=== PATIENT | female | born 1935 | race Caucasian/White ===

== ENCOUNTER 2016-09-05 12:18 | Inpatient (IN) | payer MEDICARE ==
[~2016-09-05] VITALS: Ht 160 cm; Wt 79.2 kg
[2016-09-05] VITALS (9 sets, daily range): BP systolic 63–145; BP diastolic 48–62; PULSE 74–93; RESP 12–19; O2SAT 98–100
[~2016-09-05 12:18] MED LIST: ALPR0.5T8 PO; ATOR20TA65 PO; BUDE3CAP7 PO; ELTR25TA PO; FOLI0.8T PO; FUR20 PO; GLPZ5T PO; HYDR-4003 PO; INSU100I16 SUBQ; INSU100V7 SUBQ; IRON 65 MG PO; ISOS30TA8 PO; LEVO150T5 PO; OMEP20TA24 PO; OXYC5TAB72 PO; SODI650T PO; SPIR50TA2 PO
--- NOTE | 2016-09-05 12:25 | ED.REPORT ---
HPI-General Illness Date of Service Sep 05, 2016 ED Provider: Gisselle Rosa MD 80 year old female with a history of cryptogenic cirrhosis, pancytopenia, esophageal varices, renal insufficiency, and blood transfusion 08/24/16 presents to the ER due to vomiting blood just prior to arrival. She was in the hospital here today seeing Dr. Barron, Oncology, for her biweekly paracentesis when she started experiencing "burning" in her esophagus, and began vomiting bright red blood after she was given IV Benadryl. Vomiting has been gradually improving since onset. Patient denies fever, chills, cough, and any other symptoms at this time. Nursing Notes Stated Complaint: VOMITING BLOOD Chief Complaint: Female Abdominal Pain Nursing Notes Reviewed: Yes Allergies: Coded Allergies: No Known Allergies (Verified , 03/23/16) Scheduled ([Iron 65 Mg]) 130 MG PO ESAU Atorvastatin Calcium (Atorvastatin Calcium) 20 Mg Tablet 20 MG PO DAILY Budesonide EC (Budesonide EC) 3 Mg Capdr...er 6 MG PO DAILY Eltrombopag Olamine (Promacta) 25 Mg Tablet 25 MG PO DIRECTED M,W,F Folic Acid (Folic Acid) 0.8 Mg Tablet 0.8 MG PO DAILY Furosemide (Furosemide) 20 Mg Tab 20 MG PO DAILY Glipizide (Glipizide) 5 Mg Tablet 5 MG PO DAILY Insulin Glargine (Lantus U100 Insulin Vial) 100 Unit/Ml Vial 65 UNIT SUBQ QPM- INSULIN Insulin NPL/Insulin Lispro (HumaLOG 75/25 U100 Insulin Kwikpen) 100 Unit/1 Ml Insuln.pen 15 UNIT SUBQ AM Isosorbide DN (Isosorbide DN) 30 Mg Tablet 30 MG PO DAILY Levothyroxine (Levothyroxine) 150 Mcg Tablet 150 MCG PO DAILY Omeprazole Magnesium (Prilosec Otc) 20 Mg Tablet.dr 20 MG PO DAILY Sodium Bicarbonate (Sodium Bicarbonate) 650 Mg Tablet 1,300 MG PO DAILY Spironolactone (Spironolactone) 50 Mg Tablet 50 MG PO DAILY Scheduled PRN Alprazolam (Alprazolam) 0.5 Mg Tablet 0.5 MG PO TID PRN PRN For Anxiety Hydrocodone-Acetaminophen 5-325 mg (Hydrocodone-Acetaminophen 5-325 mg) 1 Each Tablet 1 TABLET PO Q4H PRN PRN For Pain oxyCODONE (oxyCODONE) 5 Mg Tablet 5-10 MG PO Q4H PRN PRN For Pain General Time Seen by MD: 12:21 Chief Complaint Vomiting (Blood) Hx Obtained From: Patient Arrived By: Walk-in Sudden in Onset?: Yes Onset Occurred: Just prior to arrival Symptom Duration: Since onset Pertinent Negative: Pt denies other symptoms Similar Sx Previous: No Past Medical History Past Medical History Cryptogenic cirrhosis Pancytopenia Esophageal varices Renal insufficiency Anemia PUD Reports: Diabetes mellitus, Hyperlipidemia Reports: Atrial fibrillation, Thyroid disease (Hypothyroidism) Smoking History Unknown if Ever Smoker Social History Other Social History: Good social support Ambulatory Status Independent Review of Systems +Esophageal "Burning" Full Review of Systems Constitutional: Denies: Chills, Fever Respiratory: Denies: Non-productive cough, Shortness of breath Cardiovascular: Denies: Chest pain GI: Reports: Hematemesis, Nausea, Vomiting, Denies: Abdominal pain, Constipation, Diarrhea Complete sys rev & neg: except as marked. Physical Exam Vital Signs Vital Signs Date Time Temp Pulse Resp B/P Pulse Ox O2 Delivery O2 Flow Rate FiO2 09/05/16 14:16 74 15 133/62 100 09/05/16 13:28 92 19 124/57 98 Nasal Cannula 2 09/05/16 13:02 85 15 145/59 99 Nasal Cannula 2 09/05/16 12:22 93 12 144/59 99 Room Air Initial VS: Reviewed Head / Eyes: Atraumatic, Normocephalic Neck: Supple, Non-tender, Full range of motion Skin: Warm, Dry, No cyanosis Neurologic: Alert, Oriented, Nonfocal General/Constitutional: Awake, Alert, Well developed Appearance / Presentation: Positive: Cachectic, Frail Respiratory / Chest: Breath sounds NL, No respiratory distress, No rales, No rhonchi, No wheezing Cardiovascular: Heart rate NL, Regular rhythm, Heart sounds NL, Cap refill not delayed, Peripheral circulation NL Significant ascites. Ankle / Foot: Full range of motion, Neurologic intact, Vascular intact Mild redness to the dorsum of the right foot. Interpretation & Diagnostics Lab Results Interpretation Result Diagram: 09/05/16 1435 09/05/16 1208 Test 09/05/16 12:08 09/05/16 14:35 White Blood Count 3.2th/mm3 (3.8-10.1) Red Blood Count 3.31mil/mm3 (3.90-5.20) Mean Corpuscular Volume 91.2fL (81-100) Mean Corpuscular Hemoglobin 28.7pg (27.0-35.0) Mean Corpuscular Hemoglobin Concent 31.5% (32.0-37.0) Red Cell Distribution Width 17.2% (12.3-15.4) Platelet Count 37bil/L (150-400) Neutrophils (%) (Auto) 79.4% (40-74) Lymphocytes (%) (Auto) 12.2% (14-46) Monocytes (%) (Auto) 5.9% (4-12) Eosinophils (%) (Auto) 2.2% (0-5) Basophils (%) (Auto) 0.3% (0-3) Prothrombin Time 13.3sec (8.1-12.5) Prothromb Time International Ratio 1.24ratio Sodium Level 134mEq/L (134-144) Potassium Level 4.8mEq/L (3.5-5.2) Chloride Level 104mEq/L (97-108) Carbon Dioxide Level 16mmol/L (18-29) Blood Urea Nitrogen 59mg/dL (8-27) Creatinine 2.13mg/dL (0.57-1.00) Estimat Glomerular Filtration Rate 32mL/min (>59) Glucose Level 145mg/dL (60-99) Calcium Level 9.0mg/dL (8.5-10.1) Total Bilirubin 0.5mg/dL (0.0-1.2) Aspartate Amino Transf (AST/SGOT) 14U/L (0-50) Alanine Aminotransferase (ALT/SGPT) 8U/L (0-32) Alkaline Phosphatase 93U/L (25-165) Troponin T < 0.010ug/L (0.0-0.011) Total Protein 7.5g/dL (6.4-8.4) Albumin 3.6g/dL (3.4-5.0) Hold Calvo Top Tube Received (Received) Hemoglobin 8.7g/dL (12.0-15.6) Hematocrit 27.4% (35.0-46.0) Lab Results Interpretation: 08:30 Hematology Hgb 9.3 Hct 29.8 Plt Count 32 ECG Interpretation ECG Interpretation: Atrial-sensed ventricular-paced complexes, rate 85 Time: 13:00 Interpreted by: ED physician Re-Eval/Medical Decision Med Decision/Clinical Course 80-year-old woman presents with hematemesis and maroon stools. Hemodynamically stable. Cirrhosis with esophageal varices and chronic anemia with thrombocytopenia and a platelet count of 37. IV access is a significant issue. She has a single 20-gauge IV and was significant attempts no additional peripheral IVs were able to be obtained Contacted GI who is planning to do endoscopy. Explained that we need a central line placed first. Endoscopy will be under anesthesia and anesthesia has agreed to do the central line. This is complicated by the fact that she has a pacer defibrillator. Anesthesia has requested a echocardiogram prior to placing the central line. Echocardiogram has been ordered. In the meantime the patient remains hemodynamically stable. Platelets are infusing. There is a history of difficulty with transfusions however she has had all antibodies in our lab is able to screen for that and we will be able to transfuse and do have blood being made available at this point We will see if we are able to facilitate transfer to CCU bed directly from the operating room 15:30 Echo has been completed. Await read. CCU bed available In discussion with anesthesia and GI will see if the PICC line can be placed before we attempt a central line Continued hemodynamically stable however continued obvious GI bleeding with more overt melena just prior to transfer to the CCU Not completely resuscitated at this point she has had a liter of fluid she has had platelets first year of blood has been started we still have not only a single 20-gauge antecubital line in the right antecubital fossa. ICU staff admitting physician staff and additional ER staff are all aware of access status should she have an acute decompensation Time of Eval: 13:10 Re-Evaluation/Progress Note: Updated patient and daughter on the plan of care. Discussed lab and imaging results and need for admission. Patient is amenable to the plan. All other questions addressed. Consultation #1: Referral / Consult Name: Sindhu Alvarado MD Consulted With: On-call physician (MIGUEL) Call Returned at: 12:43 Lead Esthetician: Agrees with eval, Agrees with plan Note: Agrees to consult. Recommends antibiotics and admission. Consultation #2: Call Returned at: 13:14 Note: Called blood bank. Consultation #3: Referral / Consult Name: Abigail Castanon Hair Consulted With: Hospitalist Call Returned at: 14:00 Lead Esthetician: Agrees with eval, Agrees with plan, Accepts admit Consultation #4: Referral / Consult Name: Sindhu Alvarado MD Consulted With: On-call physician (GI) Call Returned at: 14:13 Note: Discussed access difficulties, and echocardiogram ordered, with GI and anesthesia. Both recommend PICC line. Consultation #5: Referral / Consult Name: Sindhu Alvarado MD Consulted With: On-call physician (GI) Call Returned at: 14:37 Note: Updated Dr. Alvarado on patient care. Counseled Regarding: Diagnosis, Lab results, Need for admission Discharge & Departure Primary Impression: Hematemesis Additional Impressions: Upper GI bleed Thrombocytopenia Cirrhosis Disposition: ADMITTED TO HOSPITAL Discharge Condition All VS Reviewed: Yes Condition: Stable Referrals: Liang Smith MD (PCP) Crit Care Except Billable Proc Time Spent: 30-74 minutes (37) Services Performed: Patient management by me, Time spent at bedside, Reviewing test results, Reviewing imaging, Discussing patient care, Documentation in record, Time with fam/surrogate Scribe Attestation Portions of this note were transcribed by Sudhir Dela Cruz. I, Dr. Rosa, personally performed the history, physical exam and medical decision-making; I reviewed and confirmed the accuracy of the information in the transcribed note. Signed by: Roberta Paz, 09/05/2016 at 15:11 copies to: Liang Smith MD, Shawna L MD Sep 05, 2016 12:25 SUDHIR DELA CRUZ Sep 05, 2016 12:37
[2016-09-05] MEDS ORDERED: 0.9% Sodium Chloride 1,000 ML IV ONE (12:37)
[2016-09-05] MEDS ORDERED: cefTRIAXone Inj 2,000 MG in Dextrose 5% Minibag Plus 50 ML IV ONE (12:40)
[2016-09-05] MEDS ORDERED: Octreotide Inj 500 MCG in 0.9% Sodium Chloride 100 ML IV ONE (12:40)
[2016-09-05 13:02] LABS: BASOPHILS % (AUTO) 0.3 % (0-3); EOSINOPHILS % (AUTO) 2.2 % (0-5); MONOCYTES % (AUTO) 5.9 % (4-12); Mean Corpuscular Hemoglobin 28.7 pg (27.0-35.0); Mean Corpuscular Volume 91.2 fL (81-100); NEUTROPHILS % (AUTO) 79.4 % (40-74)
[2016-09-05 13:03] LABS: INR 1.24 ratio
[2016-09-05 13:04] LABS: Platelet Count 37 bil/L (150-400)
[2016-09-05] MEDS: Lactated Ringer's 1,000 ML IV SCH ×2 (13:08→18:25)
[2016-09-05] MEDS ORDERED: Lactated Ringer's 500 ML IV PRN (13:08)
[2016-09-05] MEDS ORDERED: HYDROmorphone 1 mg/mL Inj IVPUSH PRN (13:10)
[2016-09-05] MEDS ORDERED: MetoCLOpramide 5 mg/mL 2 mL Inj IVPUSH PRN (13:10)
[2016-09-05] MEDS ORDERED: EPHEDrine Sulfate 50 mg/mL Inj IVPUSH PRN (13:10)
[2016-09-05] MEDS ORDERED: Ondansetron 2 mg/mL 2 mL Inj IVPUSH PRN (13:10)
[2016-09-05] MEDS ORDERED: Phenylephrine 10,000 mCg/mL Inj IVPUSH PRN (13:10)
[2016-09-05] MEDS ORDERED: Dexamethasone 4 mg/mL Inj IVPUSH PRN (13:10)
--- NOTE | 2016-09-05 13:14 | PCM.HPANE ---
Patient Data Surgeon Admitting Provider: Attending Provider: Primary Care Physician:Liang Smith MD Other Provider: Reason for Visit Vomiting Blood Ht/WT & BMI Height (Feet): 5 Height (Inches): 3 Weight (Kilograms): 63.64 Body Mass Index Allergies Coded Allergies: No Known Allergies (Verified , 03/23/16) Past Anesthesia History Anesthesia History: Denies:: Anesthesia Reactions Diabetes History Hx Diabetes?: Yes MRSA MRSA: No Medications Hypertension Medication: Yes Home Meds Incl Beta Patti: No Reported Medications Omeprazole Magnesium (Prilosec Otc)20 Mg Tablet.dr20 Mg PO DAILY #1 PKG Ref 0 08/22/16 Levothyroxine 150 Mcg Oxsjvt473 Mcg PO DAILY Ref 0 08/22/16 Eltrombopag Olamine (Promacta)25 Mg Hbslyq44 Mg PO DIRECTED M,W,F 11/02/15 Hydrocodone-Acetaminophen 5-325 mg 1 Each Tablet1 Tablet PO Q4H PRN For Pain Ref 0 02/17/15 Insulin Glargine (Lantus U100 Insulin Vial)100 Unit/Ml Vial65 Unit SUBQ QPM- INSULIN #1 VIAL Ref 0 09/02/14 Insulin NPL/Insulin Lispro (HumaLOG 75/25 U100 Insulin Kwikpen)100 Unit/1 Ml Insuln.pen15 Unit SUBQ AM #1 PENINJ Ref 0 09/02/14 Glipizide 5 Mg Tablet5 Mg PO DAILY 30 Days 09/02/14 Isosorbide DN 30 Mg Btahgc50 Mg PO DAILY Ref 0 09/02/14 Folic Acid 0.8 Mg Tablet0.8 Mg PO DAILY 09/02/14 Budesonide EC 3 Mg Capdr...er6 Mg PO DAILY Ref 0 09/02/14 Atorvastatin Calcium 20 Mg Kmzwba22 Mg PO DAILY #30 TABLET Ref 0 09/02/14 Alprazolam 0.5 Mg Tablet0.5 Mg PO TID PRN For Anxiety 30 Days Ref 0 09/02/14 Sodium Bicarbonate 650 Mg Tablet1,300 Mg PO DAILY 06/05/14 oxyCODONE 5 Mg Tablet5-10 Mg PO Q4H PRN For Pain Ref 0 04/24/14 Spironolactone 50 Mg Tafvnz24 Mg PO DAILY Ref 0 12/05/13 Furosemide 20 Mg Tab20 Mg PO DAILY Ref 0 12/05/13 [Iron 65 Mg] No Conflict Hknrq601 Mg PO ESAU 06/06/13 History History of ENT Problems?: No HEENT History: Denies:: Abnormal Airway Cataracts Difficult Intubation Dysphagia Glaucoma Hearing Problem Sinus Problem TMJ Denture Type: None Teeth Condition: Within Normal Limits Hx of Heart Problems?: Yes Cardiovascular History: Positive for:: Congestive Heart Failure Heart Murmur Irregular Heartbeat (afib) Denies:: Cardiac Surgery Chest Pain Edema Hypertension Thrombophlebitis Hx of Respiratory Problem?: No Respiratory History: Denies:: Tuberculosis Hx Neurologic Problems?: Yes Neurological History: Positive for:: Dizziness Hx of GI Problems?: Yes Hx of Problems?: Yes Genitourinary History: Denies:: HX of Hemodialysis Kidney Stones Urinary Tract Infection HX of Peritoneal Dialysis: No Female Hx: Denies:: Currently Endometriosis Pelvic Inflammatory Problems with Breasts? Hx Musculoskeletal Problems?: Yes Musculoskeletal History: Denies:: Joint Replacement Musculoskeletal Trauma Hx of Psycho/Social Problems?: Yes Psycho Social History: Positive for:: Anxiety Denies:: Bipolar Disorder Hx Depression Suicide Attempt Hx Surgeries?: Yes Hx Any Other Health Problems?: Yes Other History: Positive for:: Hospitalization Thyroid Disease (hypothyroid) Denies:: Cancer Endocrine Disease History Blood Transfusions: Positive for:: Blood Transfusions (platelets) Hx Diabetes: Yes Smoking Status: Unknown if Ever Smoker Stop/Bang Treated for Sleep Apnea?: No Do You Have a CPAP Machine?: No BRODIE Risk Assessment: Low Risk, <3 Yes Risk Assessment Category Category 1A: Patient has history of documented sleep apnea, and HAS NOT received any narcotic, sedative or anesthesia administration during this stay. Category 1B: Patient has history of documented sleep apnea, and HAS received any narcotic , sedative or anesthesia administration during this stay Category 2: Patient has SUSPECTED Obstructive Sleep Apnea, and HAS received any narcotic , sedative or anesthesia administration during this stay. Category 3: Patient has SUSPECTED Obstructive Sleep Apnea and HAS NOT received narcotic, sedative or anesthesia administration during this stay. Category 4: Outpatient in Procedural Areas with known sleep apnea or who screen positive for High Risk via the STOP/BANG questionnaire. Exam Exam Vital Signs Vital Signs Date Time Temp Pulse Resp B/P Pulse Ox O2 Delivery O2 Flow Rate FiO2 09/05/16 13:02 85 15 145/59 99 Nasal Cannula 2 09/05/16 12:22 93 12 144/59 99 Room Air General Appearance: Oriented X3 HEENT/AIRWAY: MP 2 Lungs: Other Heart: Other Meds/Labs/Diagnostics Labs Test 09/05/16 12:08 White Blood Count 3.2th/mm3 (3.8-10.1) Red Blood Count 3.31mil/mm3 (3.90-5.20) Hemoglobin 9.5g/dL (12.0-15.6) Hematocrit 30.2% (35.0-46.0) Mean Corpuscular Volume 91.2fL (81-100) Mean Corpuscular Hemoglobin 28.7pg (27.0-35.0) Mean Corpuscular Hemoglobin Concent 31.5% (32.0-37.0) Red Cell Distribution Width 17.2% (12.3-15.4) Platelet Count 37bil/L (150-400) Neutrophils (%) (Auto) 79.4% (40-74) Lymphocytes (%) (Auto) 12.2% (14-46) Monocytes (%) (Auto) 5.9% (4-12) Eosinophils (%) (Auto) 2.2% (0-5) Basophils (%) (Auto) 0.3% (0-3) Prothrombin Time 13.3sec (8.1-12.5) Prothromb Time International Ratio 1.24ratio Hold Calvo Top Tube Received (Received) Plan Impression Patient chart reviewed, patient interviewed and anesthestic plan with risks, benefits, and alternatives discussed, and informed consent obtained. ASA Physical Status: ASA4 Plus Emergency Anesthetic Support Modalities: Arterial Line, Central Line Anesthetic Plan: GA Bene/Risks/Altern/Consents: Yes HP Complete Prior to Induction: Yes Gee Pandey MD Sep 05, 2016 13:14
[2016-09-05 13:24] LABS: TROPONIN T < 0.010 ug/L (0.0-0.011)
--- NOTE | 2016-09-05 15:11 | DRSVH ---
PROCEDURE: US ABDOMEN DOPPLER, LIMITED INDICATIONS: cirrhosis, GI bleed TECHNIQUE: Real-time scanning was performed of the abdominal and retroperitoneal organs, with image documentatio n. Color and pulse Doppler interrogation was also performed of the hepatic and splenic vessels, or o f the lesion of interest. COMPARISON: Outside [facility], US, US ABDOMEN, 11/03/2015, 7:51. [facility], US, ABDOMEN LTD, 05/30/2016, 8:46. [facility], US, ABDOMEN LTD, 05/17/2016, 8:57. FINDINGS: Liver: Cirrhotic appearance of the liver redemonstrated which is diffusely heterogeneous and nodular. No definite focal hepatic abnormalities. Doppler: Main portal vein is patent, with luminal diameter of 18 mm (normal of 13-16 mm). On pulse Doppler interrogation, portal vein flow direction is hepatopetal. Hepatic artery Doppler waveforms d emonstrate normal systolic upstrokes. Hepatic veins are all patent, with expected triphasic Doppler waveforms. Gallbladder: Surgically absent. Biliary ducts: No intrahepatic biliary ductal dilatation. Extrahepatic bile duct is not well seen. Spleen: Spleen is enlarged in size and homogeneous in echotexture. Pancreas: Visualized portions of the pancreas appear normal. Kidneys: Both kidneys are normal in size and echotexture. Bilateral renal cortical thinning. Right kidney measures 7.7 cm long; left kidney measures 9.3 cm long. No hydronephrosis or nephrolithiasis. No solid renal masses. Aorta: Visualized abdominal aorta is normal in caliber at less than 3 cm. Iliacs: Proximal common iliac arteries are normal in caliber at less than 2.5 cm. IVC: Intrahepatic inferior vena cava is patent. Miscellaneous: Moderate ascites. IMPRESSION: 1. Cirrhotic appearance of the liver in no discrete focal hepatic abnormality is seen. 2. Enlarged portal vein otherwise normal hepatoportal Doppler assessment. 3. Splenomegaly suggesting portal hypertension. 4. Bilateral renal cortical thinning. 5. Moderate ascites. Dictated by: Frank NAVARRO Interpreted: Edwin Biggs MD on 09/05/2016 at 15:08 Transcribed by: ASHLEY on 09/05/2016 at 15:11 Approved by: Edwin Biggs M.D. on 09/05/2016 at 17:08
[2016-09-05] MEDS ORDERED: Sodium Chloride LOK Flush 10 mL Syringe IVFLUSH PRN ×2 (15:50)
--- NOTE | 2016-09-05 16:05 | DRSVH ---
[facility] [address] [place] [address] Echocardiogram Report Name: FAMILIA SHELLEYudy Date : 09/05/2016 Height: 63 in Hospital Exam Location: [facility] Weight: 140 lb Gender: Female BSA: 1.7 m2 : 1935 Age: 80 yrs BP: 133/62 mmHg Reason For Study: PACER, CENTRAL LINE, PRE-SURGERY History: CABG,PACEMAKER Ordering Physician: Performed By: Tatyana Valdivia Interpretation Summary The left ventricle is mildly dilated. Left ventricular ejection fraction is estimated to be 40%. Apical and anteroseptal akinesis, inferoapical dyskinesis, c/w prior LAD infarct The right ventricle is mildly dilated. There is a pacemaker lead in the right ventricle. The left atrium is severely dilated. There is mild to moderate mitral regurgitation. There is no hemodynamically significant valvular aortic stenosis. There is moderate tricuspid regurgitation. The right ventricular systolic pressure is estimated at 51 mmHg assuming a right atrial pressure of 8 mm Hg. There is mild pulmonic regurgitation. There are large-sized bilateral pleural effusions noted. Procedure: A two-dimensional transthoracic echocardiogram with color flow and Doppler was performed. The study quality was technically adequate. There is no prior echocardiogram noted for this patient. The patient has a paced rhythm. Left Ventricle: The left ventricle is mildly dilated. There is normal left ventricular wall thickness. The LVOT diameter is 2.2 cm. Left ventricular ejection fraction is estimated to be 40%. Apical and anteroseptal akinesis, inferoapical dyskinesis, c/w prior LAD infarct. Spectral Doppler of the mitral valve shows a normal E/A wave ratio. Right Ventricle: The right ventricle is mildly dilated. There is a pacemaker lead in the right ventricle. The right ventricular systolic function is normal. Atria: The left atrium is severely dilated. Right atrial size is normal. There is no Doppler evidence for an atrial septal defect. Mitral Valve: The mitral valve leaflets appear mildly thickened, but open well. There is mild mitral annular calcification. There is mild to moderate mitral regurgitation. Aortic Valve: The aortic valve is trileaflet. There is mild aortic valve sclerosis. The peak aortic velocity is 2.1 m/sec. The aortic valve mean gradient is 11 mmHg. The calculated aortic valve area is 1.9 cm2. There is no hemodynamically significant valvular aortic stenosis. No aortic regurgitation is present. Tricuspid Valve: The tricuspid valve leaflets are thin and pliable. There is moderate tricuspid regurgitation. The right ventricular systolic pressure is estimated at 51 mmHg assuming a right atrial pressure of 8 mm Hg. Pulmonic Valve: The pulmonic valve leaflets are thin and pliable; valve motion is normal. There is mild pulmonic regurgitation. Great Vessels: The aortic root is normal size. The dimensions of the ascending aorta are normal. The pulmonary artery is normal size. The IVC is of normal diameter and collapses less than 50% with a sniff. This suggests a right atrial pressure of 8 mm Hg. Pericardium/ Pleura There are large-sized bilateral pleural effusions noted. MMode/2D Measurements & Calculations LVIDd: 6.1 cm LA dimension: 5.2 cm RA long axis LVOT diam: 2.2 cm LVIDs: 4.8 cm AoV Opening FS: 21.0 % LA A2 area: 23.2 cm RA area EPSS: 1.1 cm LA A4 area: 26.1 cm Ao root diam IVSd: 0.83 cm LA length (vol) : 16.8 cm LVPWd: 0.90 cm RA vol asc Aorta Diam LA vol: 99.6 ml : 47.2 ml LA vol index RA Ao Arch Diam (Prox : 28.4 mm2 Trans): 2.7 cm : 59.9 ml/m2 LV barker. diameter/BSA LV sys. diameter/BSA RVD2 (mid) (cm/m^2): 3.7 (cm/m^2): 2.9 : 4.3 cm Doppler Measurements & Calculations Ao V2 max MV E max romain MV E/A: 1.2 TR max romain : 210.6 cm/sec : 122.0 cm/sec Pulm A Revs : 328.2 cm/sec Ao max P.7 mmHg MV A max romain Dur: 0.09 sec TR max PG Ao mean P.5 mmHg : 103.8 cm/sec MV A dur : 43.1 mmHg LVOT Max Romain MV P1/2t: 49.0 msec : 0.14 sec PA V2 max : 96.8 cm/sec : 144.9 cm/sec PA mean PG JEANETTE(I,D): 1.9 cm sev ratio: 0.48 PA Accel Time : 0.08 sec MV P1/2t max romain Ao V2 mean LV V1 max PG PA V2 mean : 152.2 cm/sec : 109.7 cm/sec Ao V2 VTI: 50.7 cm LV V1 VTI MVA(P1/2t): 4.5 cm2 : 24.2 cm JEANETTE(V,D): 1.8 cm2 JEANETTE indexed to BSA Pulm A Revs Dur - MV A (cm^2/m^2): 1.1 Dur: -0.04 msec Electronically signed by: Yung Shahid on Reading Physician:09/05/2016 04:04 PM
[2016-09-05] MEDS: 0.9% Sodium Chloride 250 ML IV SCH (16:30)
[2016-09-05] MEDS ORDERED: FERR-83 PO (16:51)
[2016-09-05] MEDS ORDERED: FOLI0.4T2 PO (16:51)
[2016-09-05] MEDS ORDERED: LACT10SO PO (16:51)
[2016-09-05] MEDS ORDERED: CYCL10TA9 PO (16:51)
[2016-09-05] MEDS ORDERED: LEVO200T6 PO (16:51)
[2016-09-05] MEDS ORDERED: FURO40TA4 PO (16:51)
[2016-09-05] MEDS ORDERED: DOXY100C2 PO (16:54)
[2016-09-05] MEDS ORDERED: Alum-Mag Hydrox-Simeth 30 mL Suspension PO PRN (17:35)
[2016-09-05] MEDS ORDERED: Polyethylene Glycol (PEG) 17 Gm Powder PO PRN (17:35)
[2016-09-05] MEDS ORDERED: Senna-Docusate 8.6-50 mg Tablet PO PRN (17:35)
--- NOTE | 2016-09-05 17:43 | DRSVH ---
PROCEDURE: X-RAY PICC LINE PLACEMENT BY NURSE ([id number]) INDICATIONS: Venous access COMPARISON: None. FINDINGS: PICC was placed by the intravenous therapy team from the right side. Fluoroscopic spot fi lm demonstrates tip of PICC at the cavoatrial junction . IMPRESSION: Tip of PICC lies at the cavoatrial junction. Dictated by: Mehdi Cummings M.D. on 09/05/2016 at 17:41 Approved by: Mehdi Cummings M.D. on 09/05/2016 at 17:42
--- NOTE | 2016-09-05 17:44 | PCM.HPMED ---
Subjective Date of Service Sep 05, 2016 Primary Provider: Admitting Physician: Abigail Castanon DO Primary Care Physician: Liang Smith MD Attending Physician: Abigail Castanon DO Chief Complaint: Abdominal pain with hematemesis History of Present Illness: Ms. Wynne is a 80-year-old female with past medical history of cryptogenic cirrhosis, pancytopenia - requiring blood transfusions 08/24/2016, esophageal varices, renal insufficiency, pacer defibrillator presented to the ER secondary to hematemesis and maroon color stools. Just prior to ED arrival she was seeing oncologist Dr. Barron for biweekly paracentesis when she had acute onset of "burning" in her esophagus followed by hematemesis of bright red blood. This occurred just after being given IV Benadryl. In the ED patient was found to have a count of 37. IV access difficult to obtain, central line required. GI consult at from ED for emergent endoscopically. Anesthesia who agreed to do the central line required an echocardiogram prior to placing the central line. In the ED patient remained hemodynamically stable, typed and crossed. Patient interview just prior to receiving PICC line prior to endoscopic procedure. She denies chest pain, shortness of breath though endorses abdominal pain dizziness and general malaise. She states she has nausea and vomiting abdominal pain and discomfort with diarrhea. Review of systems was conducted with the patient and found to be negative except as above in the history of present illness. Allergies Coded Allergies: No Known Allergies (Verified , 09/05/16) Home Medications Per med rec: Alprazolam 0.5 mg by mouth 3 times a day Atorvastatin 20 mg by mouth daily Budesonide 6 g by mouth daily Promacta 25 mg by mouth Monday was nephrotic Folic acid 0.8 mg by mouth daily Furosemide 20 mg by mouth daily Glipizide 5 mg by mouth daily Hydrocodone acetaminophen 5-325 when necessary every 4 Insulin glargine 65 units subcutaneous Insulin lispro 15 units subcutaneous a.m. Isosorbide 30 mg by mouth daily Levothyroxine 150 g by mouth daily Omeprazole 20 mg by mouth daily Oxycodone 5-10 mg by mouth every 4 Sodium bicarbonate 1300 mg by mouth daily Spironolactone 50 mg by mouth daily Iron 130 mg by mouth daily Per outpatient [facility] records - in addition to those mentioned in the med rec active medications include: Cephalexin 250 mg by mouth every 6 Lactulose 30 mL by mouth every day Levothyroxine 200 g tablets daily, not consistent with med rec Folic acid 400 g daily Cyclobenzaprine 10 mg by mouth daily Enoxaparin 1 kyle per cakes subcutaneous twice a day Furosemide 40 mg daily, not consistent with med rec Nadelol PO 120 mg every day Lipitor 40 mg daily Aldactone 50 mg daily Fosamax PMH Cryptogenic cirrhosis Pancytopenia Esophageal varices Renal insufficiency Anemia PUD Reports: Diabetes mellitus, Hyperlipidemia Reports: Atrial fibrillation, Thyroid disease (Hypothyroidism) Per [facility] outpatient records problem list: CKD A. fib Blood clot of common bile duct Anemia Hyperlipidemia Peptic ulcer disease Chronic back pain CAD CHF Diabetes mellitus Hypothyroidism Social History Hx Alcohol Use: No Smoking Status: Unknown if Ever Smoker Exam Vital Signs Vital Sign - Last Date Time Temp Pulse Resp B/P Pulse Ox O2 Delivery O2 Flow Rate FiO2 09/05/16 14:16 74 15 133/62 100 09/05/16 13:28 Nasal Cannula 2 Exam General: Elderly female in mild to moderate distress lying in hospital bed. Appropriately interactive. Daughter at bedside. HEENT: Normocephalic, atraumatic. External ears without defect. Pupils equal, round, and reactive to light and accommodation. Pale sclera. Mucous membranes moist Neck: No jugular venous distension. No bruits. Cardiovascular: Regular rate and rhythm with no murmurs, rubs, or gallops appreciated Pulmonary: Clear to auscultation bilaterally with no crackles. Normal respiratory effort with no use of accessory muscles. Abdomen: Distended abdomen, soft palpation 4 quadrants. Mildly tender to palpation. Significant ascites Extremities: No clubbing, cyanosis. Lower extremity edema bilaterally to ankles. Right upper extremity wrist warm and tender to palpation. Skin: Normal temperature, turgor, and texture. Neurological: Cranial nerves grossly intact. Psychiatric: Normal mood and affect. Alert and oriented to person, place, and time. Lab and Diagnostics Result Diagram: 09/05/16 1435 09/05/16 1208 Cardiac Echo Impressions . Echocardiogram Report Interpretation Summary: The left ventricle is mildly dilated. Left ventricular ejection fraction is estimated to be 40%. Apical and anteroseptal akinesis, inferoapical dyskinesis, c/w prior LAD infarct The right ventricle is mildly dilated. There is a pacemaker lead in the right ventricle. The left atrium is severely dilated. There is mild to moderate mitral regurgitation. There is no hemodynamically significant valvular aortic stenosis. There is moderate tricuspid regurgitation. The right ventricular systolic pressure is estimated at 51 mmHg assuming a right atrial pressure of 8 mm Hg. There is mild pulmonic regurgitation. There are large-sized bilateral pleural effusions noted. Electronically signed by: Yung Shahid on Additional Diagnostics: . US ABDOMEN DOPPLER, LIMITED IMPRESSION: 1. Cirrhotic appearance of the liver in no discrete focal hepatic abnormality is seen. 2. Enlarged portal vein otherwise normal hepatoportal Doppler assessment. 3. Splenomegaly suggesting portal hypertension. 4. Bilateral renal cortical thinning. 5. Moderate ascites. Dictated by: Frank Rosa RRA Interpreted: Edwin Biggs MD on 09/05/2016 at 15 :08 Assessment & Plan 80-year-old female past medical history of cryptogenic cirrhosis pancytopenia esophageal varices admitted for hematemesis and hematochezia. From ED C PICC line placement followed by GI upper and lower endoscopy for source identification. 1. Gastrointestinal bleed. Acute Present on admission. Ongoing - Time of dictation patient at endoscopy procedure - Type and cross, received 1 unit (patient has Aurelio antibody) - Received Octreotide in ED - Transfuse if hemoglobin falls below 8 2.Thrombocytopenia. Present on admission. Acute. Ongoing - Platelet transfusion - Continue to monitor 3. Hypertension. Chronic. Present admission. Ongoing - Hold home meds - Awaiting med rec - We will restart appropriate home medications based on hemodynamic state 4. Hyperlipidemia. Chronic. Present admission. Ongoing - Hold home meds - Awaiting med rec, restart appropriate medications upon its completion 5. Diabetes type II. Chronic. Present admission. Ongoing - Correctional scale insulin ordered 6. Hypothyroidism. Chronic. Present on admission. Ongoing - Hold home meds, awaiting med rec 7. Chronic kidney disease. Present on admission. Ongoing - Avoid nephrotoxic agents - IV hydration - Continue to monitor 8. Possible cellulitis. Present on admission. Ongoing - Awaiting med rec - Infectious workup pending - Obtain previous records - Both patient and patient's daughter state DNR/DNI wishes however these were suspended for endoscopy procedure today Patient Status: Patient was admitted under inpatient status with expected length of stay greater than two midnights due to severity of presenting symptoms , risk of adverse event, and complexity of treatment plan. GI Prophylaxis: Proton Pump Inhibitor VTE Prophylaxis: SCDs Resuscitation Status: DNR/DNI:Do Not Resuscitate/Intubate Time spent Greater than 1 hour Attending Statement The patient was seen and examined together with Dr. Santiago on 09/05/16 and I agree with the history, exam and plan as outlined in the note above. COLLETTE SANTIAGO DO Sep 05, 2016 14:56 Abigail Castanon DO Sep 06, 2016 19:20
--- NOTE | 2016-09-05 18:19 | NUR ---
P: Alteration in fluid balance I: VSS. pt actively bleeding. Up to BSc and had red bloody stool with clots. Pt had emesis of blood in ED. Pt has not voided. NPO. PICC placed and Platelets infusing. Endo here to get pt. Assessment and admission completed. Daughter at bedside. Octreotide 50 mg/hr. NS 150cc/hr. Pt alert and oriented. Uses call light appropriately. Daughter at bedside and updated on plan of care and procedures. E: Guarded S: Alert and oriented. Off to endo. Frequent rounding.
[2016-09-05] MEDS: Pantoprazole 4 mg/mL 10 mL Inj IVPUSH SCH ×2 (19:00→19:31)
[2016-09-05] MEDS: fentaNYL-PF 50 mCg/mL 2 mL Inj IVPUSH PRN (19:32)
[2016-09-05 21:14] LABS: Mean Corpuscular Hemoglobin 28.1 pg (27.0-35.0); Mean Corpuscular Volume 92.9 fL (81-100)
--- NOTE | 2016-09-05 23:16 | NUR ---
Dr. Alvarado called to check on pt. Lab results given and decision was made by to go ahead and given a 6 pk of platelets to pt at this time. Order entered.
--- NOTE | 2016-09-05 23:36 | CONS ---
[address] [address] CONSULTATION REPORT PATIENT: FAMILIA SHELLEY : 1935 MR#: [id number] ADMIT: 09/05/2016 JOB ID: [id number] DATE OF SERVICE: 09/05/2016 REASON FOR CONSULTATION: Hematemesis. PHYSICIAN REQUESTING CONSULTATION: Gisselle Rosa MD. HISTORY OF PRESENTING ILLNESS: This is a 80-year-old woman whose past medical history is significant for cryptogenic cirrhosis, esophageal varices and ascites. She has been undergoing frequent large-volume paracenteses and today prior to being admitted to the hospital, she had undergone a large-volume paracentesis and had received albumin and prior to her receiving albumin, she received some IV Benadryl and following this she had what she describes as a burning sensation in her chest which was then followed by hematemesis. She was then brought to the emergency department where she was noted to have a hemoglobin of 9.5 with a hematocrit of 30.2, and platelet count of 37. Her PT is 13.3, INR of 1.24. Her sodium was 134, potassium 4.8, chloride of 104, CO2 of 16, BUN 59 and creatinine is 2.13. Her LFTs were normal. She was hemodynamically stable in the emergency department. Her only other complaints in addition to hematemesis was hematochezia. She denied any prior onset of diarrhea prior to the hematochezia. She denied any associated fevers, chills, or sweats. She did report that she was under the care of Dr. Thakur for her cirrhosis and follows up with him periodically in clinic. PAST MEDICAL HISTORY: Significant for cryptogenic cirrhosis, esophageal varices, renal insufficiency, diabetes mellitus, hyperlipidemia, atrial fibrillation, hypothyroidism. MEDICATIONS: Which she is unsure of include the followin. Alprazolam. 2. Atorvastatin. 3. Budesonide. 4. Promacta. 5. Folic acid. 6. Furosemide 20 mg daily. 7. Glipizide. 8. Hydrocodone with acetaminophen 5/325 as needed. 9. Insulin glargine and insulin lispro. 10. Isosorbide. 11. Levothyroxine. 12. Omeprazole 20 mg daily. 13. Oxycodone 5/10 every 4 hours. 14. Sodium bicarbonate 1300 mg daily. 15. Spironolactone 50 mg daily. 16. Iron 130 mg daily. REVIEW OF SYSTEMS: Her review of systems is otherwise negative, except as mentioned in the HPI. PHYSICAL EXAMINATION: Her temperature was 36.8, her pulse was 85, her respiratory rate was 15, blood pressure was 135/50, O2 saturation 100% on room air. Generally: She is an elderly-appearing woman, who is oriented to person, place, and time and answers questions appropriately. HEENT: No pallor. No icterus. Oropharynx is clear. Chest exam: Clear to auscultation bilaterally. Cardiovascular: Irregularly irregular. Abdomen is slightly distended, soft, nontender. I do not appreciate hepatosplenomegaly. Extremities with edema. LABORATORY TESTS: Showed a white blood cell count of 3.2, hemoglobin 9.5, hematocrit of .2, platelet count of 37. PT 13.3, INR of 1.24. Sodium 134, potassium 4.8, chloride of 104, CO2 16, BUN of 59, creatinine of 2.1. Her LFTs are normal. Glucose was mildly elevated at 145. Ultrasound of the abdomen with Doppler shows that the main portal vein is patent. Liver cirrhotic-appearing and nodular and moderate ascites is present. Gallbladder surgically absent. The spleen was enlarged. ASSESSMENT/PLAN: A 80-year-old woman with cryptogenic cirrhosis presenting with hematemesis and hematochezia. I suspect we may be dealing with variceal bleeding, either esophageal or gastric and, therefore, agree with octreotide that has been started by the emergency department. In addition, would recommend ceftriaxone and I would keep the patient n.p.o. I would make sure that the patient either has two peripheral IVs or a central line. Would have blood typed and screened on hold and goal would be to keep her blood counts in the 7-9 g range. Additionally, with her platelets being less than 50, would recommend keep transfusing platelets to keep above 50. Would recommend she have an ICU bed. I had a long discussion with the patient and her daughter regarding her do not resuscitate/do not intubate status which they have agreed to revoke for the procedure. Will plan for urgent endoscopy once the patient has a line access. Her ascites requires paracentesis with IV albumin replacement. Would check fluid for cell count and differential , total protein, culture and cytology. Thank you for allowing me to participate in this woman's care. If you have any further questions, please not hesitate to contact me. TOBY
--- NOTE | 2016-09-05 23:49 | ENDO ---
[address] [address] ENDOSCOPY PROCEDURE PATIENT: FAMILIA SHELLEY : 1935 MR#: [id number] ADMIT: 09/05/2016 JOB ID: [id number] PROCEDURE: Esophagogastroduodenoscopy. INDICATION: Hematemesis in a patient with known cirrhosis and ascites. Please see Dr. Gee Pandey's anesthesia report for details regarding ASA classification, Mallampati score, and medications. INSTRUMENT USED: [id number]. PROCEDURE DETAILS: After informed consent was obtained, the patient was brought into the GI suite, where she was placed on oxygen via nasal cannula and monitored with continuous pulse oximeter, telemetry, and blood pressure monitoring. A time-out was performed and then she was placed in a left lateral decubitus position and medications were administered for sedation. A bite block was placed. The standard EGD scope was inserted through the bite block and advanced under direct visualization to the second portion of the duodenum without difficulty. FINDINGS: 1. Bile stained mucosa was noted in the second portion of the duodenum, and extending into the proximal duodenum. Just with minimal scope trauma in the duodenum, there was a little bit of oozing of blood. 2. Normal-appearing pylorus. In the antrum and body of the stomach, the mucosa had a mosaic appearance consistent with portal gastropathy. No old or fresh blood was seen in the stomach. 3. Retroflexed views in the gastric body revealed small gastric varices in the fundus, which were not actively bleeding and did not show any stigmata of recent bleed. The mucosa was also edematous. 4. The GE junction was at approximately 38 cm. Arising from just above the GE junction, extending to approximately 28 cm, there were three columns of large varices. Four bands using a [employer] 7-band kit were placed successfully. IMPRESSION: 1. Large esophageal varices, status post band ligation x4. 2. Small esophageal varices. RECOMMENDATIONS: 1. Keep n.p.o. 2. No NG or OG tube placement. 3. Continue to follow H and H. 4. Continue octreotide for 72 hours. 5. PPI daily. 6. Follow platelet count periodically and transfuse if less than 50,000. COMPLICATIONS: None. ESTIMATED BLOOD LOSS: Less than 5 mL.
[2016-09-06] VITALS (18 sets, daily range): BP systolic 114–149; BP diastolic 42–75; PULSE 64–85; RESP 16–22; O2SAT 100
[2016-09-06] MEDS: fentaNYL-PF 50 mCg/mL 2 mL Inj IVPUSH PRN ×5 (00:14→21:36)
[2016-09-06] MEDS: Octreotide Inj 500 MCG in 0.9% Sodium Chloride 100 ML IV SCH ×3 (00:23→21:37)
[2016-09-06 04:59] LABS: BASOPHILS % (AUTO) 0.4 % (0-3); Mean Corpuscular Hemoglobin 28.5 pg (27.0-35.0); Mean Corpuscular Volume 93.5 fL (81-100); NEUTROPHILS % (AUTO) 80.4 % (40-74)
[2016-09-06 05:09] LABS: Platelet Count 25 bil/L (150-400)
[2016-09-06] MEDS ORDERED: 0.9% Sodium Chloride 250 ML IV SCH (05:25)
[2016-09-06 05:52] LABS: Magnesium 1.7 mg/dL (1.6-2.6)
--- NOTE | 2016-09-06 06:13 | NUR ---
Pt remained stable through the night. VSS. HR 100% v-paced. 5 BM's mixed with urine. Stool is dk maroon/blackish/brown in color with several tiny clots. Pt is a/o x3. Able to assist with turning. Fentanyl for stomach, back and arm pain with effectiveness. Platelets this am is 25, transfusing 1 pk of plates. H/H down to 7.0/23.0. Will transfuse 2 units PRBC's. Will continue to closely monitor pt.
[2016-09-06] MEDS: 0.9% Sodium Chloride 250 ML IV SCH ×2 (06:49→16:30)
[2016-09-06] MEDS: cefTRIAXone Inj 2,000 MG in Dextrose 5% Minibag Plus 50 ML IV SCH (07:34)
--- NOTE | 2016-09-06 09:07 | NUR ---
NUTRITION ASSESSMENT: ASSESS: Pt is a 80yo F admitted to CCU for GI bleed. She is s/p upper endoscopy and found to have variceal bleeding. GI is following. Pt is NPOx2 days. PMHX: cryptogenic cirrhosis, pancytopenia, esophageal varices, renal insufficiency, DM LABS: Reviewed. Bun 60, qc lab technician 2.10, Glu 132, Ca 8.0, Alb 2.9 MEDS: Reviewed. GI: BMx5 09/06- dark maroon/black stool SKIN: Jason 18- possible cellulitis on hand/arm CURRENT WTS: 64.7kg, BMI 25.3kg/m2, admit wt 64.9kg. Pt was supposed to have paracentesis 09/05 so wt may be high due to increased fluids. DIET: NPOx2 EST. NEEDS: cirrhosis, CKD Kcals: 1940-2265kcal/day (30-35kcal/kg) Pro: 65-80g/day (1.0-1.2g/kg) Fluids:~1650ml/day (25ml/kg) NUTRITION DIAGNOSIS: 1.) Inadequate oral intake related to altered gi function as evidence by need for NPO status and bowel rest NUTRITION INTERVENTION: 1.) Will continue to monitor NPO status. Recommend advance diet when medically appropriate 2.) If pt requires prolonged NPO status, recommend consider nutrition support MONITOR / EVAL: NPO, GI, labs, wt, POC, nutrition status. Will continue to monitor per high nutrition risk guidelines.
[2016-09-06] MEDS ORDERED: Albumin 25% 50 GM in IV Premix 1 EACH IV ONE ×3 (09:50→16:05)
--- NOTE | 2016-09-06 10:01 | PCM.PNMED ---
Subjective Date of Service Sep 06, 2016 Subjective Overnight: Vital signs stable throughout the night, fentanyl given for pain. No more reported episodes of emesis and her stool output has been diminishing. Total patient has received units of platelets 2 units of PRBCs Today: Patient awake and alert and lying in hospital bed in mild distress, states she has abdominal pain and is thirsty. Denies chest pain shortness of breath headache nausea vomiting. Exam Vital Signs Vital Sign - Last Date Time Temp Pulse Resp B/P Pulse Ox O2 Delivery O2 Flow Rate FiO2 09/06/16 09:45 36.7 72 16 144/67 09/06/16 04:30 Supplement Oxygen 09/06/16 04:30 100 2.00 Intake and Output 09/05/16 09/05/16 09/06/16 Cumulative From/Thru 15:00 23:00 07:00 09/05/16 12:22 - 09/06/16 06:46 Intake Total 853 ml 500 ml 1872 ml 3225 ml Output Total 700 ml 700 ml Balance 853 ml 500 ml 1172 ml 2525 ml Intake Oral 0 ml 0 ml 0 ml IV Total 853 ml 300 ml 1380 ml 2533 ml FFP 200 ml 200 ml Platelets 492 ml 492 ml Output Urine/Stool Mix 700 ml 700 ml # Bowel Movements 5 5 Exam General: Elderly female in mild to moderate distress lying in hospital bed. Appropriately interactive. Daughter at bedside. HEENT: Normocephalic, atraumatic. External ears without defect. Pupils equal, round, and reactive to light and accommodation. Pale sclera. Mucous membranes dry Neck: No jugular venous distension. Cardiovascular: Regular rate and rhythm with soft systolic murmur heard at left and right 2nd intercostal/sternal border Pulmonary: Clear to auscultation bilaterally with no crackles. Normal respiratory effort with no use of accessory muscles. Abdomen: Distended abdomen, soft palpation 4 quadrants. Mildly tender to palpation. Significant ascites Extremities: No clubbing, cyanosis. Lower extremity edema bilaterally to ankles. Right upper extremity wrist warm and tender to palpation. Skin: Normal temperature, turgor, and texture. Neurological: Cranial nerves grossly intact. Psychiatric: Normal mood and affect. Alert and oriented to person, place, and time. IVs and Medications Medications Reviewed: Medications were reviewed in detail Lab and Diagnostics Result Diagram: 09/06/16 0445 09/06/16 1687 X-Rays, CTs and MRIs . X-RAY PICC LINE PLACEMENT BY NURSE IMPRESSION: Tip of PICC lies at the cavoatrial junction. Dictated by: Mehdi Cummings M.D. on 09/05/2016 at 17:41 Cardiac Echo Impressions . Echocardiogram Report Interpretation Summary: The left ventricle is mildly dilated. Left ventricular ejection fraction is estimated to be 40%. Apical and anteroseptal akinesis, inferoapical dyskinesis, c/w prior LAD infarct The right ventricle is mildly dilated. There is a pacemaker lead in the right ventricle. The left atrium is severely dilated. There is mild to moderate mitral regurgitation. There is no hemodynamically significant valvular aortic stenosis. There is moderate tricuspid regurgitation. The right ventricular systolic pressure is estimated at 51 mmHg assuming a right atrial pressure of 8 mm Hg. There is mild pulmonic regurgitation. There are large-sized bilateral pleural effusions noted. Electronically signed by: Yung Shahid on Additional Diagnostics . US ABDOMEN DOPPLER, LIMITED IMPRESSION: 1. Cirrhotic appearance of the liver in no discrete focal hepatic abnormality is seen. 2. Enlarged portal vein otherwise normal hepatoportal Doppler assessment. 3. Splenomegaly suggesting portal hypertension. 4. Bilateral renal cortical thinning. 5. Moderate ascites. Dictated by: Frank Rosa RRA Interpreted: Edwin Biggs MD on 09/05/2016 at 15 :08 Esophagogastroduodenoscopy. IMPRESSION: 1. Large esophageal varices, status post band ligation x4. 2. Small esophageal varices. Sindhu Alvarado MD 09/05/16 7625 Assessment & Plan 80-year-old female past medical history of cryptogenic cirrhosis pancytopenia esophageal varices admitted for hematemesis and hematochezia. From ED PICC line placement followed by GI upper and lower endoscopy for source identification. Gastrointestinal bleed. Acute Present on admission. Ongoing - GI following - EGD showed Large esophageal varices, status post band ligation x4 - No NG or OG tube placement - Has already received 2 units PRBCs, at time of dictation receiving third unit - Continue to follow H&H, transfuse if hemoglobin less than 8 - Continue octreotide - Continue PPI Blood loss anemia. Present admission. Acute on chronic. Ongoing - Transfuse threshold as above Thrombocytopenia. Present on admission. Acute. Ongoing - Transfuse platelets, replete if less than 50,000 - Currently holding additional platelet transfusion secondary to GI Recs - Has already received 3 units platelets Abdominal ascites. Present on admission. Ongoing. Chronic. - At baseline receives bimonthly paracentesis taking approximately 8 L off each time - Scheduled to have paracentesis yesterday prior to admission - ICU following/ recommendation appreciated - Most likely get paracentesis today 09/06/2016 Hypertension. Chronic. Present admission. Ongoing - Hold home furosemide 40 mg by mouth daily -Paracentesis as a number for Hyperlipidemia. Chronic. Present admission. Ongoing - Hold home atorvastatin 20 mg by mouth daily Diabetes type II. Chronic. Present admission. Ongoing - Correctional scale insulin - A1c pending Hypothyroidism. Chronic. Present on admission. Ongoing - Hold home levothyroxine 200 g Chronic kidney disease. Present on admission. Ongoing - Avoid nephrotoxic agents - IV hydration 100 mL normal saline per hour after blood transfusion completion - Creatinine remains elevated 2.13 -> 2.1 - Continue to monitor Possible cellulitis of right wrist. Present on admission. Ongoing - Infectious disease following, recommendations are appreciated - CXR pending - Ceftriaxone 2 g daily Disposition: Patient remains CCU status being additional interventions to include paracentesis GI Prophylaxis: Proton Pump Inhibitor VTE Prophylaxis: SCDs Resuscitation Status: DNR/DNI:Do Not Resuscitate/Intubate Attending Statement The patient was seen and examined together with Dr. Santiago on 09/06/16 and I have added additional information to the note above. COLLETTE SANTIAGO DO Sep 06, 2016 10:01 Abigail Castanon DO September 15, 2016 19:12 COLLETTE SANTIAGO DO Sep 06, 2016 10:01
--- NOTE | 2016-09-06 10:12 | PCM.PNMED ---
Subjective Date of Service Sep 06, 2016 Subjective GASTROENTEROLOGY PROGRESS NOTE: The patient reports to feel better today. She still has moderate abdominal pain , especially in the epigastric area. She states that "it reynolds." She denies any nausea, vomiting, or hematemesis. She had a loose BM this morning, but it was neither bloody or black. Patient reports to have large-volume paracenteses every 2 weeks and is due for one. Nursing reports that patient received 2 units of PRBC last night and is currently having her 3rd unit. She also received 3 units of platelets, but her platelet continues to trend down. Platelet is at 25 this morning. Exam Vital Signs Vital Sign - Last Date Time Temp Pulse Resp B/P Pulse Ox O2 Delivery O2 Flow Rate FiO2 09/06/16 09:45 36.7 72 16 144/67 09/06/16 07:41 Supplement Oxygen 09/06/16 07:41 100 2.00 Intake and Output 09/05/16 09/05/16 09/06/16 Cumulative From/Thru 15:00 23:00 07:00 09/05/16 12:22 - 09/06/16 06:46 Intake Total 853 ml 500 ml 1872 ml 3225 ml Output Total 700 ml 700 ml Balance 853 ml 500 ml 1172 ml 2525 ml Intake Oral 0 ml 0 ml 0 ml IV Total 853 ml 300 ml 1380 ml 2533 ml FFP 200 ml 200 ml Platelets 492 ml 492 ml Output Urine/Stool Mix 700 ml 700 ml # Bowel Movements 5 5 Exam General: Alert and oriented. Elderly female lying on the bed in mild discomfort. Appropriately interactive. Pleasant and cooperative. HEENT: NCAT. External ears without defect. EOMI. Sclera anicteric, but pale. Oral mucous membranes dry Respiratory: Clear to auscultation bilaterally with no crackles. Normal respiratory effort with no use of accessory muscles. Cardiovascular: Regular rate and rhythm. II/ systolic murmur noted. Abdomen: Soft, Distended abdomen. Mild tenderness to palpation in the epigastric area. No guarding or rebound tenderness. Significant ascites with fluid wave. Extremities: Edema in bilateral ankles. No clubbing, cyanosis. Skin: Normal temperature, turgor, and texture. No jaundice. Neurological: Normal speech. IVs and Medications Medications Reviewed: Medications were reviewed in detail Lab and Diagnostics Result Diagram: 09/06/16 0445 09/06/16 0445 X-Rays, CTs and MRIs . X-RAY PICC LINE PLACEMENT BY NURSE IMPRESSION: Tip of PICC lies at the cavoatrial junction. Dictated by: Mehdi Cummings M.D. on 09/05/2016 at 17:41 Cardiac Echo Impressions . Echocardiogram Report Interpretation Summary: The left ventricle is mildly dilated. Left ventricular ejection fraction is estimated to be 40%. Apical and anteroseptal akinesis, inferoapical dyskinesis, c/w prior LAD infarct The right ventricle is mildly dilated. There is a pacemaker lead in the right ventricle. The left atrium is severely dilated. There is mild to moderate mitral regurgitation. There is no hemodynamically significant valvular aortic stenosis. There is moderate tricuspid regurgitation. The right ventricular systolic pressure is estimated at 51 mmHg assuming a right atrial pressure of 8 mm Hg. There is mild pulmonic regurgitation. There are large-sized bilateral pleural effusions noted. Electronically signed by: Yung Shahid on Additional Diagnostics . US ABDOMEN DOPPLER, LIMITED IMPRESSION: 1. Cirrhotic appearance of the liver in no discrete focal hepatic abnormality is seen. 2. Enlarged portal vein otherwise normal hepatoportal Doppler assessment. 3. Splenomegaly suggesting portal hypertension. 4. Bilateral renal cortical thinning. 5. Moderate ascites. Dictated by: Frank Rosa [facility] Interpreted: Edwin Biggs MD on 09/05/2016 at 15 :08 Esophagogastroduodenoscopy. IMPRESSION: 1. Large esophageal varices, status post band ligation x4. 2. Small esophageal varices. Sindhu Alvarado MD 09/05/16 4580 Assessment & Plan This is a 80-year-old woman with cryptogenic cirrhosis, esophageal varices and ascites with frequent paracenteses presented with hematemesis and hematochezia. Her acute normocytic anemia is likely secondary to upper GI bleed from the esophageal varices s/p banding x 4. She was also found to have significant thrombocytopenia of 25 that required platelet transfusion. Her MELD score is 16. s/p EGD on 09/05/2016 IMPRESSION: 1. Large esophageal varices, status post band ligation x4. 2. Small esophageal varices. RECOMMENDATIONS: - Advance to clear liquid as the patient has no overt signs of GI bleed ( hematemesis, hematochezia, or melena) - We recommend AGAINST NG or OG tube placement. - Continue to monitor serial hematologic parameter testing. We will defer the transfusion plan to the primary care team, but her hemoglobin goal should be in the 7-9 range. - Consider transfuse 1-2 unites of platelet to maintain a platelet level of greater than 50,000. - We would recommend the patient to have a diagnostic/therapeutic paracentesis by radiology today. - Continue empiric antibiotic treatment for SBP with Ceftriaxone. - Continue octreotide ggt for a total of 72 hours (started on 09/05 at 2130). - Continue Protonix 40mg IV daily. Can transition to Protonix PO once the patient tolerates PO intake. - Depending on the patient's clinical progress, we will consider additional banding in a week or two. Thank you for allowing us to participate in this patient's care. We will continue to follow. Please do not hesitate to contact us for any question or concern. Pain Evaluation: Adequate Pain Control GI Prophylaxis: Proton Pump Inhibitor VTE Prophylaxis: SCDs Resuscitation Status: DNR/DNI:Do Not Resuscitate/Intubate Attending Statement pt seen and examined with resident physician agree with her history and physical she reports her stools are melenic but less in volume. Her H/H has trended a down a bit. She under went large volume paracentesis aprrox 4.1 liters was removed. She is written for 50gm of albumin by the primary team. she states she is hungry. recommend cont octretide for total of 72 hours cont PPI daily can switch to PO repeat paracentesis as needed. Ben Soriano DO Sep 06, 2016 10:12 Sindhu Alvarado MD Sep 06, 2016 22:35 8. Possible cellulitis. Present on admission. Ongoing - Awaiting med rec - Infectious workup pending - Obtain previous records - Both patient and patient's daughter state DNR/DNI wishes however these were suspended for endoscopy procedure today Patient Status: Patient was admitted under inpatient status with expected length of stay greater than two midnights due to severity of presenting symptoms , risk of adverse event, and complexity of treatment plan. Keep n.p.o. 2. GI Prophylaxis: Proton Pump Inhibitor VTE Prophylaxis: SCDs Resuscitation Status: DNR/DNI:Do Not Resuscitate/Intubate SorianoBen recinos DO Sep 06, 2016 10:12
--- NOTE | 2016-09-06 10:27 | PCM.CHPMED ---
Subjective Date of Service: Sep 06, 2016 Provider requesting consult: COLLETTE VAZQUEZ DO Primary Physician: Admitting Physician: Abigail Castanon DO Primary Care Physician: Liang Smith MD Attending Physician: Abigail Castanon DO Chief Complaint: Chief Complaint: Pulmonology/Critical Care consultation Patient is a 80yof with MHx of DM II, hx obesity, cryptogenic liver cirrhosis with multiple sequela including esophageal varices and afib, CKD, plus hypothyroidism had presented with hematemesis and hematochezia (09/05) found have normocytic anemic likely 2nd to GI bleed. Due to the increasing complexity of this care, Primary care team has request Pulmonology/Critical Care consultation. History of Present Illness: Patient started to vomit blood yesterday AM while while preparing for a bi- weekly therapeutic paracentesis at her Oncology office. Thereafter, she also reported marooned color stool and was transferred to ED for evaluation. Blood work demonstrated normocytic anemia. All the while, US ultrasound confirmed nodular liver with portal hypertension with vein diameter dilated 18mm, enlarged spleen, and moderate ascites. Upper endoscopy performed same day showed esophageal varices, however unrevealing in the fact that there were no blood in stomach. Patient received a total of 3 pRBC and 3 packs of 6units platelets and transferred to CCU for further monitoring. Patient denies any recent hx of hematemesis or hematochezia, though does admits to hemorrhoids in the past. No hx of ETOH abuse, she has DM II for over 15yrs and was obese a few years back. Denies hx of SBP. Review of records showed pancytopenic since 2011. This includes WBC mid-2 -3's thousands, Hgb 9.0's, and Plt low-40's. She is currently on Promacta. She recently had 2 pRBC transfusion (08/24) due to symptomatic anemia. Unrelated, she was recently started on antibiotic for a Right hand/wrist infection. Right hand swelling/pain started about 6wks ago when she had IV line placed for paracentesis. She has received 3 courses of antibiotics without improvement, most recent doxycycline. Right hand more swollen, increasing pain. Movement exacerbate pain. Review of system is negative for any CP, SOB, fever, chills. She admits to abdominal discomfort, burning in the epigastric. Otherwise, no nausea, vomiting , no diarrhea at this time. 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 Chronic kidney disease CHF EF 40%, [place]- LAD PUD HTN Hypothyroidism Bedside Blood Glucose: 120 Surgical History Hysterectomy Pacemaker and defibrillator 2006 Home Medications Lorazepam 0.5 mg by mouth daily when necessary Atorvastatin 20 mg by mouth daily Cyclobenzaprine 10 mg by mouth daily when necessary Doxycycline 100 mg by mouth twice a day Promacta 25 mg by mouth Monday Ferrous sulfate 325 mg by mouth daily Folic acid 0.4 mg by mouth daily Furosemide 40 mg by mouth daily Insulin Lantus 30-50 units every morning Lactulose 15 mL by mouth twice a day when necessary for constipation levothyroxine 200 MCG daily Omeprazole 20 mg by mouth daily Oxycodone 2.5 mg by mouth twice a day as needed Allergies: Coded Allergies: No Known Allergies (Verified , 09/05/16) Social History Hx Alcohol Use: NoHx Substance Use: No Smoking Status: Unknown if Ever Smoker Exam Vital Signs Vital Sign - Last Date Time Temp Pulse Resp B/P Pulse Ox O2 Delivery O2 Flow Rate FiO2 09/06/16 09:45 36.7 72 16 144/67 09/06/16 07:41 Supplement Oxygen 09/06/16 07:41 100 2.00 Intake and Output 09/05/16 09/05/16 09/06/16 Cumulative From/Thru 15:00 23:00 07:00 09/05/16 12:22 - 09/06/16 06:46 Intake Total 853 ml 500 ml 1872 ml 3225 ml Output Total 700 ml 700 ml Balance 853 ml 500 ml 1172 ml 2525 ml Intake Oral 0 ml 0 ml 0 ml IV Total 853 ml 300 ml 1380 ml 2533 ml FFP 200 ml 200 ml Platelets 492 ml 492 ml Output Urine/Stool Mix 700 ml 700 ml # Bowel Movements 5 5 General: Alert, Oriented X3, Cooperative, Mild Distress (right hand pain, thin frail) Head: Normal Eyes: PERRLA, EOMI, Scleral Anicteric Mouth: Mucous Membr Moist/Noble, Other (no signs of gingival bleeding) Neck: Supple, Other (no JVD) Chest & Lungs: Clear to auscultation & percussion, No adventitious breath sounds Cardiovascular: Exam Unremarkable, Regular Rate/Rhythm, Normal S1, Normal S2, No Murmurs/Rubs/Gallops Abdomen: Distended, Normoactive bowel tones, Other (distended, flank dullness, positive fluid wave,) Genitourinary: Other (deferred) Extremities: Other (mild edema in the lower legs, right hand/wrist warm, tender with ROM) Neurological: Grossly Neurologically Intact, Cranial Nerves 2-12 Intact, Other (moving equally in 4 extremities) Lab and Diagnostics Result Diagram: 09/06/1644409/06/16444 Assessment & Plan Assessment Patient is a 80yof with MHx of DM II, hx obesity, cryptogenic liver cirrhosis with multiple sequela including esophageal varices and afib, CKD, plus hypothyroidism had presented with hematemesis and hematochezia (09/05) found have normocytic anemic likely 2nd to GI bleed. Patient hemodynamically stable at this juncture. Vitals unremarkable, H&H stable status post PRBC and platelet transfusion, no signs of new bleeding. Thus, no need for further platelet transfusion. Patient is chronically thrombocytopenic in the low 30s-40 's. Her spleen is enlarged, likely has significant splenic sequestration. Still, bland for for esophageal bleeding given the low platelets with additional concerns for hepatorenal syndrome. She maintains good urine output and creatinine remains 2.1. We will move forward with diagnostic/therapeutic paracentesis this afternoon. Will replace albumin at 6 g/per liter removed. We will continue octreotide, possibly adding nadolol for portal hypertension and prevent limit ascites of ascetic fluid with spironolactone and furosemide should patient continue to be hemodynamically stable. Will limit her sodium intake to no more than 2 g per day. Unrelated, strong concern of right hand swelling, possible septic joint secondary to IV site infection 6 weeks ago. No signs of sepsis syndrome, though patient is pancytopenic and may immune response may present atypically. Blood culture have been negative for the past 24 hours, MRSA negative as well. Problem List # Cryptogenic liver cirrhosis-MELD score16. # Acute normocytic anemia # Possible gastrointestinal bleed # Pancytopenia # Portal hypertension with esophageal varices and refractory ascites # Right hand swelling PLAN: - Diagnostic/therapeutic paracentesis with albumin replacement - Hand/wrist x-ray for possible fracture versus soft tissue infection - Consult with orthopedics - Continue ceftriaxone for SBP prophylaxis and just infection - Trend H&H - Continue octreotide - Limit dietary salt intake to less than 2 g per day - Hold off DVT prophylaxis in the setting of significant thrombocytopenia and GI bleeding, continue GI prophylaxis Total time spent 1.5 hours Critical Care Attending Ms Wynne is a remarkable and unfortunate 80yo woman with longstanding (dx in 2008!!) 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 She received transfusion support with RBCs and platelets as well as urgent EGD with banding of esophageal varices. She has done well overall with stable hemodynamics and no worsening of her CKD. Despite the mcfp nature of her complicated cirrhosis, I can find no record of her consideration of a TIPS to better manage her ascites and variceal bleeding and thereby minimize her need for recurrent hospitalization. It is possible that she has clear portal venous thrombosis (there is chart mention of remote PV thrombus) which would preclude TIPS. We will discuss this with GI (? evaluated as an outpatient?) and either document her contraindication or proceed with hepatic imaging. We will continue ceftriaxone, octreotide and PPI for 72hours, as well as NPO status for another 24hours in the aftermath of her acute variceal bleeding. She was scheduled for an outpatient paracentesis yesterday. In the setting of her acute decompensation, we will plan to remove ascites judiciously today with aggressive albumin support. Pt also with swollen, warm, and tender R wrist. She has pain with flexion and tenderness with palpation over the ulnar aspect of the R wrist. She apparently has been treated several times over the past 7weeks with PO abx for localized cellulitis with a waxing and waning response. I am concerned about possible joint space infection, so we will image the wrist and consult Orthopedics to assist in the evaluation and management of this R wrist. Problems: GI Prophylaxis: Proton Pump Inhibitor VTE Prophylaxis: SCDs Resuscitation Status: DNR/DNI:Do Not Resuscitate/Intubate Attending Statement The patient was seen and examined together with Dr. Pantoja today and I have added additional information to the note above. Steve Pantoja DO Sep 06, 2016 10:27 Partha Metz MD Sep 06, 2016 17:03
[2016-09-06] MEDS ORDERED: Glucose 40% Oral Gel 15 Gm Tube PO PRN (10:45)
--- NOTE | 2016-09-06 11:14 | NUR ---
Social Work Note: Initial Assessment Data& Assessment: EMR reviewed. SW met with pt and pt daughter at bedside to discuss discharge planning, SW role explained. Vi Wynne is a 80 year old female admitted on 09/05/2016 for GI bleed. Pt has [facility] and sees Liang Smith MD for primary care. Pt is also followed by Dr. Barron at the oncology clinic. Pt lives in [place] with her daughter in an apartment with elevator access. Pt uses a cane at baseline for ambulation. Pt is independent at baseline with ADL's. Pt daughter transports her to any appointments, pt does not drive. Pt does not have SNF hx but has had [facility] in the past. Pt does not have LTC insurance or VA benefits. Pt and pt daughter provided with DPOA/Advance Directive paperwork to review and complete when possible. Pt and pt daughter denies any other needs at this time. Pt is requiring transfusions and on a dilt drip at this time per RN in morning rounds. Pt is CCU status. SW to continue to follow Plan: Anticipated discharge home via POV when medically ready. SW to continue to follow for PT and RN needs as pt medically progresses. SW to continue to follow. VELIA Capps Addendum: 09/06/16 at 1119 by JOSE A WOOD Amended: Links added.
[2016-09-06] MEDS: Insulin LISPRO 300 Unit/3 mL Inj SUBQ SCH ×3 (12:00→21:37)
--- NOTE | 2016-09-06 12:11 | DRSVH ---
PROCEDURE: X-RAY RIGHT WRIST COMPLETE, MINIMUM THREE VIEWS ([id number]) INDICATIONS: wrist/hand pain/cellulitis? TECHNIQUE: 3 views of the wrist were acquired. COMPARISON: ALYSSA Feliciano, WRIST COMP MIN 3VW (RT), 09/25/2012, 14:41. FINDINGS: Bones: No fractures or dislocations. No suspicious bony lesions. Osteoarthritic changes redemonstr ated. Cortical irregularity and lucency involves the radial aspect of the distal pole of the scaphoi d. Scaphoid view: No fracture identified. Soft tissues: No suspicious soft tissue calcifications. Chondrocalcinosis is present. IMPRESSION: 1. Osteoarthritic changes present. 2. Cortical irregularity and lucency involving the distal pole of the scaphoid and early developing o steomyelitis cannot entirely be excluded. Recommend clinical correlation and if indicated MRI could be performed for further assessment. 3. Chondrocalcinosis. Differential diagnosis includes but is not limited to hemochromatosis, hyperpa rathyroidism and CPPD. 4. Diffuse osteopenia. Dictated by: Frank Rosa [facility] Interpreted: Magdalene Bello MD on 09/06/2016 at 12:06 Transcribed by: MANJU on 09/06/2016 at 12:10 Approved by: Magdalene Bello MD, PhD on 09/06/2016 at 13:14
[2016-09-06 13:13] LABS: Mean Corpuscular Hemoglobin 28.2 pg (27.0-35.0); Mean Corpuscular Volume 91.6 fL (81-100)
[2016-09-06 13:15] LABS: INR 1.37 ratio
--- NOTE | 2016-09-06 15:23 | NUR ---
Paracentesis with U/S guidance Pt is undergoing paracentesis at this time. Pt was complaining of abdominal pain and 25mcg of fentanyl given for back pain. VS are stable, HR 74, BP 133/60, sats 100% on 1l.
--- NOTE | 2016-09-06 16:13 | PROG NOTE ---
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 She takes Promacta 20 mg by mouth each Monday, Monday and Monday. Her cirrhosis is felt to be cryptogenic, with negative viral studies and no evidence of hemochromatosis or iron overload. Bone marrow studies for myelofibrosis or myelodysplastic syndrome were negative. She has had persistent ascites, requiring paracentesis of 5-8 L of fluid every two weeks. She receives platelet transfusions prior to her paracenteses on most occasions. While being evaluated on [facility] yesterday, she developed acute hematemesis of a large volume of red bloody emesis. She was immediately transferred to the emergency department, where she underwent limited Doppler ultrasound of the abdomen. This showed cirrhotic appearance of the liver with no discrete focal hepatic abnormality. She had an enlarged portal vein but otherwise normal hepatoportal Doppler assessment. There was splenomegaly suggesting portal hypertension. She had moderate ascites. She was found to be anemic with a hemoglobin of 7.5 with hematocrit of 24.8%. Dr. Alvarado from Gastroenterology evaluated the patient with upper endoscopy due to concerns about variceal bleeding. He found three columns of large varices arising from just above the GE junction extending to approximately 28 cm. Four varices were banded successfully. She is n.p.o. and is on octreotide for the next 72 hours as well as a daily PPI. He recommended platelet transfusion for platelet levels less than 50,000. She was transfused overnight with 2 units of packed red blood cells. She is feeling a bit better this morning. OBJECTIVE: Vitals: T 36.8, P 74, R 16, BP 145/68. HEENT: Conjunctivae pale. Mucous membranes moist. Chest: Decreased at the bases. Cardiac examination: Regular rate and rhythm with normal S1, S2. Abdomen: Moderately distended with ascites. Liver edge is firm about three fingerbreadths below the right costal margin. Extremities: Bilateral easily reducible inguinal hernias. 2+ lower extremity edema. 1+ distal pulses. LABORATORIES: WBC 2.5, hemoglobin 7.0, hematocrit 23%, MCV 93, platelets 25,000. BUN 60, creatinine 2.1, glucose 132. AST 14, ALT 8, alkaline phosphatase 74. ASSESSMENT AND PLAN: 1. Symptomatic anemia from esophageal varices bleeding: The patient had hematemesis/hematochezia while being evaluated for paracentesis yesterday afternoon. Hematocrit this morning is approximately 23%, and the patient is scheduled to receive two units packed red blood cells. In addition, strongly consider transfusion with 1-2 units of platelets to maintain a platelet level greater than 50,000. Dr. Alvarado performed upper endoscopy, finding large esophageal varices, four of which were banded. Another repeat procedure may be attempted later in the week, or within the next couple weeks, with additional banding at that time. Continual serial hematologic parameter testing, with additional blood products as indicated. 2. Pancytopenia in the setting of cryptogenic cirrhosis with splenomegaly and esophageal varices, exacerbated by renal insufficiency: Continue Promacta. Increased Promacta dosing is contraindicated because of increased risk of recurrent portal vein thrombosis.
--- NOTE | 2016-09-06 16:32 | PCM.PROC ---
Procedure Note Date of Service: Sep 06, 2016 Pre Procedure Diagnosis: Liver cirrhosis, portal hypertension, ascites Post Procedure Diagnosis: Liver cirrhosis, portal hypertension, ascites Procedure: Therapeutic and diagnostic paracentesis Provider and Regional Facilities Manager: Steve Pantoja DO, PGY2 MD Magdalene Delacruz MD, PhD [facility] Indication for Procedure: Symptomatic Ascites Findings: Patient positioned supine. Abdomen examined with ultrasound for appropriate site placement (LLQ). Site marked and prepared with swabs of betadine. Site draped with sterile dressing. Wheel of lidocaine placed. Lidocaine then introduced deep to the peritoneum. Skin punctured with a 16 gauge size needle. Paracentesis needle was placed through the skin into the abdominal cavity, aspirate with flashback, yellow/blood tinged fluid. Via Seldinger technique, catheter advanced forward and paracentesis needle withdrawal. The catheter was withdrawn and the site cleaned and bandaged with gauze and tape. Samples were sent to the lab for analysis. Blood tinged colored fluid was removed Amount of fluid removed: 4 L Estimated Blood Loss: minimal Complications: The patient tolerated the procedure well without complications Procedure was done under supervision of Drs. Magdalene Bello MD, PhD and Partha Metz MD. Attending Statement Patient interviewed and consent verified prior to procedure. I directly supervised Dr Pantoja in the performance of the procedure. The patient tolerated the removal of 4L of orange slightly cloudy ascites fluid well and without any hemodynamic embarrassment. Fluid was sent for dxic studies. Pt is receiving albumin support post-procedure and will be monitored closely overnight. Steve Pantoja DO Sep 06, 2016 16:32 Partha Metz MD Sep 06, 2016 17:08
--- NOTE | 2016-09-06 16:55 | NUR ---
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 met pt's dtr in ER.
--- NOTE | 2016-09-06 16:57 | DRSVH ---
PROCEDURE: US GUIDED PARACENTESIS, PRIMARY ([id number]) INDICATIONS: paracenthesis TECHNIQUE: The indications, alternatives, benefits, risks, and complications of the procedure were explained to the patient. Written informed consent was obtained and placed in the chart. The abdomen and pelvis were examined sonographically, and an appropriate site was chosen for paracentesis. The skin was pre pared and draped in the usual sterile fashion, and 1% lidocaine was infiltrated from the skin down th rough the peritoneal surface. A 19-gauge catheter-covered needle was then introduced into the perito keo space, the catheter was advanced and the needle was withdrawn, and thereafter peritoneal fluid w as withdrawn. The catheter was then removed and a dressing was applied. The fluid was discarded if the clinician did not order diagnostic testing of the fluid. COMPARISON: None. FINDINGS: Access site: Right lower quadrant Needle: One-Step centesis catheter with introducer needle. Fluid volume and description: 4.1 L slightly bloody tinged peritoneal fluid. Fluid sent for diagnostic testing: Fluid sent for cytology, multiple chemistry panels and therapeuti c drainage. Medications: 1% lidocaine for local anaesthesia. Complications: None. IMPRESSION: Successful ultrasound-guided paracentesis. Dictated by: Frank NAVARRO Interpreted: Magdalene Bello MD on 09/06/2016 at 16:55 Transcribed by: MANJU on 09/06/2016 at 16:56 Approved by: Magdalene Bello MD, PhD on 09/06/2016 at 18:48
--- NOTE | 2016-09-06 17:00 | CONS ---
[address] [address] CONSULTATION REPORT PATIENT: FAMILIA SHELLEY : 1935 MR#: [id number] ADMIT: 09/05/2016 JOB ID: [id number] DATE OF SERVICE: 09/06/2016 SURGICAL CONSULTATION: I thank Dr. Pacheco for this timely consult. REASON FOR CONSULTATION: Possible right septic wrist and/or osteomyelitis. HISTORY OF PRESENT ILLNESS: The patient is an extremely, unfortunate, 80-year-old woman who suffers from a wide variety of serious and life-threatening medical problems including end-stage liver disease with pancytopenia, varices and massive ascites requiring large-volume paracentesis every two weeks. Additionally, she has renal insufficiency, diabetes and congestive heart failure. She was admitted on this occasion, yesterday on September 05, when she presented for a large-volume paracentesis which she does every two weeks, but was noted to have marvin hematemesis and a burning esophageal pain. The patient was quickly taken to the ED where she required a central line to be placed. She was then evaluated and scheduled for emergent endoscopy because of the concern about significant upper GI bleeding. Just prior to these events, the patient was interviewed and reported she had no fevers, chills, or sweats. She had not been feeling especially bad nor had she had any increased shortness of breath just prior to the scheduled paracentesis. She did note that she had some nausea though with vomiting and increased abdominal distention which was somewhat painful. There were no new pulmonary symptoms such as cough, shortness of breath or chest pain. Following her admission yesterday, the patient underwent endoscopy by Dr. Hubbard and he found large esophageal varices some which were bleeding and banded the bleeding varices. That procedure was done yesterday evening. The patient also received transfusions of red cells and platelets during the night. I saw the patient this morning, having been asked specifically about her wrist. She told me that in general she has not had fevers, chills or sweats. She notes that several weeks ago an IV was placed just above the wrist on the radial side. This became painful and inflamed and she was treated with oral antibiotics which apparently included both Bactrim and tetracycline-type drug. There was not enough improvement for her taste and the wrist actually became progressively more swollen and somewhat tender. She now has a restricted range of motion with the right wrist and finds it constantly somewhat painful though there is no overt redness or any drainage at all from the wrist, and she is able to use that hand to some degree but not nearly as much as she would ordinarily. Aside from that though, she has not had fevers, chills or sweats. She denies any new cough, shortness of breath, chest pain. She has had progressive abdominal distention, of course, and the GI bleeding yesterday. She has not had issues with other joints nor does she have any history of gout or pseudogout. PAST MEDICAL HISTORY: 1. End-stage liver disease. a. Pancytopenia. b. Splenomegaly. c. Recurrent massive ascites. d. Variceal bleeding. 2. Chronic renal insufficiency with creatinine right now around 2. 3. Diabetes mellitus. 4. Organic heart disease. a. AFib. b. Congestive heart failure. 5. Hypertension. SOCIAL HISTORY: The patient is a nonsmoker, nondrinker. FAMILY HISTORY: Negative for tuberculosis in 1st degree relatives. REVIEW OF SYSTEMS: Was done, though it was a bit difficult as the patient is somewhat lethargic when I saw her this morning. In any event, she denies ongoing headache, no acute change in vision, no sore throat. She has no particular shortness of breath or cough. No chest pain. She has had progressive abdominal distention which requires every two week paracentesis and she just had hematemesis yesterday. She reports no recent diarrhea, and no significant pain in the abdomen. No significant genitourinary complaints such as dysuria. She does note she is quite weak and this has been a progressive situation. Remainder of the review of systems negative. PHYSICAL EXAMINATION: Reveals an afebrile woman and she has been afebrile since admission some 24 hours ago. Temperature 36.7, at this point, pulse 70, respiratory rate 16, blood pressure 134/62. Examination of the mental status reveals it to be quite clear. She is awake and alert today. Head without trauma. Eyes with pale conjunctivae. Oral cavity without thrush or pharyngitis. Neck is without cervical adenopathy. There is no significant JVD. Lungs with decreased breath sounds at the bases. Cardiac tones: Regular rate and rhythm. The patient has a pacer in the left upper chest which is nontender. The patient's abdomen is distended with ascites and a palpable spleen is noted, though there is no focal tenderness in the abdomen. She has no West catheter, no suprapubic abnormality. Extremities: All somewhat wasted, but she has intact strength in all four. No evidence of cellulitis no evidence of skin breakdown. Extremities: She has reasonable peripheral pulses. No focal neurologic deficits are noted. No synovitis except the patient's right wrist. The patient's right wrist is diffusely swollen and has sort of a woody feel to it. It is mildly tender and warm to deep palpation but there is no erythema. This tenderness and swelling seems worse around the radial aspect. LABORATORIES: Labs include white count 2600, hematocrit 28, platelet count 28,000. She is always pancytopenic, however. Creatinine 2.1. LFTs normal. Procalcitonin 0.22. INR is 1.37. Nasal MRSA PCR negative. IMAGING: Of the wrist was just done as Dr. Pacheco and I discussed ordering that this morning. It shows osteoarthritic changes in the wrist with cortical irregularity and lucency involving the distal scaphoid possibly consistent with early osteo. Chondrocalcinosis was also seen. An abdominal ultrasound showed cirrhotic liver and large portal vein, splenomegaly, moderate ascites and bilateral renal cortical thinning. IMPRESSION: This is an unfortunate woman with a collection of severe medical problems related to end-stage liver disease, chronic renal insufficiency and congestive heart failure. She was admitted this time with hematemesis which was discovered just before she was about to have her regular every two week paracentesis. The ID question here is the nature of what is going on with the right wrist. I am concerned that she has a right septic wrist with perhaps a low virulence organism and that this has been going on for several weeks. If, in fact, this process started with an IV placed in the right wrist and this is likely a Staph organism though Shaina or enterococci could also produce a similar picture. It is also possible that this is a mycobacteria as these are common causes of septic joints in people with end-stage liver disease. Fungal possibilities are also not excluded in this immunosuppressed woman. RECOMMENDATIONS: 1. The patient is currently receiving ceftriaxone which is a double duty antibiotic here serving as prophylaxis against SBP in someone who just came in with a GI bleed and also providing coverage Methicillin-sensitive Staphylococcus aureus and strep which could be present in the joint. I think this is reasonable, but we need to move ahead with an ortho hand consult so we get their opinion about the nature of what may be a septic joint and/or osteomyelitis of the right wrist. In terms of management the best thing here would be to get an aspirin and possibly of the septic joint and send it for appropriate studies. Continue with ceftriaxone 2 g a day. 2. I would ask Ortho Hand to come and evaluate and potentially tap this wrist. 3. If fluid is obtained from the wrist, it should be sent for routine, AFB and fungal culture as well as routine AFB and fungal PCR. I realize this is a big expenditure of money, but I think this woman is a risk for all three of those, namely the bacterial fungal and mycobacterial organisms, which could easily produce a septic right wrist and/or osteo in this immunosuppressed woman. This case discussed in person with Dr. Pacheco at the bedside this morning and again this afternoon with the house staff at the bedside.
--- NOTE | 2016-09-06 17:18 | NUR ---
P:Hemodynamics, Resp, Nutrition, Neuro, Social I,E: Pt has had no emesis today, no bright red blood in her stools, just some small amounts of liquid dark/black stool. SBP ranges 120' to 130's on average today. Pt has had trouble emptying her bladder fully today, but is having adequate UOP. She tolerated the paracentesis well, and 4l of fluid was drained from her abdomen today. Her BP was stable throughout all of this also. She received albumin after procedures. Site is CDI. Pt also received 2 units of RBC's today without any evidence of reaction. Pt is on 1l O2 and sats have been 100%. No cough, no dyspnea. Pt remains NPO per GI. Pt is A&O X 3, coop and pleasant. Pt's daughter was in the room with pt most of the day and offers great support.
[2016-09-06 17:27] LABS: BFWBC 8 /mm3
[2016-09-06 17:28] LABS: MONOCYTES,BODY FLUID 58 %
[2016-09-06 17:29] LABS: OTHER CELLS,BODY FLUID 0
[2016-09-06] MEDS: 0.9% Sodium Chloride 1,000 ML IV SCH (17:35)
--- NOTE | 2016-09-06 19:10 | PCM.CONORT ---
Subjective Surgeon Admitting Provider:Abigail Castanon DO Attending Provider:Abigail Castanon DO Primary Care Physician:Liang Smith MD Other Provider: Reason for Consultation: right wrist pain, r/o osteomyelitis of the scaphoid Allergy Allergies: Coded Allergies: No Known Allergies (Verified , 09/05/16) Medications Hypertension Medication: Yes Home Meds Incl Beta Blockers: No Alprazolam (Alprazolam) 0.5 Mg Tablet 0.5 MG PO DAILY PRN PRN For Anxiety ( Reported) Last Taken: Unknown Dose on Unknown Date & Time Atorvastatin Calcium ( Atorvastatin Calcium) 20 Mg Tablet 20 MG PO DAILY (Reported) Last Taken: Unknown Dose on 09/04/16 Cyclobenzaprine (Cyclobenzaprine) 10 Mg Tablet 10 MG PO DAILY PRN PRN For Pain (Reported) Last Taken: Unknown Dose on Unknown Date & Time Doxycycline Hyclate ( Doxycycline Hyclate) 100 Mg Capsule 100 MG PO BID (Reported) Last Taken: Unknown Dose on 09/04/16 Eltrombopag Olamine (Promacta) 25 Mg Tablet 25 MG PO mon,wed, mon (Reported) M,W,F Last Taken: Unknown Dose on 09/02/16 Ferrous Sulfate (Ferrous Sulfate) 325 Mg Tablet 325 MG PO DAILY (Reported) Last Taken: Unknown Dose on 09/04/16 Folic Acid (Folic Acid) 0.4 Mg Tablet 0.4 MG PO DAILY (Reported) Last Taken: Unknown Dose on 09/04/16 Furosemide (Furosemide) 40 Mg Tablet 40 MG PO DAILY (Reported) Last Taken: Unknown Dose on 09/04/16 Insulin Glargine (Lantus U100 Insulin Vial) 100 Unit/Ml Vial 30-50 UNIT SUBQ QAM (Reported) Last Taken: Unknown Dose on 09/04/16 Lactulose (Lactulose) 10 Gm/15 Ml Solution 15 ML PO BID PRN PRN For Constipation (Reported) Last Taken: Unknown Dose on Unknown Date & Time Levothyroxine (Levothyroxine ) 200 Mcg Tablet 200 MCG PO DAILY (Reported) Last Taken: Unknown Dose on 09/04/16 Omeprazole Magnesium (Prilosec Otc) 20 Mg Tablet.dr 20 MG PO DAILY (Reported) Last Taken: Unknown Dose on 09/04/16 oxyCODONE (oxyCODONE) 5 Mg Tablet 2.5 MG PO BID (Reported) Last Taken: Unknown Dose on 09/04/16 Discontinued Medications ([Iron 65 Mg]) 130 MG PO ESAU (Reported) Budesonide EC (Budesonide EC) 3 Mg Capdr...er 6 MG PO DAILY (Reported) Folic Acid (Folic Acid) 0.8 Mg Tablet 0.8 MG PO DAILY (Reported) Furosemide (Furosemide) 20 Mg Tab 20 MG PO DAILY (Reported) Glipizide (Glipizide) 5 Mg Tablet 5 MG PO DAILY (Reported) Hydrocodone-Acetaminophen 5-325 mg (Hydrocodone-Acetaminophen 5-325 mg) 1 Each Tablet 1 TABLET PO Q4H PRN PRN For Pain (Reported) Insulin NPL/Insulin Lispro (HumaLOG 75/25 U100 Insulin Kwikpen) 100 Unit/1 Ml Insuln.pen 15 UNIT SUBQ AM (Reported) Isosorbide DN (Isosorbide DN) 30 Mg Tablet 30 MG PO DAILY (Reported) Levothyroxine (Levothyroxine) 150 Mcg Tablet 150 MCG PO DAILY (Reported) Sodium Bicarbonate (Sodium Bicarbonate) 650 Mg Tablet 1,300 MG PO DAILY ( Reported) Spironolactone (Spironolactone) 50 Mg Tablet 50 MG PO DAILY (Reported) History History of ENT Problems?: No HEENT History: Denies:: Abnormal Airway Cataracts Difficult Intubation Dysphagia Glaucoma Hearing Problem Sinus Problem TMJ Denture Type: Full- Upper Full- Lower Teeth Condition: Within Normal Limits Hx of Heart Problems?: Yes Cardiovascular History: Positive for:: AICD Congestive Heart Failure Heart Murmur Irregular Heartbeat (afib) Pacemaker Valvular Heart Disease Denies:: Cardiac Surgery Chest Pain Edema Hypertension Thrombophlebitis Hx of Respiratory Problem?: No Respiratory History: Denies:: Tuberculosis Hx Neurologic Problems?: Yes Neurological History: Positive for:: Dizziness Denies:: Alzheimer's Disease CVA Headaches Parkinson's Disease Seizures Hx of GI Problems?: Yes Hx of Problems?: Yes Genitourinary History: Denies:: HX of Hemodialysis Kidney Stones Urinary Tract Infection HX of Peritoneal Dialysis: No Female Hx: Denies:: Currently Endometriosis Pelvic Inflammatory Problems with Breasts? Hx Musculoskeletal Problems?: Yes Musculoskeletal History: Denies:: Back Injury Joint Replacement Musculoskeletal Trauma Other History/Comment Vi Wynne is a 80 year old female with past medical history of cryptogenic cirrhosis, pancytopenia - requiring blood transfusions 08/24/2016, esophageal varices, renal insufficiency, pacer defibrillator who presents with 7 week history of generalized right forearm, wrist and hand pain. Pt reports no history of trauma but does report a history of intermittent hand and forearm pain. PT denies any swelling, erythema or warmth associated with her hand pain. She does report a history of bleeding tendencies and bruises all over her body. She denies any fever, chills currently. Hx of Psycho/Social Problems?: Yes Psycho Social History: Positive for:: Anxiety Denies:: Bipolar Disorder Hx Depression Suicide Attempt Hx Surgeries?: Yes (PACEMAKER/DEFRIBBULATOR) Hx Any Other Health Problems?: Yes Other History: Positive for:: Hospitalization Thyroid Disease (hypothyroid) Denies:: Cancer Endocrine Disease History Blood Transfusions: Positive for:: Accept Blood Products? Blood Transfusions (platelets) Denies:: Blood Transfuse Reaction Hx Diabetes: YesBedside Blood Glucose: 127 Hx Alcohol Use: NoHx Substance Use: No Smoking Status: Unknown if Ever Smoker Have You Smoked inLast 12 mo: No Objective Exam Vital Signs & I/O Vital Sign- Last 8 Hours Date Time Temp Pulse Resp B/P Pulse Ox O2 Delivery O2 Flow Rate FiO2 09/06/16 15:36 36.7 71 18 128/56 100 Nasal Cannula 1.00 09/06/16 15:36 Supplement Oxygen 09/06/16 12:30 36.7 70 16 134/62 09/06/16 11:16 Supplement Oxygen 09/06/16 11:16 36.6 71 16 132/61 100 Nasal Cannula 1.00 Intake and Output- Last 8 Hour 09/06/16 Cumulative From/Thru 07:00 09/05/16 12:22 - 09/06/16 06:46 Intake Total 1872 ml 3225 ml Output Total 700 ml 700 ml Balance 1172 ml 2525 ml Intake Oral 0 ml 0 ml IV Total 1380 ml 2533 ml FFP 200 ml Platelets 492 ml 492 ml Output Urine/Stool Mix 700 ml 700 ml # Bowel Movements 5 5 Lab & Micro Results Laboratory Tests Test 09/05/16 21:05 09/06/16 04:45 09/06/16 12:40 09/06/16 16:38 White Blood Count 3.8th/mm3 (3.8-10.1) 2.5th/mm3 (3.8-10.1) 2.6th/mm3 (3.8-10.1) Red Blood Count 2.67mil/mm3 (3.90-5.20) 2.46mil/mm3 (3.90-5.20) 3.09mil/mm3 (3.90-5.20) Hemoglobin 7.5g/dL (12.0-15.6) 7.0g/dL (12.0-15.6) 8.7g/dL (12.0-15.6) Hematocrit 24.8% (35.0-46.0) 23.0% (35.0-46.0) 28.3% (35.0-46.0) Mean Corpuscular Volume 92.9fL (81-100) 93.5fL (81-100) 91.6fL (81-100) Mean Corpuscular Hemoglobin 28.1pg (27.0-35.0) 28.5pg (27.0-35.0) 28.2pg (27.0-35.0) Mean Corpuscular Hemoglobin Concent 30.2% (32.0-37.0) 30.4% (32.0-37.0) 30.7% (32.0-37.0) Red Cell Distribution Width 17.1% (12.3-15.4) 17.1% (12.3-15.4) 17.1% (12.3-15.4) Platelet Count 27bil/L (150-400) 25bil/L (150-400) 28bil/L (150-400) Neutrophils (%) (Auto) 80.4% (40-74) Lymphocytes (%) (Auto) 9.2% (14-46) Monocytes (%) (Auto) 8.0% (4-12) Eosinophils (%) (Auto) 2.0% (0-5) Basophils (%) (Auto) 0.4% (0-3) Sodium Level 138mEq/L (134-144) Potassium Level 5.0mEq/L (3.5-5.2) Chloride Level 106mEq/L (97-108) Carbon Dioxide Level 18mmol/L (18-29) Blood Urea Nitrogen 60mg/dL (8-27) Creatinine 2.10mg/dL (0.57-1.00) Estimat Glomerular Filtration Rate 33mL/min (>59) Glucose Level 132mg/dL (60-99) Lactic Acid Level 0.5mmol/L (0.4-2.0) Calcium Level 8.0mg/dL (8.5-10.1) Magnesium Level 1.7mg/dL (1.6-2.6) Total Bilirubin 0.6mg/dL (0.0-1.2) Aspartate Amino Transf (AST/SGOT) 14U/L (0-50) Alanine Aminotransferase (ALT/SGPT) 8U/L (0-32) Alkaline Phosphatase 74U/L (25-165) Total Protein 6.4g/dL (6.4-8.4) Albumin 2.9g/dL (3.4-5.0) Procalcitonin 0.22ng/mL (0.00-0.08) Prothrombin Time 14.7sec (8.1-12.5) Prothromb Time International Ratio 1.37ratio Body Fluid Source Peritoneal fluid Body Fluid Color Yellow (Clear) Body Fluid Appearance Hazy Body Fluid WBC 8/mm3 Body Fluid RBC 76777/mm3 Body Fluid Polynuclear WBCs 9% Body Fluid Lymphocytes 33% Body Fluid Monocytes 58% Body Fluid Eosinophils 0% Body Fluid Basophils 0% Body Fluid Lactate Dehydrogenase 27U/L Peritoneal Fluid Glucose 146mg/dL Microbiology 09/05/16 MRSA (PCR) - Final, Complete Result Diagram: 09/06/16 1240 09/06/16 7051 Review of Systems: Constitutional: Negative, except as otherwise mentioned in the history above. Ophthalmologic: Negative, except as otherwise mentioned in the history above. Cardiovascular: Negative, except as otherwise mentioned in the history above. Respiratory: Negative, except as otherwise mentioned in the history above. Gastrointestinal: Negative, except as otherwise mentioned in the history above. Genitourinary: Negative, except as otherwise mentioned in the history above. Musculoskeletal: Negative, except as otherwise mentioned in the history above. Neurological: Negative, except as otherwise mentioned in the history above. Psychiatric: Negative, except as otherwise mentioned in the history above. Hematologic/Lymphatic: Negative, except as otherwise mentioned in the history above. Allergic/Immunologic: Negative, except as otherwise mentioned in the history above. H&P Surgical Exam Exam General: Alert, Oriented X3, Cooperative, Mild Distress (right hand pain, thin frail) HEENT: EOMI Neck: Within normal limits & unremarkable Respiratory: Clear to Auscultation Cardiac: Other (fdafdsa) Abdomen: Soft Breasts: Not Indicated Pelvic: Not Indicated Musculoskeletal: Gen: A+OX3 CV: regular pulse noted lungs: unlabored breathing bilaterally ext: ecchymosis noted on bilateral arms diffusely, TTP distal ulna, snuffbox tenderness- negative, limited ROM to wrist and fingers SILT m/r/u distributions intact AIN/PIN/IO 2+ radial pulse noted Additional Information 3 view xray of the right hand demonstrates diffuse osteopenia and panarthritis. Lucency noted throughout including midwaist to distal pole scaphoid H&P Preop Plan Impression Pancarpal arthritis, osteopenia, r/o septic wrist Problems: Risks & Benefits * We have reviewed the risks and benefits as well as the alternatives to surgery. All questions were answered to the patient's satisfaction and a counseling note to that effect. The patient has provided informed consent. * I have counseled the patient regarding the deleterious effects that smoking during the perioperative period can have upon wound healing, infection rates, and the overall rate of complications. Plan NWB RUE MRI with contrast to r/o infection contraindicated given renal history/dialysis recommend bone scan to r/o infection if high suspicion low suspicion for acute infection given 7 week history, distal ulnar pain, panarthritis, osteopenia and negative snuffbox tenderness recommend OT for gentle ROM and strengthening recommend cock up wrist brace for comfort as needed oral pain meds as needed continue medical management per primary pt can f/u in clinic as outpatient if symptoms persist please call with questions Jt Chacon MD Sep 06, 2016 19:10
[2016-09-06] MEDS: ALPRAZolam 0.5 mg Tablet PO PRN (21:36)
[2016-09-06 22:01] LABS: Mean Corpuscular Hemoglobin 29.8 pg (27.0-35.0); Mean Corpuscular Volume 91.6 fL (81-100)
[2016-09-07] VITALS (8 sets, daily range): BP systolic 107–151; BP diastolic 50–69; PULSE 55–75; RESP 14–20; O2SAT 96–100
[2016-09-07] MEDS: 0.9% Sodium Chloride 1,000 ML IV SCH (00:10)
[2016-09-07] MEDS: fentaNYL-PF 50 mCg/mL 2 mL Inj IVPUSH PRN ×5 (03:05→22:07)
[2016-09-07 05:10] LABS: Mean Corpuscular Hemoglobin 28.9 pg (27.0-35.0); Mean Corpuscular Volume 93.3 fL (81-100)
[2016-09-07 05:11] LABS: BASOPHILS % (AUTO) 0.4 % (0-3); EOSINOPHILS % (AUTO) 2.4 % (0-5); MONOCYTES % (AUTO) 8.3 % (4-12); NEUTROPHILS % (AUTO) 78.6 % (40-74); Platelet Count 25 bil/L (150-400)
[2016-09-07] MEDS: 0.9% Sodium Chloride 250 ML IV SCH (05:25)
[2016-09-07 05:40] LABS: Magnesium 1.7 mg/dL (1.6-2.6)
[2016-09-07] MEDS: Octreotide Inj 500 MCG in 0.9% Sodium Chloride 100 ML IV SCH ×3 (07:32→23:30)
[2016-09-07] MEDS: Insulin LISPRO 300 Unit/3 mL Inj SUBQ SCH ×4 (07:33→22:00)
[2016-09-07] MEDS: Pantoprazole 4 mg/mL 10 mL Inj IVPUSH SCH (07:33)
[2016-09-07] MEDS: cefTRIAXone Inj 2,000 MG in Dextrose 5% Minibag Plus 50 ML IV SCH (07:36)
--- NOTE | 2016-09-07 08:06 | PROG NOTE ---
[address] [address] PROGRESS NOTE PATIENT: FAMILIA SHELLEY : 1935 MR#: [id number] ADMIT: 09/05/2016 JOB ID: [id number] DATE: 09/07/2016 REASON FOR FOLLOWUP: Possible infection, right wrist. INTERVAL HISTORY: Overnight, the patient states her right wrist is somewhat better. She says there is minimal pain in the wrist at this point, though there is still a bit along the ulnar side of the wrist, but largely increased range of motion and decreased pain. She has had no fevers, chills, or sweats. She does not have cough or shortness of breath. She still has a great deal of abdominal distention despite yesterday's paracentesis. PHYSICAL EXAMINATION: An afebrile woman temp 36.8, pulse 68, respiratory rate 18, blood pressure 125/50. She is saturating well on 1 L. Mental status is clear. Oral cavity without thrush. Lungs fairly clear posteriorly. Cardiac tones with systolic murmur as noted yesterday. The abdomen is still grossly distended and ascitic. The right wrist is neither warm, nor especially tender except right along the ulnar aspect of the wrist where there is tenderness with palpation. LABORATORIES: Include white count 2500, hematocrit 27, platelets 25,000; and she remains of course pancytopenic. Her creatinine is better down to 1.89. Her LFTs are normal. Paracentesis fluid had only 8 white cells, but 15,000 red cells. PCR of the nares negative. This case was discussed this morning with Dr. Chacon of Orthopedics. Dr. Chacon felt fairly strongly that there was no acute infection in the wrist. He noted that her pain is along the ulnar side of the wrist, whereas the x-ray showed if anything a bit of irregularity along the scaphoid bone. He was not persuaded that there was osteo there based on that x-ray which he thought mainly just showed osteopenia rather than evidence of osteomyelitis. IMPRESSION: I am uncertain as to whether or not the patient has an infection in her right wrist. If she does, it is quite indolent and I doubt this represents an acute Staph or Strep infection as it seems to have a smoldering course and in fact is even somewhat better today. Occasionally mycobacteria can cause such a process, but I do not think that is terribly likely in this case. At this point, given that the ortho internal control consultant does not feel a tap or an invasive investigation of the wrist is warranted especially in view of her pancytopenia, I think it is probably reasonable to observe the patient and wait on an invasive procedure should her wrist worsen or become more obviously infected. A bone scan might be an intermediate option, but runs the risk of showing just nonspecific finding. RECOMMENDATIONS: 1. I would continue with the ceftriaxone as this might treat any infection in the wrist at least in the short term and also be potentially useful in terms of SBP prophylaxis. I would not necessarily pursue 6 weeks of IV antibiotics without additional proof of infection. 2. Consider bone scan unless there is some contraindication with particular attention of course to the right wrist. 3. Unless we have unequivocal evidence of infection either through strongly positive bone scan or perhaps a tap of the wrist at some future date, I would not pursue a 6 week course of antibiotics because I am not certain that there is infection in the wrist, nor am I certain as to the microorganism involved. 4. Continue ceftriaxone though in the short term for SBP prophylaxis. 5. Note that I will be out of town the next 6 days returning to work on Monday, September 14. I can be reached through text or e-mail, but I will actually be out of the country so telephone will probably not be an option.
--- NOTE | 2016-09-07 08:16 | PCM.PNMED ---
Subjective Date of Service Sep 07, 2016 Subjective Patient is a 80yof with MHx of DM II, hx obesity, cryptogenic liver cirrhosis with multiple sequela including esophageal varices, pancytopenia, and afib, CKD , plus hypothyroidism initially presented with hematemesis and hematochezia (). Post platelets and pRBC transfusion, band esophageal varices, and paracentesis, patient remains stable overnight. Patient still reports burning sensations around the epigastric area, though significantly less from yesterday. Diet was changed to clear liquids overnight, tolerating well. She denies any nausea or vomiting. No gingival bleeding. Did reports several bouts of diarrhea, bile-colored. No dizziness. No fever, chills , or night sweats. Right hand remains painful, though decreased as well. No increase in swelling. Vitals stable, BP-MAP mid-70-80's. Tmax 37.0C. She sat well 100% on 1L O2 nasal canula. Blood culture continues to be negative, WBC 2.5K no bands. Platelets 25, low, stable. Kidney function improving, Cr 1.89. Exam Vital Signs Vital Sign - Last Date Time Temp Pulse Resp B/P Pulse Ox O2 Delivery O2 Flow Rate FiO2 09/07/16 07:20 Supplement Oxygen 09/07/16 07:20 68 18 125/50 100 1.00 09/07/16 04:30 36.8 Intake and Output 09/06/16 09/06/16 09/07/16 Cumulative From/Thru 15:00 23:00 07:00 09/05/16 12:22 - 09/07/16 06:30 Intake Total 830 ml 797 ml 1337 ml 6189 ml Output Total 740 ml 1010 ml 2450 ml Balance 830 ml 57 ml 327 ml 3739 ml Intake Oral 200 ml 320 ml 520 ml IV Total 150 ml 597 ml 1017 ml 4297 ml Packed Cells 680 ml 680 ml FFP 200 ml Platelets 492 ml Output Urine Total 580 ml 580 ml 1160 ml Urine/Stool Mix 160 ml 430 ml 1290 ml # Bowel Movements 5 Exam General: Alert, Oriented X3, Cooperative, thin frail Head: Normal Eyes: PERRLA, EOMI, Scleral Anicteric Mouth: Mucous Membr Moist/Central, Other (no signs of gingival bleeding) Neck: Supple, Other (no JVD) Chest & Lungs: Clear to auscultation & percussion, No adventitious breath sounds Cardiovascular: Exam Unremarkable, Regular Rate/Rhythm, Systolic +3 murmur. Abdomen: Distended, Normoactive bowel tones, Other (distended, flank dullness, positive fluid wave,) Genitourinary: Other (deferred) Extremities: Other (mild edema in the lower legs, right hand/wrist warm, tender with ROM) Neurological: Grossly Neurologically Intact, Cranial Nerves 2-12 Intact, Other (moving equally in 4 extremities) IVs and Medications IV Fluids NS 75cc/hr Medications Reviewed: Medications were reviewed in detail Lab and Diagnostics Result Diagram: 09/07/1644909/07/16449 X-Rays, CTs and MRIs . X-RAY PICC LINE PLACEMENT BY NURSE IMPRESSION: Tip of PICC lies at the cavoatrial junction. Dictated by: Mehdi Cummings M.D. on 09/05/2016 at 17:41 Cardiac Echo Impressions . Echocardiogram Report Interpretation Summary: The left ventricle is mildly dilated. Left ventricular ejection fraction is estimated to be 40%. Apical and anteroseptal akinesis, inferoapical dyskinesis, c/w prior LAD infarct The right ventricle is mildly dilated. There is a pacemaker lead in the right ventricle. The left atrium is severely dilated. There is mild to moderate mitral regurgitation. There is no hemodynamically significant valvular aortic stenosis. There is moderate tricuspid regurgitation. The right ventricular systolic pressure is estimated at 51 mmHg assuming a right atrial pressure of 8 mm Hg. There is mild pulmonic regurgitation. There are large-sized bilateral pleural effusions noted. Electronically signed by: Yung Shahid on [facility] . US ABDOMEN DOPPLER, LIMITED IMPRESSION: 1. Cirrhotic appearance of the liver in no discrete focal hepatic abnormality is seen. 2. Enlarged portal vein otherwise normal hepatoportal Doppler assessment. 3. Splenomegaly suggesting portal hypertension. 4. Bilateral renal cortical thinning. 5. Moderate ascites. Dictated by: Frank Rosa RR Interpreted: Edwin Biggs MD on 09/05/2016 at 15 :08 Esophagogastroduodenoscopy. IMPRESSION: 1. Large esophageal varices, status post band ligation x4. 2. Small esophageal varices. Sindhu Alvarado MD 09/05/16 [id number] Assessment & Plan Patient is a 80yof with MHx of DM II, hx obesity, cryptogenic liver cirrhosis with multiple sequela including esophageal varices, pancytopenia, and afib, CKD , plus hypothyroidism initially presented with hematemesis and hematochezia (). Post platelets and pRBC transfusion, band esophageal varices, and paracentesis, patient remains hemodynamically stable overnight. Patient was presume to have brisk upper GI bleed given HPI and risks for bleeding due low platelets and portal hypertension. She remains at high risk, thus requires octreotide. Will add nadolol to augment. No signs of bleeding at this time, consider further platelets transfusion as indicated. While receiving bi-weekly therapeutic paracentesis 6wks ago, she discovered right hand swollen at IV site, thought possible cellulitis, failed outpatient bactrim. Hand xray suggest possible osteomyelitis to the scaphoid bone. Will await bone scan. She will likely need bone biopsy to determine organism and better abx selection. ID currently following and cont ceftriaxone in the mean time. Problem List/PLAN # Cryptogenic liver cirrhosis # Acute normocytic anemia # Possible gastrointestinal bleed # Pancytopenia # Portal hypertension with esophageal varices and refractory ascites - Continue octreotide for 72hr total per GI - Added Nadolol 40mg daily. 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 She received transfusion support with RBCs and platelets as well as urgent EGD with banding of esophageal varices. She has done well overall with stable hemodynamics and no worsening of her CKD. 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 It is possible that she has clear portal venous thrombosis (there is chart mention of remote PV thrombus) which would preclude TIPS. We will discuss this with GI (? evaluated as an outpatient?) and either document her contraindication or proceed with hepatic imaging. We will continue ceftriaxone, octreotide and PPI for 72hours in the aftermath of her acute variceal bleeding. We will advance her diet today and can transition to PO PPI as tolerated. She tolerated 4L paracentesis yesterday with albumin support without any worsening of her BP, UO, or renal indices. Pt also with swollen, warm, and tender R wrist. She has pain with flexion and tenderness with palpation over the ulnar aspect of the R wrist. She apparently has been treated several times over the past 7weeks with PO abx for localized cellulitis with a waxing and waning response. Orthopedics consult appreciated. Radiographs concerning for possible scaphoid osteomyelitis but 3phase bone scan today notes more diffuse radiotracer uptake consistent with a regional pain syndrome. We will discuss this finding with Orthopedics and consider tagged WBC scan as more definitive testing to rule out scaphoid osteomyelitis. GI Prophylaxis: Proton Pump Inhibitor VTE Prophylaxis: SCDs VTE Mechanical Devices: Intermittant Pneumatic CD Resuscitation Status: DNR/DNI:Do Not Resuscitate/Intubate Attending Statement The patient was seen and examined together with Dr. Sharma today and I have added additional information to the note above. Steve Pantoja DO Sep 07, 2016 08:16 Partha Metz MD Sep 07, 2016 17:05
[2016-09-07] MEDS ORDERED: Phytonadione (Adult) 10 mg/1 mL Inj PO ONE (08:55)
[2016-09-07] MEDS ORDERED: 0.9% Sodium Chloride 250 ML IV SCH (08:55)
--- NOTE | 2016-09-07 09:53 | PCM.PNMED ---
Subjective Date of Service Sep 07, 2016 Subjective GASTROENTEROLOGY PROGRESS NOTE: Patient reports persistent burning sensation in her throat and epigastric area. She also admits to mild pain with drinking, but overall tolerates clear liquid well. She denies any nausea or vomiting. Patient reports several loose BM that was still black last night. Otherwise, she feels better since paracentesis that removed 4.1L yesterday. Exam Vital Signs Vital Sign - Last Date Time Temp Pulse Resp B/P Pulse Ox O2 Delivery O2 Flow Rate FiO2 09/07/16 07:20 Supplement Oxygen 09/07/16 07:20 36.7 68 18 125/50 100 1.00 Intake and Output 09/06/16 09/06/16 09/07/16 Cumulative From/Thru 15:00 23:00 07:00 09/05/16 12:22 - 09/07/16 06:30 Intake Total 830 ml 797 ml 1337 ml 6189 ml Output Total 740 ml 1010 ml 2450 ml Balance 830 ml 57 ml 327 ml 3739 ml Intake Oral 200 ml 320 ml 520 ml IV Total 150 ml 597 ml 1017 ml 4297 ml Packed Cells 680 ml 680 ml FFP 200 ml Platelets 492 ml Output Urine Total 580 ml 580 ml 1160 ml Urine/Stool Mix 160 ml 430 ml 1290 ml # Bowel Movements 5 Exam General: Alert and oriented. Elderly female lying on the bed in no acute distress. Appropriately interactive. Pleasant and cooperative. HEENT: NCAT. External ears without defect. EOMI. Sclera anicteric, but pale. Oral mucous membranes dry Respiratory: Clear to auscultation bilaterally with no crackles. Normal respiratory effort with no use of accessory muscles. Cardiovascular: Regular rate and rhythm. II/ systolic murmur noted. Abdomen: Soft, mildly distended abdomen. Mild tenderness to palpation in the epigastric area. No guarding or rebound tenderness. Ascites improved in the morning, but built up again in the afternoon. Extremities: No edema, clubbing, cyanosis. Skin: Normal temperature, turgor, and texture. No jaundice. Neurological: Normal speech. IVs and Medications Medications Reviewed: Medications were reviewed in detail Lab and Diagnostics Result Diagram: 09/07/16 0450 09/07/16 0450 X-Rays, CTs and MRIs . X-RAY PICC LINE PLACEMENT BY NURSE IMPRESSION: Tip of PICC lies at the cavoatrial junction. Dictated by: Mehdi Cummings M.D. on 09/05/2016 at 17:41 Cardiac Echo Impressions . Echocardiogram Report Interpretation Summary: The left ventricle is mildly dilated. Left ventricular ejection fraction is estimated to be 40%. Apical and anteroseptal akinesis, inferoapical dyskinesis, c/w prior LAD infarct The right ventricle is mildly dilated. There is a pacemaker lead in the right ventricle. The left atrium is severely dilated. There is mild to moderate mitral regurgitation. There is no hemodynamically significant valvular aortic stenosis. There is moderate tricuspid regurgitation. The right ventricular systolic pressure is estimated at 51 mmHg assuming a right atrial pressure of 8 mm Hg. There is mild pulmonic regurgitation. There are large-sized bilateral pleural effusions noted. Electronically signed by: Yung Shahid on [facility] . US ABDOMEN DOPPLER, LIMITED IMPRESSION: 1. Cirrhotic appearance of the liver in no discrete focal hepatic abnormality is seen. 2. Enlarged portal vein otherwise normal hepatoportal Doppler assessment. 3. Splenomegaly suggesting portal hypertension. 4. Bilateral renal cortical thinning. 5. Moderate ascites. Dictated by: Frank Rosa RR Interpreted: Edwin Biggs MD on 09/05/2016 at 15 :08 Esophagogastroduodenoscopy. IMPRESSION: 1. Large esophageal varices, status post band ligation x4. 2. Small esophageal varices. Sindhu Alvarado MD 09/05/16 [id number] Assessment & Plan This is a 80-year-old woman with cryptogenic cirrhosis, esophageal varices and ascites with frequent paracenteses presented with hematemesis and hematochezia. Her acute normocytic anemia is likely secondary to upper GI bleed from the esophageal varices s/p banding x 4. She was also found to have significant thrombocytopenia of 25 that required platelet transfusion. She is Child-Casas class B and MELD score is 16. s/p EGD on 09/05/2016 IMPRESSION: 1. Large esophageal varices, status post band ligation x4. 2. Small esophageal varices. RECOMMENDATIONS: - Patient's melenic stools is likely residual from the variceal bleeding. - Can advance diet as tolerated. - Continue to monitor serial hematologic parameter testing. We will defer the transfusion plan to the primary care team, but her hemoglobin goal should be in the 7-9 range. - Ideally, we would like to keep her platelet level of greater than 50,000. Continue to follow with Hematology for further recommendations. - Continue prophylactic antibiotic with Ceftriaxone. - Continue Octreotide ggt for a total of 72 hours (started on 09/05 at 2130). - ICU team inquired about TIPS and we discussed this with the patient. However, this was brought up as outpatient and patient refused. She continues to decline any invasive procedure at this point. - Consider palliative care consult. - Repeat paracentesis as needed. - We think it is ok to start Nadolol per the ICU team, but we need to monitor her BP closely. - Change Protonix 40mg IV to PO. Will add Carafate 1g PO QID. - Patient should have a repeat EGD with possible additional banding in 2 weeks after discharge. - Follow up with Dr. Thakur as outpatient. Thank you for allowing us to participate in this patient's care. We will continue to follow. Please do not hesitate to contact us for any question or concern. Pain Evaluation: Adequate Pain Control GI Prophylaxis: Proton Pump Inhibitor VTE Prophylaxis: SCDs VTE Mechanical Devices: Intermittant Pneumatic CD Resuscitation Status: DNR/DNI:Do Not Resuscitate/Intubate Attending Statement Pt seen and examined with resident physician had small melenic stool, no longer maroon tolerating clears no new complaints her abdomen is distended despite large volume paracentesis yesterday, plan for paracentesis tomorrow if symptomatic can d/c octreotide tomorrow consider holding PPI and lets see if platelet count improves, could continue carafate or place on H 2 jam continue supportive care Ben Soriano DO Sep 07, 2016 09:53 Sindhu Alvarado MD Sep 07, 2016 21:07
--- NOTE | 2016-09-07 10:02 | PCM.PNMED ---
Subjective Date of Service Sep 07, 2016 Subjective Overnight: Diet was progressed to clear liquids overnight which she tolerated well. She continues to deny any nausea or vomiting throughout the night. She did not have multiple loose stools. She states that overnight she still had a burning/pain. Sensation in her abdomen. Today: Patient awake alert lying in hospital bed. States that she has a "burning sensation" in her abdomen. Denies nausea vomiting chest pain shortness of breath, fever, chills or night sweats. States she is having diarrhea throughout the night and again this morning. She also states that her right wrist still painful but she feels as if it is improving. Exam Vital Signs Vital Sign - Last Date Time Temp Pulse Resp B/P Pulse Ox O2 Delivery O2 Flow Rate FiO2 09/07/16 07:20 Supplement Oxygen 09/07/16 07:20 36.7 68 18 125/50 100 1.00 Intake and Output 09/06/16 09/06/16 09/07/16 Cumulative From/Thru 15:00 23:00 07:00 09/05/16 12:22 - 09/07/16 06:30 Intake Total 830 ml 797 ml 1337 ml 6189 ml Output Total 740 ml 1010 ml 2450 ml Balance 830 ml 57 ml 327 ml 3739 ml Intake Oral 200 ml 320 ml 520 ml IV Total 150 ml 597 ml 1017 ml 4297 ml Packed Cells 680 ml 680 ml FFP 200 ml Platelets 492 ml Output Urine Total 580 ml 580 ml 1160 ml Urine/Stool Mix 160 ml 430 ml 1290 ml # Bowel Movements 5 Exam General: Elderly female in no acute distress laying in hospital but appropriately interactive. HEENT: Normocephalic, atraumatic. External ears without defect. Pupils equal, round, and reactive to light and accommodation. Pale sclera. Neck: No jugular venous distension. Cardiovascular: Regular rate and rhythm with soft systolic murmur heard at left and right 2nd intercostal/sternal border Pulmonary: Clear to auscultation bilaterally with no crackles. Normal respiratory effort with no use of accessory muscles. Abdomen: Distended abdomen, soft palpation 4 quadrants. Mildly tender to palpation. Significant ascites, fluid wave appreciated Extremities: No clubbing, cyanosis. Lower extremity edema bilaterally to ankles. Right upper extremity wrist warm and tender to palpation. Skin: Normal temperature, turgor, and texture. Neurological: Cranial nerves grossly intact. Psychiatric: Normal mood and affect. Alert and oriented to person, place, and time. IVs and Medications Medications Reviewed: Medications were reviewed in detail Lab and Diagnostics Result Diagram: 09/07/1644909/07/16449 X-Rays, CTs and MRIs . X-RAY PICC LINE PLACEMENT BY NURSE IMPRESSION: Tip of PICC lies at the cavoatrial junction. Dictated by: Mehdi Cummings M.D. on 09/05/2016 at 17:41 Cardiac Echo Impressions . Echocardiogram Report Interpretation Summary: The left ventricle is mildly dilated. Left ventricular ejection fraction is estimated to be 40%. Apical and anteroseptal akinesis, inferoapical dyskinesis, c/w prior LAD infarct The right ventricle is mildly dilated. There is a pacemaker lead in the right ventricle. The left atrium is severely dilated. There is mild to moderate mitral regurgitation. There is no hemodynamically significant valvular aortic stenosis. There is moderate tricuspid regurgitation. The right ventricular systolic pressure is estimated at 51 mmHg assuming a right atrial pressure of 8 mm Hg. There is mild pulmonic regurgitation. There are large-sized bilateral pleural effusions noted. Electronically signed by: Yung Shahid on [facility] . US ABDOMEN DOPPLER, LIMITED IMPRESSION: 1. Cirrhotic appearance of the liver in no discrete focal hepatic abnormality is seen. 2. Enlarged portal vein otherwise normal hepatoportal Doppler assessment. 3. Splenomegaly suggesting portal hypertension. 4. Bilateral renal cortical thinning. 5. Moderate ascites. Dictated by: Frank NAVARRO Interpreted: Edwin Biggs MD on 09/05/2016 at 15 :08 Esophagogastroduodenoscopy. IMPRESSION: 1. Large esophageal varices, status post band ligation x4. 2. Small esophageal varices. Sindhu Alvarado MD 09/05/16 [id number] US GUIDED PARACENTESIS, PRIMARY FINDINGS: Access site: Right lower quadrant Needle: One-Step centesis catheter with introducer needle. Fluid volume and description: 4.1 L slightly bloody tinged peritoneal fluid. Fluid sent for diagnostic testing: Fluid sent for cytology, multiple chemistry panels and therapeutic drainage. Medications: 1% lidocaine for local anaesthesia. Complications: None. IMPRESSION: Successful ultrasound-guided paracentesis. Dictated by: Frank NAVARRO Interpreted: Magdalene Bello MD on 09/06/2016 at 16:55 Assessment & Plan 80-year-old female past medical history of cryptogenic cirrhosis pancytopenia esophageal varices admitted for hematemesis and hematochezia. From ED C PICC line placement followed by GI upper and lower endoscopy for source identification. Gastrointestinal bleed. Acute Present on admission. Ongoing - GI following - EGD showed Large esophageal varices, status post band ligation x4 - No NG or OG tube placement - Has already received 2 units PRBCs, at time of dictation receiving third unit - Continue to follow H&H, transfuse if hemoglobin less than 8 - Continue octreotide - per GI recommendation - Continue PPI - Advance diet to clear liquids Cryptogenic cirrhosis. Chronic. Present on admission. Ongoing - Continue octreotide as above - Nadolol 40mg daily. 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 Present on admission. Acute on chronic. Ongoing - Transfuse threshold as above Pancytopenia. Present on admission. Acute. Ongoing - Hematology oncology following, recommendations appreciated - Transfuse platelets, replete if less than 50,000 - 3 units platelets thus far - Additional unit of platelets scheduled for 09/07/2016 post nuclear medicine scan - Per heme/onc recommendations: - Continue home Promacta Abdominal ascites. Present on admission. Ongoing. Chronic. - At baseline receives bimonthly paracentesis taking approximately 8 L off each time - Scheduled to have paracentesis yesterday prior to admission - ICU following/ recommendation appreciated - Paracentesis 09/06/2016, 4 L fluid removed Possible cellulitis of right wrist. Present on admission. Ongoing - Infectious disease following, recommendations are appreciated - CXR shows possible osteomyelitis - Nuclear medicine scan pending - Ceftriaxone 2 g daily - Continue to monitor Hypertension. Chronic. Present admission. Ongoing - Hold home furosemide 40 mg by mouth daily -Paracentesis as above Hyperlipidemia. Chronic. Present admission. Ongoing - Hold home atorvastatin 20 mg by mouth daily Diabetes type II. Chronic. Present admission. Ongoing - Correctional scale insulin - A1c pending Hypothyroidism. Chronic. Present on admission. Ongoing - Hold home levothyroxine 200 g Chronic kidney disease. Present on admission. Ongoing - Avoid nephrotoxic agents - IV hydration 100 mL normal saline per hour after blood transfusion completion - Creatinine remains elevated though trending down - Continue to monitor Disposition: The patient downgraded to PCC status. Anticipate additional 1-2 hospital days Pain Evaluation: Adequate Pain Control GI Prophylaxis: Proton Pump Inhibitor VTE Prophylaxis: SCDs VTE Mechanical Devices: Intermittant Pneumatic CD Resuscitation Status: DNR/DNI:Do Not Resuscitate/Intubate Attending Statement Given rapid return of ascites, a palliative care discussion regarding hospice would be appropriate at this time. Further palliation may be achieved through placement of a percutaneous catheter (PleurX) by Interventional Radiology during the next paracentesis, which could be needed as early as 09/08/2016. The patient was seen and examined together with Dr. Santiago on 09/07/2016 and I agree with the history, exam and plan as outlined in the note above. . COLLETTE SANITAGO DO Sep 07, 2016 09:38 Bryan Vanegas MD Sep 08, 2016 02:17
--- NOTE | 2016-09-07 10:32 | NUR ---
Pain Patient complained of 4-5/10 back and generalized pain this morning medicated with fentanyl 25mcg IV x1- stated good relive of pain. Patient was up to the bedside commode with one persona assist and tolerated the activity well. Patient out to Nuclear Med after 1000 today for first part bone scan. Second part to be completed after 1300 today.
[2016-09-07] MEDS ORDERED: Ondansetron 8 mg ODT Tablet PO PRN (10:55)
[2016-09-07] MEDS: Sucralfate 1,000 mg Tablet PO SCH ×3 (11:36→22:01)
--- NOTE | 2016-09-07 13:40 | NUR ---
NUTRITION FOLLOW-UP: ASSESS: Pt is a 80yo F admitted to CCU for GI bleed. She is s/p upper endoscopy and found to have variceal bleeding. GI is following. Pt was able to have her diet advanced to CL and she has been tolerating well. No major n/v. Pt is s/p paracentesis 09/06. ID is following for possible infection in rt arm PMHX: cryptogenic cirrhosis, pancytopenia, esophageal varices, renal insufficiency, DM LABS: Reviewed. Cl 110, Bun 56, Mobile Crane Operator 1.89, Glu 112, Ca 8.2, alb 3.5 MEDS: Reviewed. GI: BMx5 09/06- dark maroon/black stool SKIN: Jason 18- possible infection in rt arm CURRENT WTS: 62.4kg, BMI 24.4kg/m2, admit wt 64.9kg. Wt decrease r/t paracentesis DIET: NPOx2 EST. NEEDS: cirrhosis, CKD Kcals: 1940-2265kcal/day (30-35kcal/kg) Pro: 65-80g/day (1.0-1.2g/kg) Fluids:~1650ml/day (25ml/kg) NUTRITION DIAGNOSIS: 1.) Inadequate oral intake related to altered gi function as evidence by need for NPO status and bowel rest--IMPROVING NUTRITION INTERVENTION: 1.) Continue to advance diet as tolerated. 2.) Will add Ensure CL on lunch tray and Gelatein on D tray while pt is on CL diet to help increase kcal/pro intake MONITOR / EVAL: PO, diet advc, GI, labs, wt, POC, nutrition status. Will continue to monitor per high nutrition risk guidelines.
[2016-09-07] MEDS: ELTROMBOPAG 25 MG PO SCH (14:30)
--- NOTE | 2016-09-07 15:56 | DRSVH ---
PROCEDURE: NM BONE SCAN THREE PHASE RADIOPHARMACEUTICAL: 26.3 mCi Tc-99m MDP IV. INDICATIONS: RIGHT WRIST PAIN TECHNIQUE: Multiple bone scintigrams were obtained after intravenous injection of Tc-99m MDP, including flow, bl ood pool, and delayed images centered to the region of interest. COMPARISON: [facility], CR, XR WRIST 3VW RT, 09/06/2016, 9:25. FINDINGS: Immediate blood flow images demonstrate diffuse increased radiotracer involving the distal right forearm, the right wrist and the first second third and fourth DIP joints. Intermediate blood p ool images demonstrate diffuse increased radiotracer in the distal right forearm, right wrist and fir st, second or third and fourth DIP joints. Delayed images demonstrate diffuse, increased radiotracer uptake involving the carpal bones, distal radius, distal ulna and first, second, third and fourth DIP joints. Finding is most suspicious for complex regional pain syndrome, however finding is nonspecifi c and infectious process cannot be completely excluded. Recommend nuclear medicine tagged white cell scan if there is clinical concern for cellulitis with osteomyelitis. IMPRESSION: Abnormal radiotracer activity in all 3 phases involving the distal radius, distal ulna, t he carpal bones of the wrist and DIP joints of the hand most suspicious for a complex regional pain s yndrome, however nuclear medicine tagged white cell scan is warranted if there is clinical concern fo r cellulitis with osteomyelitis. Dictated by: Magdalene Bello MD, PhD on 09/07/2016 at 15:39 Approved by: Magdalene Bello MD, PhD on 09/07/2016 at 15:54
--- NOTE | 2016-09-07 17:36 | NUR ---
transfer: Received 1 unit plts, transfusion well tolerated. Off unit for approx 45 minutes for Nuclear Study, see report for details. Medicated x1 for pain, 25mcg Fentanyl provided effective relief. Pt transferred to [facility]23, report to Nidhi BARBOSA, all personal belongings with pt.
--- NOTE | 2016-09-07 18:39 | NUR ---
Trans from Rm 2009 to Rm 3023 A&O Pt arrived on unit at 1715, c/o abd/back pain 09/21. IVF not infusing. On 1L NC. BG checked. Pt continues on a clear diet-provided from units nutrition room. Pt SBA to [facility].
[2016-09-07] MEDS: ALPRAZolam 0.5 mg Tablet PO PRN (22:07)
--- NOTE | 2016-09-07 22:16 | NUR ---
Pain Pt c/o abdominal and back pain rated at a 6 Given IV fentanyl as ordered. Will monitor for effectiveness
[2016-09-08 02:11] LABS: BASOPHILS % (AUTO) 0.3 % (0-3); EOSINOPHILS % (AUTO) 2.2 % (0-5); MONOCYTES % (AUTO) 6.9 % (4-12); Mean Corpuscular Hemoglobin 28.9 pg (27.0-35.0); Mean Corpuscular Volume 93.7 fL (81-100); NEUTROPHILS % (AUTO) 81.8 % (40-74)
[2016-09-08 02:12] LABS: Platelet Count 28 bil/L (150-400)
[2016-09-08] MEDS: Octreotide Inj 500 MCG in 0.9% Sodium Chloride 100 ML IV SCH (02:26)
[2016-09-08 05:57] VITALS: BP 121/64; PULSE 55; RESP 20; O2SAT 95
[2016-09-08] MEDS: Sucralfate 1,000 mg Tablet PO SCH ×4 (06:05→21:09)
[2016-09-08] MEDS: fentaNYL-PF 50 mCg/mL 2 mL Inj IVPUSH PRN ×5 (06:47→22:30)
[2016-09-08] MEDS: Insulin LISPRO 300 Unit/3 mL Inj SUBQ SCH ×4 (08:00→21:13)
[2016-09-08] MEDS: Pantoprazole 40 mg ER24 Tablet PO SCH (09:09)
--- NOTE | 2016-09-08 09:47 | PCM.PNMED ---
Subjective Date of Service Sep 08, 2016 Subjective Patient is a 80yof with MHx of DM II, hx obesity, cryptogenic liver cirrhosis with multiple sequela including esophageal varices, pancytopenia, and afib, CKD , plus hypothyroidism initially presented with hematemesis and hematochezia (). Post platelets and pRBC transfusion, band esophageal varices, and paracentesis. No new complaints, epigastric pain minimal with the addition of Carafate and PPI. She ate biscuits and gravy for breakfast without n/v. No gingival bleeding. No fever, chills, or night sweats. Mild dizziness and headache with standing, no change from baseline however. Abdomen distended, significantly less from admission. Patient reports low appetite with associated nausea and vomiting when ascetic fluid build up towards the latter 2wks where she would undergo therapeutic paracentesis. Patient continues to decline TIPS procedure. However, express interest in pigtail catheter, or similar device to help with ascetic fluids. Right hand again, remains painful, worst with pronation and supination, though decreased as well. No increase in swelling. Vitals stable. Tmax 36.9C. She sat well 96-98% on room air. Hgb 8.7, stable after 2 units pRBC. No significant platelet changes, Plt remains 28k, even after a 3rd pack platelet transfusion. No WBC elevation. Cr function 1.81. This is likely her baseline from review. Blood culture continues to be negative. Exam Vital Signs Vital Sign - Last Date Time Temp Pulse Resp B/P Pulse Ox O2 Delivery O2 Flow Rate FiO2 09/08/16 05:57 36.7 55 20 121/64 95 Room Air 09/07/16 18:44 1.00 Intake and Output 09/07/16 09/07/16 09/08/16 Cumulative From/Thru 15:00 23:00 07:00 09/05/16 12:22 - 09/08/16 06:14 Intake Total 250 ml 494 ml 861 ml 7794 ml Output Total 400 ml 2850 ml Balance 250 ml 494 ml 461 ml 4944 ml Intake Oral 636 ml 1156 ml IV Total 50 ml 494 ml 225 ml 5066 ml Packed Cells 680 ml FFP 200 ml Platelets 200 ml 692 ml Output Urine Total 400 ml 1560 ml Urine/Stool Mix 1290 ml # Bowel Movements 1 6 Exam General: Alert, Oriented X3, Cooperative, thin frail Head: Normal Eyes: PERRLA, EOMI, Scleral Anicteric Mouth: Mucous Membr Moist/[place], Other (no signs of gingival bleeding) Neck: Supple, Other (no JVD) Chest & Lungs: Clear to auscultation & percussion, No adventitious breath sounds Cardiovascular: Exam Unremarkable, Regular Rate/Rhythm, Systolic +3 murmur. Abdomen: Distended, Normoactive bowel tones, Other (distended, flank dullness, positive fluid wave) Genitourinary: Other (deferred) Extremities: No pedal edema, Right hand tender with supination and pronation. No increase in swelling or erythema. Neurological: Grossly Neurologically Intact, Cranial Nerves 2-12 Intact, Other (moving equally in 4 extremities) Lab and Diagnostics Result Diagram: 09/08/1619909/08/16199 X-Rays, CTs and MRIs . X-RAY PICC LINE PLACEMENT BY NURSE IMPRESSION: Tip of PICC lies at the cavoatrial junction. Dictated by: Mehdi Cummings M.D. on 09/05/2016 at 17:41 Cardiac Echo Impressions . Echocardiogram Report Interpretation Summary: The left ventricle is mildly dilated. Left ventricular ejection fraction is estimated to be 40%. Apical and anteroseptal akinesis, inferoapical dyskinesis, c/w prior LAD infarct The right ventricle is mildly dilated. There is a pacemaker lead in the right ventricle. The left atrium is severely dilated. There is mild to moderate mitral regurgitation. There is no hemodynamically significant valvular aortic stenosis. There is moderate tricuspid regurgitation. The right ventricular systolic pressure is estimated at 51 mmHg assuming a right atrial pressure of 8 mm Hg. There is mild pulmonic regurgitation. There are large-sized bilateral pleural effusions noted. Electronically signed by: Yung Shahid on [facility] . US ABDOMEN DOPPLER, LIMITED IMPRESSION: 1. Cirrhotic appearance of the liver in no discrete focal hepatic abnormality is seen. 2. Enlarged portal vein otherwise normal hepatoportal Doppler assessment. 3. Splenomegaly suggesting portal hypertension. 4. Bilateral renal cortical thinning. 5. Moderate ascites. Dictated by: Frank Rosa RRA Interpreted: Edwin Biggs MD on 09/05/2016 at 15 :08 Esophagogastroduodenoscopy. IMPRESSION: 1. Large esophageal varices, status post band ligation x4. 2. Small esophageal varices. Sindhu Alvarado MD 09/05/16 [id number] US GUIDED PARACENTESIS, PRIMARY FINDINGS: Access site: Right lower quadrant Needle: One-Step centesis catheter with introducer needle. Fluid volume and description: 4.1 L slightly bloody tinged peritoneal fluid. Fluid sent for diagnostic testing: Fluid sent for cytology, multiple chemistry panels and therapeutic drainage. Medications: 1% lidocaine for local anaesthesia. Complications: None. IMPRESSION: Successful ultrasound-guided paracentesis. Dictated by: Frank Rosa RRA Interpreted: Magdalene Bello MD on 09/06/2016 at 16:55 Assessment & Plan Patient is a 80yof with MHx of DM II, hx obesity, cryptogenic liver cirrhosis with multiple sequela including esophageal varices, pancytopenia, and afib, CKD , plus hypothyroidism initially presented with hematemesis and hematochezia (). Post platelets and pRBC transfusion, band esophageal varices, and paracentesis, patient remains hemodynamically stable. Patient was presume to have brisk upper GI bleed given HPI and risks for bleeding due low platelets and portal hypertension. Patient is a Child-Pug Class B. She remains at high risk rebleed, thus requires octreotide. Trial nadolol was indicated and added (09/07) with end goal to decrease risk of bleeding and also ascites, balanced by side-effects of beta-blockers. Will lower nadolol to 20mg daily as patient is mildly bradycardic and mild fatigue. No signs of bleeding at this time. Transfuse platelets and pRBC as indicated. While receiving bi-weekly therapeutic paracentesis 6wks ago, she discovered right hand swollen at IV site, thought possible cellulitis, failed outpatient bactrim. Hand xray suggest possible osteomyelitis to the scaphoid bone. However , Triple-phase bone scan suggest regional pain syndrome and radiology recommend further imaging with WBC tag scan. Will awaits orthopedics in this regards. Careful thoughts should be consider in regards to biopsy as the carpal bones have poor vasculature. That said, she may ultimately need a bone biopsy to determine organism and better abx selection should further workup indicates infection. ID currently following and cont ceftriaxone in the mean time. Problem List/PLAN # Cryptogenic liver cirrhosis # Acute normocytic anemia # Possible gastrointestinal bleed # Pancytopenia # Portal hypertension with esophageal varices and refractory ascites - Continue octreotide for 72hr total per GI. - Decrease Nadolol 20mg daily. Child-Pug class B - Limit dietary salt intake to less than 2 g per day - Hold off DVT prophylaxis in the setting of significant thrombocytopenia and GI bleeding, continue GI prophylaxis # Right hand swelling possible osteomyelitis - Cont ceftriaxone Total time spent 20min GI Prophylaxis: Proton Pump Inhibitor VTE Prophylaxis: SCDs VTE Mechanical Devices: Intermittant Pneumatic CD Resuscitation Status: DNR/DNI:Do Not Resuscitate/Intubate Steve Pantoja DO Sep 08, 2016 09:47
--- NOTE | 2016-09-08 10:05 | DRSVH ---
PROCEDURE: US ABDOMEN, LIMITED ([id number]) INDICATIONS: Ascites TECHNIQUE: Real-time focused scanning was performed of the abdomen, with image documentation. COMPARISON: [facility], US, US GUIDED PARACENTESIS, 09/06/2016, 14:50. FINDINGS: Moderate amount of ascites is present, most notably within the upper abdomen and there are several bowel loops floating within the fluid within the inferior pelvis. IMPRESSION: Ascites present, mostly within the upper abdomen with multiple floating bowel loops seen within the fluid within the pelvis. Dictated by: Frank NAVARRO Interpreted: Poornima Salcedo MD on 09/08/2016 at 10:02 Transcribed by: JOSE CARLOS on 09/08/2016 at 10:05 Approved by: Poornima Salcedo M.D. on 09/10/2016 at 10:09
[2016-09-08] MEDS ORDERED: 0.9% Sodium Chloride 100 ML ONE (10:26)
[2016-09-08] MEDS: cefTRIAXone Inj 2,000 MG in Dextrose 5% Minibag Plus 50 ML IV SCH (10:32)
--- NOTE | 2016-09-08 13:18 | PROG NOTE ---
[address] [address] PROGRESS NOTE PATIENT: FAMILIA SHELLEY : 1935 MR#: [id number] ADMIT: 09/05/2016 JOB ID: [id number] DATE: 09/08/2016 INFECTIOUS DISEASE FOLLOWUP NOTE: REASON FOR FOLLOWUP: Swollen, tender right wrist of unknown etiology. INTERVAL HISTORY: Over the past couple of days the patient reports there has been some slow improvement in her right wrist. It continues to be somewhat painful though, especially along the ulnar portion but she does note some increased range of motion and gradually less pain. She has had no fevers, chills, or sweats and reports overall she is feeling better except for her ongoing abdominal distention. PHYSICAL EXAMINATION: Reveals an afebrile woman. Temperature 36.7, pulse 55, respiratory rate 20, blood pressure 121/64. She is saturating well on room air and appears more comfortable than when I saw her a couple of days ago. Her oral cavity is unremarkable. Eyes without conjunctivitis. Lungs fairly clear anteriorly. Abdomen is distended with ascites as before and some mild tenderness. The right wrist is neither warm nor erythematous. There is still some mild to moderate tenderness along the ulnar aspect of the wrist itself. She has restricted range of motion, especially flexion and extension. LABORATORIES: Include white count 3200, platelets 28,000. Creatinine 1.81. Procalcitonin 0.22, which is identical to what is was a few days ago. Peritoneal fluid was tapped on the . Has a lot of red cells, only 8 white cells. Micro studies include a C. diff just done this morning which is negative, and a MRSA of the nares which is negative. IMAGING: Continues. A bone scan of the wrist done to try and rule out osteo in the scaphoid bone shows abnormal tracer activity in all three phases of the wrist and hand which would be consistent with complex regional pain syndrome or, as we used to call it, reflex sympathetic dystrophy. IMPRESSION: My general impression is that the patient does not have an infection of her wrist, and I am inclined to agree with the orthopedic mgmt consultant in this regard. The patient's wrist is tender but the area of tenderness does not correspond to the subtle abnormality on the plain film of the wrist which was around the scaphoid bone. 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 There are case reports of reflex sympathetic dystrophy caused by IV placement, and it is interesting that this patient attributes the problems in her wrist to an IV she had placed in her wrist about seven weeks ago and the reflex sympathetic dystrophy idea certainly makes as much sense as the possibility of a very indolent infection. The patient remains on ceftriaxone secondary to her liver situation as a prophylaxis for spontaneous bacterial peritonitis, and I think it is reasonable to continue the ceftriaxone for the short course but I would not continue with a long course of antibiotics for infection in that wrist unless we have additional evidence of infection. RECOMMENDATIONS: 1. Will continue with ceftriaxone as long as there is some GI indication for it. 2. A tagged white cell scan of the wrist could be done to try and differentiate RSD from an indolent infection but at this point, I am inclined to think there is no infection. 3. Without a tagged white cell scan showing infection or an aspirate which has organisms and/or PCR-positive aspirate, I would not pursue a long course of antibiotics. 4. I will be out of town starting tonight continuing through the morning of September 14 when I will return to work. I can be reached by text or email about this or any other patient as needed.
[2016-09-08 13:40] VITALS: BP 148/73; PULSE 52; RESP 18; O2SAT 99
--- NOTE | 2016-09-08 13:51 | PCM.PNMED ---
Subjective Date of Service Sep 08, 2016 Subjective GASTROENTEROLOGY PROGRESS NOTE: Patient reports feeling sick last night and had a small emetic episode, but she denies hematemesis. She reports poor appetite but tolerates general diet well. She still has some burning epigastric pain with eating, but denies any nausea, vomiting, headache, fever, or chills at this point. She had another loose BM last night and it was black. C. diff is negative. Patient had an abdominal U/S this morning that showed moderate ascites. She was told to have a repeat paracentesis in a couple days. Exam Vital Signs Vital Sign - Last Date Time Temp Pulse Resp B/P Pulse Ox O2 Delivery O2 Flow Rate FiO2 09/08/16 05:57 36.7 55 20 121/64 95 Room Air 09/07/16 18:44 1.00 Intake and Output 09/07/16 09/07/16 09/08/16 Cumulative From/Thru 15:00 23:00 07:00 09/05/16 12:22 - 09/08/16 06:14 Intake Total 250 ml 494 ml 861 ml 7794 ml Output Total 400 ml 2850 ml Balance 250 ml 494 ml 461 ml 4944 ml Intake Oral 636 ml 1156 ml IV Total 50 ml 494 ml 225 ml 5066 ml Packed Cells 680 ml FFP 200 ml Platelets 200 ml 692 ml Output Urine Total 400 ml 1560 ml Urine/Stool Mix 1290 ml # Bowel Movements 1 6 Exam General: Alert and oriented. Elderly female lying on the bed in no acute distress. Eating macaroni and cheese with no issue. HEENT: NCAT. External ears without defect. EOMI. Sclera anicteric, but pale. Oral mucous membranes dry Respiratory: Clear to auscultation bilaterally with no crackles. Normal respiratory effort with no use of accessory muscles. Cardiovascular: Regular rate and rhythm. II/ systolic murmur noted. Abdomen: Soft, distended abdomen. Mild tenderness to palpation in the epigastric area. No guarding or rebound tenderness. Moderate ascites. Extremities: No edema, clubbing, cyanosis. Skin: Normal temperature, turgor, and texture. No jaundice. Neurological: Normal speech. IVs and Medications Medications Reviewed: Medications were reviewed in detail Lab and Diagnostics Result Diagram: 09/08/1619909/08/16 020 X-Rays, CTs and MRIs . X-RAY PICC LINE PLACEMENT BY NURSE IMPRESSION: Tip of PICC lies at the cavoatrial junction. Dictated by: Mehdi Cummings M.D. on 09/05/2016 at 17:41 Cardiac Echo Impressions . Echocardiogram Report Interpretation Summary: The left ventricle is mildly dilated. Left ventricular ejection fraction is estimated to be 40%. Apical and anteroseptal akinesis, inferoapical dyskinesis, c/w prior LAD infarct The right ventricle is mildly dilated. There is a pacemaker lead in the right ventricle. The left atrium is severely dilated. There is mild to moderate mitral regurgitation. There is no hemodynamically significant valvular aortic stenosis. There is moderate tricuspid regurgitation. The right ventricular systolic pressure is estimated at 51 mmHg assuming a right atrial pressure of 8 mm Hg. There is mild pulmonic regurgitation. There are large-sized bilateral pleural effusions noted. Electronically signed by: Yung Shahid on Additional Diagn[facility] . US ABDOMEN DOPPLER, LIMITED IMPRESSION: 1. Cirrhotic appearance of the liver in no discrete focal hepatic abnormality is seen. 2. Enlarged portal vein otherwise normal hepatoportal Doppler assessment. 3. Splenomegaly suggesting portal hypertension. 4. Bilateral renal cortical thinning. 5. Moderate ascites. Dictated by: Frank NAVARRO Interpreted: Edwin Biggs MD on 09/05/2016 at 15 :08 Esophagogastroduodenoscopy. IMPRESSION: 1. Large esophageal varices, status post band ligation x4. 2. Small esophageal varices. Sindhu Alvarado MD 09/05/16 1824 US GUIDED PARACENTESIS, PRIMARY FINDINGS: Access site: Right lower quadrant Needle: One-Step centesis catheter with introducer needle. Fluid volume and description: 4.1 L slightly bloody tinged peritoneal fluid. Fluid sent for diagnostic testing: Fluid sent for cytology, multiple chemistry panels and therapeutic drainage. Medications: 1% lidocaine for local anaesthesia. Complications: None. IMPRESSION: Successful ultrasound-guided paracentesis. Dictated by: Frank NAVARRO Interpreted: Magdalene Bello MD on 09/06/2016 at 16:55 Assessment & Plan This is a 80-year-old woman with cryptogenic cirrhosis, esophageal varices and ascites with frequent paracenteses presented with hematemesis and hematochezia. Her acute normocytic anemia is likely secondary to upper GI bleed from the esophageal varices s/p banding x 4. She was also found to have significant thrombocytopenia of 25 that required platelet transfusion. She is Child-Casas class B and MELD score is 16. s/p EGD on 09/05/2016 IMPRESSION: 1. Large esophageal varices, status post band ligation x4. 2. Small esophageal varices. RECOMMENDATIONS: - Patient's melenic stools is likely residual from the variceal bleeding. - Continue to monitor serial hematologic parameter testing. We will defer the transfusion plan to the primary care team, but her hemoglobin goal should be in the 7-9 range. - Ideally, we would like to keep her platelet level of greater than 50,000. Continue to follow with Hematology for further recommendations. - Patient received 3 days of Ceftriaxone 2g for SBP prophylaxis. Her ascitic fluid PMN count is 9. Thus will discontinue Ceftriaxone. - Discontinue Octreotide ggt at 2130 tonight 09/08/16 for a total of 72 hours. - Moderate ascites despite large volume paracentesis 2 days ago. Recommend repeat paracentesis if symptomatic. Consider palliative care consult. - Continue Protonix 40mg PO and Carafate 1g PO QID. Can consider holding PPI to see if platelet count improves. - Advised the patient to sit at the chair while eating to prevent acid reflux. - Patient should have a repeat EGD with possible additional banding in 2 weeks after discharge. - Follow up with Dr. Thakur as outpatient. Thank you for allowing us to participate in this patient's care. We will continue to follow. Please do not hesitate to contact us for any question or concern. Pain Evaluation: Adequate Pain Control GI Prophylaxis: Proton Pump Inhibitor VTE Prophylaxis: SCDs VTE Mechanical Devices: Intermittant Pneumatic CD Resuscitation Status: DNR/DNI:Do Not Resuscitate/Intubate Attending Statement pt seen and examined with resident physician agree with her note above Ben Soriano DO Sep 08, 2016 13:51 Sindhu Alvarado MD Sep 11, 2016 10:36 Ben Soriano DO Sep 08, 2016 13:51
--- NOTE | 2016-09-08 16:43 | PCM.PNMED ---
Subjective Date of Service Sep 08, 2016 Subjective Patient feeling better overall. Hemoglobin remained stable. No vomiting. No dark stool. Right wrist pain improved. Afebrile. Exam Vital Signs Vital Sign - Last Date Time Temp Pulse Resp B/P Pulse Ox O2 Delivery O2 Flow Rate FiO2 09/08/16 13:40 36.6 52 18 148/73 99 Room Air 09/07/16 18:44 1.00 Intake and Output 09/07/16 09/07/16 09/08/16 Cumulative From/Thru 15:00 23:00 07:00 09/05/16 12:22 - 09/08/16 06:14 Intake Total 250 ml 494 ml 861 ml 7794 ml Output Total 400 ml 2850 ml Balance 250 ml 494 ml 461 ml 4944 ml Intake Oral 636 ml 1156 ml IV Total 50 ml 494 ml 225 ml 5066 ml Packed Cells 680 ml FFP 200 ml Platelets 200 ml 692 ml Output Urine Total 400 ml 1560 ml Urine/Stool Mix 1290 ml # Bowel Movements 1 6 Exam General: Elderly female in no acute distress laying in hospital but appropriately interactive. HEENT: Normocephalic, atraumatic. External ears without defect. Pupils equal, round, and reactive to light and accommodation. Pale sclera. Neck: No jugular venous distension. Cardiovascular: Regular rate and rhythm with soft systolic murmur heard at left and right 2nd intercostal/sternal border Pulmonary: Clear to auscultation bilaterally with no crackles. Normal respiratory effort with no use of accessory muscles. Abdomen: Distended abdomen, soft palpation 4 quadrants. Mildly tender to palpation. Significant ascites, fluid wave appreciated Extremities: No clubbing, cyanosis. Lower extremity edema bilaterally to ankles. Right wrist slightly tender to palpation. not warm or red Skin: Normal temperature, turgor, and texture. Neurological: Cranial nerves grossly intact. Psychiatric: Normal mood and affect. Alert and oriented to person, place, and time. IVs and Medications Medications Reviewed: Medications were reviewed in detail Lab and Diagnostics Result Diagram: 09/08/1619909/08/16 020 X-Rays, CTs and MRIs . X-RAY PICC LINE PLACEMENT BY NURSE IMPRESSION: Tip of PICC lies at the cavoatrial junction. Dictated by: Mehdi Cummings M.D. on 09/05/2016 at 17:41 PROCEDURE: NM BONE SCAN THREE PHASE RADIOPHARMACEUTICAL: 26.3 mCi Tc-99m MDP IV. INDICATIONS: RIGHT WRIST PAIN TECHNIQUE: Multiple bone scintigrams were obtained after intravenous injection of Tc-99m MDP, including flow, blood pool, and delayed images centered to the region of interest. COMPARISON: [facility], CR, XR WRIST 3VW RT, 09/06/2016, 9:25. FINDINGS: Immediate blood flow images demonstrate diffuse increased radiotracer involving the distal right forearm, the right wrist and the first second third and fourth DIP joints. Intermediate blood pool images demonstrate diffuse increased radiotracer in the distal right forearm, right wrist and first, second or third and fourth DIP joints. Delayed images demonstrate diffuse, increased radiotracer uptake involving the carpal bones, distal radius, distal ulna and first, second, third and fourth DIP joints. Finding is most suspicious for complex regional pain syndrome, however finding is nonspecific and infectious process cannot be completely excluded. Recommend nuclear medicine tagged white cell scan if there is clinical concern for cellulitis with osteomyelitis. IMPRESSION: Abnormal radiotracer activity in all 3 phases involving the distal radius, distal ulna, the carpal bones of the wrist and DIP joints of the hand most suspicious for a complex regional pain syndrome, however nuclear medicine tagged white cell scan is warranted if there is clinical concern for cellulitis with osteomyelitis. Dictated by: Magdalene Bello MD, PhD on 09/07/2016 at 15:39 Cardiac Echo Impressions . Echocardiogram Report Interpretation Summary: The left ventricle is mildly dilated. Left ventricular ejection fraction is estimated to be 40%. Apical and anteroseptal akinesis, inferoapical dyskinesis, c/w prior LAD infarct The right ventricle is mildly dilated. There is a pacemaker lead in the right ventricle. The left atrium is severely dilated. There is mild to moderate mitral regurgitation. There is no hemodynamically significant valvular aortic stenosis. There is moderate tricuspid regurgitation. The right ventricular systolic pressure is estimated at 51 mmHg assuming a right atrial pressure of 8 mm Hg. There is mild pulmonic regurgitation. There are large-sized bilateral pleural effusions noted. Electronically signed by: Yung Shahid on [facility] . US ABDOMEN DOPPLER, LIMITED IMPRESSION: 1. Cirrhotic appearance of the liver in no discrete focal hepatic abnormality is seen. 2. Enlarged portal vein otherwise normal hepatoportal Doppler assessment. 3. Splenomegaly suggesting portal hypertension. 4. Bilateral renal cortical thinning. 5. Moderate ascites. Dictated by: Frank NAVARRO Interpreted: Edwin Biggs MD on 09/05/2016 at 15 :08 Esophagogastroduodenoscopy. IMPRESSION: 1. Large esophageal varices, status post band ligation x4. 2. Small esophageal varices. Sindhu Alvarado MD 09/05/16 1824 US GUIDED PARACENTESIS, PRIMARY FINDINGS: Access site: Right lower quadrant Needle: One-Step centesis catheter with introducer needle. Fluid volume and description: 4.1 L slightly bloody tinged peritoneal fluid. Fluid sent for diagnostic testing: Fluid sent for cytology, multiple chemistry panels and therapeutic drainage. Medications: 1% lidocaine for local anaesthesia. Complications: None. IMPRESSION: Successful ultrasound-guided paracentesis. Dictated by: Farnk NAVARRO Interpreted: Magdalene Bello MD on 09/06/2016 at 16:55 Assessment & Plan 80-year-old female past medical history of cryptogenic cirrhosis pancytopenia esophageal varices admitted for hematemesis and hematochezia. From ED C PICC line placement followed by GI upper and lower endoscopy for source identification. # Gastrointestinal bleed. Acute Present on admission. Ongoing - GI following - EGD showed Large esophageal varices, status post band ligation x4 - No NG or OG tube placement - Has already received 3 units PRBCs, - Continue to follow H&H, transfuse if hemoglobin less than 8 - Continue octreotide - per GI recommendation. We will discontinue tonight. -Repeat endoscopy and banding in 2 weeks -Continue Protonix 40mg PO and Carafate 1g PO QID. Continue PPI. We will consider stopping PPI to see if platelet improves as as per GI - Advance diet # Cryptogenic cirrhosis. Chronic. Present on admission. Ongoing - Continue octreotide as above - Nadolol 40mg daily. Lowered dose Child-Pug class B # Blood loss anemia. Present on admission. Acute on chronic. Ongoing - Transfuse threshold as above # Pancytopenia. Present on admission. Acute. Ongoing - Hematology oncology following, recommendations appreciated - Transfuse platelets, replete if less than 50,000 - 4 units platelets thus far - Per heme/onc recommendations: - Continue home Promacta #Abdominal ascites. Present on admission. Ongoing. Chronic. - At baseline receives bimonthly paracentesis taking approximately 8 L off each time - Scheduled to have paracentesis yesterday prior to admission - Paracentesis 09/06/2016, 4 L fluid removed -will discuss with IR re Pleurex placement #Possible cellulitis of right wrist. Present on admission. Ongoing - Infectious disease following, recommendations are appreciated - CXR shows possible osteomyelitis - Nuclear medicine scan consistent with regional pain syndrome - Ceftriaxone 2 g daily - Continue to monitor #Hypertension. Chronic. Present admission. Ongoing - Hold home furosemide 40 mg by mouth daily -Paracentesis as above #Hyperlipidemia. Chronic. Present admission. Ongoing - Hold home atorvastatin 20 mg by mouth daily #Diabetes type II. Chronic. Present admission. Ongoing - Correctional scale insulin - A1c 6.1 #Hypothyroidism. Chronic. Present on admission. Ongoing - resume home levothyroxine 200 g #Chronic kidney disease. Present on admission. Ongoing - Avoid nephrotoxic agents - IV hydration 100 mL normal saline per hour after blood transfusion completion - Creatinine remains elevated though trending down - Continue to monitor Disposition: Anticipate additional 1-2 hospital days GI Prophylaxis: Proton Pump Inhibitor VTE Prophylaxis: SCDs VTE Mechanical Devices: Intermittant Pneumatic CD Resuscitation Status: DNR/DNI:Do Not Resuscitate/Intubate Rex Rodriguez MD Sep 08, 2016 16:42
--- NOTE | 2016-09-08 17:47 | PROG NOTE ---
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 She was hospitalized with GI bleeding. She had banding of multiple esophageal varices. She has had significant right wrist pain. Bone scan earlier today showed abnormal radiotracer activity in all three phases involving the distal radius, distal ulna, the carpal bones of the wrist, and DIP joints of the right hand, concerning for cellulitis with osteomyelitis. Abdominal ultrasound continues to show ascites within the upper abdomen. She has significant abdominal distention, which can be quite discomforting. OBJECTIVE: Vitals: T 36.6, P 52, R 18, BP 148/73, O2 saturation 99% on room air. HEENT: Conjunctivae pale. Mucous membranes moist. Chest: Decreased at the bases. Cardiac exam: Regular rate and rhythm. Abdomen distended with ascites. Liver edge remains firm. Extremities: Bilaterally easily reducible inguinal hernias, 2+ lower extremity edema, 1+ distal pulses. LABORATORIES: WBC 3.2, hemoglobin 8.7, hematocrit 28.2%, platelets 28,000. Sodium 138, potassium 4.7, BUN 55, creatinine 1.81, glucose 134, AST 13, ALT 7, alkaline phosphatase 63. ASSESSMENT AND PLAN: 1. Pancytopenia in the setting of cryptogenic cirrhosis with splenomegaly and esophageal varices, exacerbated by renal insufficiency: The patient has a history of recurrent portal vein thrombosis. She is on Promacta 25 mg by mouth each Monday, Monday and Monday. Continue current dosing. No definite indications for additional transfusion support, except for platelet transfusion if further paracentesis is contemplated. 2. Gastrointestinal bleed: Continue to monitor H and H. The patient is on octreotide per Gastroenterology and proton pump inhibitor with Protonix 40 mg daily plus Carafate 4 times daily.
--- NOTE | 2016-09-08 18:17 | NUR ---
Diarrhea The pt is having frequent loose stools throughout the shift. Stool sample was obtained, it was negative for c. diff. The pt's bottom is red, raw, and blanchable. Applied barrier cream.
[2016-09-08] MEDS ORDERED: Octreotide Inj 500 MCG in 0.9% Sodium Chloride 100 ML IV SCH (19:30)
[2016-09-08 20:33] VITALS: BP 114/65; PULSE 89; RESP 18; O2SAT 93
[2016-09-08] MEDS: ALPRAZolam 0.5 mg Tablet PO PRN (22:30)
[2016-09-09] VITALS (8 sets, daily range): BP systolic 105–154; BP diastolic 56–74; PULSE 52–56; RESP 16–28; O2SAT 92–99
[2016-09-09] MEDS: fentaNYL-PF 50 mCg/mL 2 mL Inj IVPUSH PRN ×5 (02:50→22:20)
--- NOTE | 2016-09-09 06:26 | NUR ---
Uneventful night Pt slept well most if the night, received pain medication for c/o abdominal and back pain. Pt continues to have loose stools.
[2016-09-09] MEDS: Sucralfate 1,000 mg Tablet PO SCH ×4 (06:43→22:12)
[2016-09-09] MEDS: Insulin LISPRO 300 Unit/3 mL Inj SUBQ SCH ×4 (07:58→22:00)
[2016-09-09 08:01] LABS: BASOPHILS % (AUTO) 0.6 % (0-3); EOSINOPHILS % (AUTO) 3.5 % (0-5); MONOCYTES % (AUTO) 8.7 % (4-12); Mean Corpuscular Hemoglobin 28.7 pg (27.0-35.0); Mean Corpuscular Volume 93.6 fL (81-100); NEUTROPHILS % (AUTO) 76.4 % (40-74)
[2016-09-09 08:20] LABS: Platelet Count 29 bil/L (150-400)
[2016-09-09 08:21] LABS: Magnesium 1.7 mg/dL (1.6-2.6); Phosphorus 3.9 mg/dL (2.5-4.9)
[2016-09-09] MEDS: ELTROMBOPAG 25 MG PO SCH (08:30)
[2016-09-09] MEDS: Pantoprazole 40 mg ER24 Tablet PO SCH (09:02)
[2016-09-09] MEDS ORDERED: 0.9% Sodium Chloride 250 ML IV ONE (10:30)
--- NOTE | 2016-09-09 12:30 | NUR ---
Palliative care note D/A: Palliative care referral received from Dr. Rodriguez. Pt is a 80 year old female admitted for cryptogenic cirrhosis, pancytopenia (requiring blood transfusions) and esophageal varices. She has been getting biweekly paracentecis with Dr. Barron. Pt is noted to live in an apt in [place] with her dtr. Dtr is noted to be Lucas Stratton and can be reached at [phone]. Referral is for goals of care. Dr. Sosa to discuss with Dr. Rodriguez. P: Palliative care to follow. Alena NAIK, CCM
--- NOTE | 2016-09-09 12:54 | PCM.PNMED ---
Subjective Date of Service Sep 09, 2016 Subjective Feeling better overall. Awaiting therapeutic paracentesis today. No dark stool. Right wrist pain improved. Pancytopenia/Thrombocytopenia stable. Patient is not getting her promecta 25 mg MWF . Family member to bring medication from home. Exam Vital Signs Vital Sign - Last Date Time Temp Pulse Resp B/P Pulse Ox O2 Delivery O2 Flow Rate FiO2 09/09/16 12:45 36.8 52 20 154/73 98 Room Air 09/07/16 18:44 1.00 Intake and Output 09/08/16 09/08/16 09/09/16 Cumulative From/Thru 15:00 23:00 07:00 09/05/16 12:22 - 09/09/16 06:20 Intake Total 730 ml 400 ml 8924 ml Output Total 75 ml 2925 ml Balance 730 ml 325 ml 5999 ml Intake Oral 518 ml 400 ml 2074 ml IV Total 212 ml 5278 ml Packed Cells 680 ml FFP 200 ml Platelets 692 ml Output Urine Total 75 ml 1635 ml Urine/Stool Mix 1290 ml # Voids 3 2 5 # Bowel Movements 5 3 14 Exam General: Elderly female in no acute distress laying in hospital but appropriately interactive. HEENT: Normocephalic, atraumatic. External ears without defect. Pupils equal, round, and reactive to light and accommodation. Pale sclera. Neck: No jugular venous distension. Cardiovascular: Regular rate and rhythm with soft systolic murmur heard at left and right 2nd intercostal/sternal border Pulmonary: Clear to auscultation bilaterally with no crackles. Normal respiratory effort with no use of accessory muscles. Abdomen: Distended abdomen, soft palpation 4 quadrants. Mildly tender to palpation. Significant ascites, fluid wave appreciated Extremities: No clubbing, cyanosis. Lower extremity edema bilaterally to ankles. Right wrist slightly tender to palpation. not warm or red Skin: Normal temperature, turgor, and texture. Neurological: Cranial nerves grossly intact. Psychiatric: Normal mood and affect. Alert and oriented to person, place, and time. IVs and Medications Medications Reviewed: Medications were reviewed in detail Lab and Diagnostics Result Diagram: 09/09/16 0750 09/09/16 0750 X-Rays, CTs and MRIs . X-RAY PICC LINE PLACEMENT BY NURSE IMPRESSION: Tip of PICC lies at the cavoatrial junction. Dictated by: Mehdi Cummings M.D. on 09/05/2016 at 17:41 PROCEDURE: NM BONE SCAN THREE PHASE RADIOPHARMACEUTICAL: 26.3 mCi Tc-99m MDP IV. INDICATIONS: RIGHT WRIST PAIN TECHNIQUE: Multiple bone scintigrams were obtained after intravenous injection of Tc-99m MDP, including flow, blood pool, and delayed images centered to the region of interest. COMPARISON: [facility], CR, XR WRIST 3VW RT, 09/06/2016, 9:25. FINDINGS: Immediate blood flow images demonstrate diffuse increased radiotracer involving the distal right forearm, the right wrist and the first second third and fourth DIP joints. Intermediate blood pool images demonstrate diffuse increased radiotracer in the distal right forearm, right wrist and first, second or third and fourth DIP joints. Delayed images demonstrate diffuse, increased radiotracer uptake involving the carpal bones, distal radius, distal ulna and first, second, third and fourth DIP joints. Finding is most suspicious for complex regional pain syndrome, however finding is nonspecific and infectious process cannot be completely excluded. Recommend nuclear medicine tagged white cell scan if there is clinical concern for cellulitis with osteomyelitis. IMPRESSION: Abnormal radiotracer activity in all 3 phases involving the distal radius, distal ulna, the carpal bones of the wrist and DIP joints of the hand most suspicious for a complex regional pain syndrome, however nuclear medicine tagged white cell scan is warranted if there is clinical concern for cellulitis with osteomyelitis. Dictated by: Magdalene Bello MD, PhD on 09/07/2016 at 15:39 Cardiac Echo Impressions . Echocardiogram Report Interpretation Summary: The left ventricle is mildly dilated. Left ventricular ejection fraction is estimated to be 40%. Apical and anteroseptal akinesis, inferoapical dyskinesis, c/w prior LAD infarct The right ventricle is mildly dilated. There is a pacemaker lead in the right ventricle. The left atrium is severely dilated. There is mild to moderate mitral regurgitation. There is no hemodynamically significant valvular aortic stenosis. There is moderate tricuspid regurgitation. The right ventricular systolic pressure is estimated at 51 mmHg assuming a right atrial pressure of 8 mm Hg. There is mild pulmonic regurgitation. There are large-sized bilateral pleural effusions noted. Electronically signed by: Yung Shahid on Additional [facility] . US ABDOMEN DOPPLER, LIMITED IMPRESSION: 1. Cirrhotic appearance of the liver in no discrete focal hepatic abnormality is seen. 2. Enlarged portal vein otherwise normal hepatoportal Doppler assessment. 3. Splenomegaly suggesting portal hypertension. 4. Bilateral renal cortical thinning. 5. Moderate ascites. Dictated by: Frank NAVARRO Interpreted: Edwin Biggs MD on 09/05/2016 at 15 :08 Esophagogastroduodenoscopy. IMPRESSION: 1. Large esophageal varices, status post band ligation x4. 2. Small esophageal varices. Sindhu Alvarado MD 09/05/16 1824 US GUIDED PARACENTESIS, PRIMARY FINDINGS: Access site: Right lower quadrant Needle: One-Step centesis catheter with introducer needle. Fluid volume and description: 4.1 L slightly bloody tinged peritoneal fluid. Fluid sent for diagnostic testing: Fluid sent for cytology, multiple chemistry panels and therapeutic drainage. Medications: 1% lidocaine for local anaesthesia. Complications: None. IMPRESSION: Successful ultrasound-guided paracentesis. Dictated by: Frank NAVARRO Interpreted: Magdalene Bello MD on 09/06/2016 at 16:55 Assessment & Plan 80-year-old female past medical history of cryptogenic cirrhosis pancytopenia esophageal varices admitted for hematemesis and hematochezia. From ED C PICC line placement followed by GI upper and lower endoscopy for source identification. # Gastrointestinal bleed. Acute Present on admission. Ongoing - GI following - EGD showed Large esophageal varices, status post band ligation x4 - No NG or OG tube placement - Has already received 3 units PRBCs, - Continue to follow H&H, transfuse if hemoglobin less than 8 - Completed octreotide - -Repeat endoscopy and banding in 2 weeks per GI -Continue Protonix 40mg PO and Carafate 1g PO QID. Continue PPI. We will consider stopping PPI to see if platelet improves if platelets continue to drop as per GI - Advance diet # Cryptogenic cirrhosis. Chronic. Present on admission. Ongoing - Continue octreotide as above - Nadolol 40mg daily. Lowered dose to 20 mg per day. Child-Pug class B # Blood loss anemia. Present on admission. Acute on chronic. Ongoing - Transfuse threshold as above # Pancytopenia. Present on admission. Acute. Ongoing - Hematology oncology following, recommendations appreciated - Transfuse platelets, replete if less than 50,000 - 4 units platelets thus far .2 more units requested today 09/09 for paracentesis - Per heme/onc recommendations: -Patient is not getting her promecta 25 mg MWF . Family member to bring medication from home. - Continue home Promacta #Abdominal ascites. Present on admission. Ongoing. Chronic. - At baseline receives bimonthly paracentesis taking approximately 8 L off each time - Paracentesis 09/06/2016, 4 L fluid removed. Requested repeat paracentesis today 09/09. Volume not adequate for therapeutic paracentesis -Initially considered Pleurex placement . Patient gets paracentesis only 2 times per month. her distension is not tense at the moment. Patient has thrombocytopenia/pancytopenia and other comorbidities. I feel She will be at increased risk of bleeding and getting infection from Pleurex than twice a month paracentesis. May consider Pleurx placement outpatient if she requires more frequent paracentesis. -Completed 3 day ceftriaxone for SBP prophylaxis #Initially suspected cellulitis of right wrist. Present on admission. Ruled out - Infectious disease following, recommendations are appreciated - CXR shows possible osteomyelitis - Nuclear medicine scan consistent with regional pain syndrome -Completed Ceftriaxone 2 g daily - Continue to monitor #Hypertension. Chronic. Present admission. Ongoing -Hold home furosemide 40 mg by mouth daily -Paracentesis as above #Hyperlipidemia. Chronic. Present admission. Ongoing - Hold home atorvastatin 20 mg by mouth daily #Diabetes type II. Chronic. Present admission. Ongoing - Correctional scale insulin - A1c 6.1 #Hypothyroidism. Chronic. Present on admission. Ongoing - resume home levothyroxine 200 g #BBEE on Chronic kidney disease. Present on admission. Ongoing - Avoid nephrotoxic agents - IV hydration 100 mL normal saline - Creatinine remains elevated - Continue to monitor Disposition: Anticipate additional 1-2 hospital days GI Prophylaxis: Proton Pump Inhibitor VTE Prophylaxis: SCDs VTE Mechanical Devices: Intermittant Pneumatic CD Resuscitation Status: DNR/DNI:Do Not Resuscitate/Intubate Rex Rodriguez MD Sep 09, 2016 12:54
--- NOTE | 2016-09-09 13:35 | NUR ---
NUTRITION FOLLOW-UP: ASSESS: 80 yo F admitted to CCU for GI bleed. She is s/p upper endoscopy and found to have variceal bleeding. Pt is s/p paracentesis 09/06 and scheduled for therapeutic paracentesis today. PO intake is improving with pt eating 50-75% of meals today. PMHX: cryptogenic cirrhosis, pancytopenia, esophageal varices, renal insufficiency, DM LABS: Reviewed. BUN 56, Cr 2.04, Alb 3.4. MEDS: Reviewed. GI: BM x 3 today (09/09) CURRENT WTS: 64.4 kg. Admit wt: 64.9 kg. DIET: Heart Healthy, 2 GM NA. PO intake 50-75% EST. NEEDS: cirrhosis, CKD Kcals: 3988-2100 kcal/day (30-35 kcal/kg BW) Protein: 65-80 g/day (1.0-1.2 g/kg BW) NUTRITION DIAGNOSIS: 1.) Inadequate oral intake related to altered GI function as evidence by po intake of 0-75--IMPROVING. NUTRITION INTERVENTION: 1.) Will change supplements to ensure Enlive at lunch. MONITOR / EVAL: PO intake, GI, labs, weights, nutrition status. Continue to monitor per moderate nutrition risk guidelines.
--- NOTE | 2016-09-09 13:39 | PATH ---
SURGICAL PATHOLOGY Attending Physician:Miguelangel Bello MD CASE STATUS: Signed Out PATIENT NAME: FAMILIA SHELLEY PID: [id number] : 1935 DATE COLLECTED:09/06/2016 00:00 SPECIMEN: Peritoneal Fluid CLINICAL HISTORY: PERITONEAL FLUID No ICD-10 code given FINAL DIAGNOSIS: ASCITES FLUID: NEGATIVE FOR MALIGNANT CELLS. MESOTHELIAL CELLS AND INFLAMMATORY CELLS ARE PRESENT. ICD10 R18.8 GROSS DESCRIPTION: Received fresh on 09/07/2016 is approximately 2900 cc of cloudy pink fluid. Prepared are one cell block, one cytospin, and one thinprep slides. vo/hk ICD-9 CODES: CPT CODES: 1: 74613, 98978, 87851 Electronically Signed Out Arnie Leslie MD [facility]ology [facility] [address], [place] [address] Technical component performed at [facility], [facility] [address], [place], [address]
--- NOTE | 2016-09-09 14:16 | DRSVH ---
PROCEDURE: US ABDOMEN, LIMITED ([id number]) INDICATIONS: cirrhosis TECHNIQUE: Real-time focused scanning was performed of the abdomen, with image documentation. COMPARISON: [facility], , ABDOMEN LTD, 09/08/2016, 9:09. FINDINGS: Moderate amount of ascites is present, most notably within the upper abdomen and there are several bowel loops floating within the fluid within the inferior pelvis. IMPRESSION: Ascites present, predominantly within the upper abdomen and minimally within the pelvis w ith no change from prior exam. Volume not sufficient for therapeutic paracentesis. Dictated by: Frank Rosa [facility] Interpreted: Magdalene Bello MD on 09/09/2016 at 14:09 Transcribed by: MANJU on 09/09/2016 at 14:15 Approved by: Magdalene Bello MD, PhD on 09/09/2016 at 14:40
--- NOTE | 2016-09-09 14:28 | PCM.PNMED ---
Subjective Date of Service Sep 09, 2016 Subjective GASTROENTEROLOGY PROGRESS NOTE: The patient reports significant improvement of her symptoms today. She admits to some persistent epigastric dull pain and pressure, but reports normal BM with no hematochezia or melena. She tolerates the diet advance well and has no complaint today. Exam Vital Signs Vital Sign - Last Date Time Temp Pulse Resp B/P Pulse Ox O2 Delivery O2 Flow Rate FiO2 09/09/16 05:26 36.8 55 20 105/56 97 Room Air 09/07/16 18:44 1.00 Intake and Output 09/08/16 09/08/16 09/09/16 Cumulative From/Thru 15:00 23:00 07:00 09/05/16 12:22 - 09/09/16 06:20 Intake Total 730 ml 400 ml 8924 ml Output Total 75 ml 2925 ml Balance 730 ml 325 ml 5999 ml Intake Oral 518 ml 400 ml 2074 ml IV Total 212 ml 5278 ml Packed Cells 680 ml FFP 200 ml Platelets 692 ml Output Urine Total 75 ml 1635 ml Urine/Stool Mix 1290 ml # Voids 3 2 5 # Bowel Movements 5 3 14 Exam General: Alert and oriented. Elderly female lying on the bed in no acute distress. Eating macaroni and cheese with no issue. HEENT: NCAT. External ears without defect. EOMI. Sclera anicteric, but pale. Oral mucous membranes dry Respiratory: Clear to auscultation bilaterally with no crackles. Normal respiratory effort with no use of accessory muscles. Cardiovascular: Regular rate and rhythm. III/ systolic murmur noted. Abdomen: Soft, distended abdomen. Mild tenderness to palpation in the epigastric area. No guarding or rebound tenderness. Moderate ascites. Extremities: No edema, clubbing, cyanosis. Skin: Normal temperature, turgor, and texture. No jaundice. Neurological: Normal speech. IVs and Medications Medications Reviewed: Medications were reviewed in detail Lab and Diagnostics Result Diagram: 09/09/16 0750 09/09/16 0750 X-Rays, CTs and MRIs . X-RAY PICC LINE PLACEMENT BY NURSE IMPRESSION: Tip of PICC lies at the cavoatrial junction. Dictated by: Mehdi Cummings M.D. on 09/05/2016 at 17:41 PROCEDURE: NM BONE SCAN THREE PHASE RADIOPHARMACEUTICAL: 26.3 mCi Tc-99m MDP IV. INDICATIONS: RIGHT WRIST PAIN TECHNIQUE: Multiple bone scintigrams were obtained after intravenous injection of Tc-99m MDP, including flow, blood pool, and delayed images centered to the region of interest. COMPARISON: , CR, XR WRIST 3VW RT, 09/06/2016, 9:25. FINDINGS: Immediate blood flow images demonstrate diffuse increased radiotracer involving the distal right forearm, the right wrist and the first second third and fourth DIP joints. Intermediate blood pool images demonstrate diffuse increased radiotracer in the distal right forearm, right wrist and first, second or third and fourth DIP joints. Delayed images demonstrate diffuse, increased radiotracer uptake involving the carpal bones, distal radius, distal ulna and first, second, third and fourth DIP joints. Finding is most suspicious for complex regional pain syndrome, however finding is nonspecific and infectious process cannot be completely excluded. Recommend nuclear medicine tagged white cell scan if there is clinical concern for cellulitis with osteomyelitis. IMPRESSION: Abnormal radiotracer activity in all 3 phases involving the distal radius, distal ulna, the carpal bones of the wrist and DIP joints of the hand most suspicious for a complex regional pain syndrome, however nuclear medicine tagged white cell scan is warranted if there is clinical concern for cellulitis with osteomyelitis. Dictated by: Magdalene Bello MD, PhD on 09/07/2016 at 15:39 Cardiac Echo Impressions . Echocardiogram Report Interpretation Summary: The left ventricle is mildly dilated. Left ventricular ejection fraction is estimated to be 40%. Apical and anteroseptal akinesis, inferoapical dyskinesis, c/w prior LAD infarct The right ventricle is mildly dilated. There is a pacemaker lead in the right ventricle. The left atrium is severely dilated. There is mild to moderate mitral regurgitation. There is no hemodynamically significant valvular aortic stenosis. There is moderate tricuspid regurgitation. The right ventricular systolic pressure is estimated at 51 mmHg assuming a right atrial pressure of 8 mm Hg. There is mild pulmonic regurgitation. There are large-sized bilateral pleural effusions noted. Electronically signed by: Yung Shahid on [facility] . US ABDOMEN DOPPLER, LIMITED IMPRESSION: 1. Cirrhotic appearance of the liver in no discrete focal hepatic abnormality is seen. 2. Enlarged portal vein otherwise normal hepatoportal Doppler assessment. 3. Splenomegaly suggesting portal hypertension. 4. Bilateral renal cortical thinning. 5. Moderate ascites. Dictated by: Frank NAVARRO Interpreted: Edwin Biggs MD on 09/05/2016 at 15 :08 Esophagogastroduodenoscopy. IMPRESSION: 1. Large esophageal varices, status post band ligation x4. 2. Small esophageal varices. Sindhu Alvarado MD 09/05/16 1824 US GUIDED PARACENTESIS, PRIMARY FINDINGS: Access site: Right lower quadrant Needle: One-Step centesis catheter with introducer needle. Fluid volume and description: 4.1 L slightly bloody tinged peritoneal fluid. Fluid sent for diagnostic testing: Fluid sent for cytology, multiple chemistry panels and therapeutic drainage. Medications: 1% lidocaine for local anaesthesia. Complications: None. IMPRESSION: Successful ultrasound-guided paracentesis. Dictated by: Frank NAVARRO Interpreted: Magdalene Bello MD on 09/06/2016 at 16:55 Assessment & Plan This is a 80-year-old woman with cryptogenic cirrhosis, esophageal varices and ascites with frequent paracenteses presented with hematemesis and hematochezia. Her acute normocytic anemia is likely secondary to upper GI bleed from the esophageal varices s/p banding x 4. She is Child-Casas class B and MELD score is 16. s/p EGD on 09/05/2016 IMPRESSION: 1. Large esophageal varices, status post band ligation x4. 2. Small esophageal varices. RECOMMENDATIONS: - Continue to monitor serial hematologic parameter testing. We will defer the transfusion plan to the primary care team, but her hemoglobin goal should be in the 7-9 range. - Ideally, we would like to keep her platelet level of greater than 50,000. Continue to follow with Hematology for further recommendations. - Patient had 3 days of Ceftriaxone 2g for SBP prophylaxis. Her ascitic fluid PMN count was negative for infection. - She completed 72 hours of Octreotide ggt. - Moderate ascites despite large volume paracentesis. Recommend repeat paracentesis if symptomatic. - Please also consider adding Furosemide 40mg PO daily and Spironolactone 100mg daily to help with the fluid buildup. - Will check stool H. pylori. - Continue Protonix 40mg PO and Carafate 1g PO QID. - Advised the patient to sit at the chair while eating to prevent acid reflux. - Patient should have a repeat EGD with possible additional banding in 2 weeks after discharge. - Patient continues to decline TIPS. - Follow up with Dr. Thakur as outpatient. Thank you for allowing us to participate in this patient's care. Please do not hesitate to contact us for any question or concern. Pain Evaluation: Adequate Pain Control GI Prophylaxis: Proton Pump Inhibitor VTE Prophylaxis: SCDs VTE Mechanical Devices: Intermittant Pneumatic CD Resuscitation Status: DNR/DNI:Do Not Resuscitate/Intubate Attending Statement pt seen and examined agree with resident physician note consider trial of diuretics and follow BMP to see if she tolerates this would hold off on nadolol in setting of refractory ascites Ben Soriano DO Sep 09, 2016 11:13 Sindhu Alvarado MD Sep 11, 2016 10:46
--- NOTE | 2016-09-09 19:11 | NUR ---
Pain/Discomfort Pt reported occasional pain of 5-8/10 in abdomen to back during shift. Pain would be reduced to nothing with Fentanyl PRN administration. Pt also reports pain 5/10 d/t infection in R hand. Pt reports discomfort with distended abdomen/ascites with lack desire to eat.
[2016-09-10] MEDS: fentaNYL-PF 50 mCg/mL 2 mL Inj IVPUSH PRN ×2 (03:30→10:06)
[2016-09-10 04:36] VITALS: BP 122/50; PULSE 52; RESP 20; O2SAT 96
--- NOTE | 2016-09-10 06:18 | NUR ---
GI Pt c/o abdominal pain 5-10/22,as well as back pain, Fentanyl 25 Mcg IV given x3 per pt requests, pain resolved. Pt sleeping comfortably. Loose brown stoolx1, large,with some bright red blood on wipes and stool. Stool sample (H. Pylori) sent. Pt denies n/v/SOB/fever. Large and highly distended abdomen, abdomen soft, mild tenderness at upper quadrant. BT slightly hypoactive.
[2016-09-10] MEDS: Sucralfate 1,000 mg Tablet PO SCH ×4 (06:27→21:37)
[2016-09-10] MEDS: Pantoprazole 40 mg ER24 Tablet PO SCH (07:58)
[2016-09-10] MEDS: Insulin LISPRO 300 Unit/3 mL Inj SUBQ SCH ×4 (08:00→21:33)
[2016-09-10 08:09] VITALS: BP 161/75; PULSE 55
[2016-09-10 08:35] LABS: BASOPHILS % (AUTO) 0.3 % (0-3); EOSINOPHILS % (AUTO) 2.4 % (0-5); MONOCYTES % (AUTO) 5.4 % (4-12); Mean Corpuscular Hemoglobin 28.8 pg (27.0-35.0); Mean Corpuscular Volume 93.5 fL (81-100); NEUTROPHILS % (AUTO) 83.5 % (40-74)
[2016-09-10 08:37] LABS: Platelet Count 30 bil/L (150-400)
--- NOTE | 2016-09-10 08:37 | NUR ---
Critical lab Lab called and notify platelet count 30. Notified Dr Rodriguez and aware. no new orders.
[2016-09-10 09:12] LABS: Magnesium 1.7 mg/dL (1.6-2.6)
[2016-09-10] MEDS ORDERED: Albumin 25% 25 GM in IV Premix 1 EACH IV ONE (09:30)
--- NOTE | 2016-09-10 12:38 | PCM.PNMED ---
Subjective Date of Service Sep 10, 2016 Subjective No dark stool. Hemoglobin is stable. Bradycardia noted and nadolol dose lowered further. Exam Vital Signs Vital Sign - Last Date Time Temp Pulse Resp B/P Pulse Ox O2 Delivery O2 Flow Rate FiO2 09/10/16 08:30 Supplement Oxygen 09/10/16 08:09 55 161/75 09/10/16 04:36 36.8 20 96 09/07/16 18:44 1.00 Intake and Output 09/09/16 09/09/16 09/10/16 Cumulative From/Thru 15:00 23:00 07:00 09/05/16 12:22 - 09/10/16 06:37 Intake Total 1197 ml 1198 ml 58110 ml Output Total 745 ml 900 ml 4570 ml Balance 452 ml 298 ml 6749 ml Intake Oral 836 ml 500 ml 3410 ml IV Total 361 ml 698 ml 6337 ml Packed Cells 680 ml FFP 200 ml Platelets 692 ml Output Urine Total 745 ml 900 ml 3280 ml Urine/Stool Mix 1290 ml # Voids 5 # Bowel Movements 6 3 23 Exam General: Elderly female in no acute distress laying in hospital but appropriately interactive. HEENT: Normocephalic, atraumatic. External ears without defect. Pupils equal, round, and reactive to light and accommodation. Pale sclera. Neck: No jugular venous distension. Cardiovascular: Regular rate and rhythm with soft systolic murmur heard at left and right 2nd intercostal/sternal border Pulmonary: Clear to auscultation bilaterally with no crackles. Normal respiratory effort with no use of accessory muscles. Abdomen: Distended abdomen, soft palpation 4 quadrants. Mildly tender to palpation. Significant ascites, fluid wave appreciated Extremities: No clubbing, cyanosis. Lower extremity edema bilaterally to ankles. Right wrist slightly tender to palpation. not warm or red Skin: Normal temperature, turgor, and texture. Neurological: Cranial nerves grossly intact. Psychiatric: Normal mood and affect. Alert and oriented to person, place, and time. IVs and Medications Medications Reviewed: Medications were reviewed in detail Lab and Diagnostics Result Diagram: 09/10/1681409/10/16814 X-Rays, CTs and MRIs . X-RAY PICC LINE PLACEMENT BY NURSE IMPRESSION: Tip of PICC lies at the cavoatrial junction. Dictated by: Mehdi Cummings M.D. on 09/05/2016 at 17:41 PROCEDURE: NM BONE SCAN THREE PHASE RADIOPHARMACEUTICAL: 26.3 mCi Tc-99m MDP IV. INDICATIONS: RIGHT WRIST PAIN TECHNIQUE: Multiple bone scintigrams were obtained after intravenous injection of Tc-99m MDP, including flow, blood pool, and delayed images centered to the region of interest. COMPARISON: [facility], CR, XR WRIST 3VW RT, 09/06/2016, 9:25. FINDINGS: Immediate blood flow images demonstrate diffuse increased radiotracer involving the distal right forearm, the right wrist and the first second third and fourth DIP joints. Intermediate blood pool images demonstrate diffuse increased radiotracer in the distal right forearm, right wrist and first, second or third and fourth DIP joints. Delayed images demonstrate diffuse, increased radiotracer uptake involving the carpal bones, distal radius, distal ulna and first, second, third and fourth DIP joints. Finding is most suspicious for complex regional pain syndrome, however finding is nonspecific and infectious process cannot be completely excluded. Recommend nuclear medicine tagged white cell scan if there is clinical concern for cellulitis with osteomyelitis. IMPRESSION: Abnormal radiotracer activity in all 3 phases involving the distal radius, distal ulna, the carpal bones of the wrist and DIP joints of the hand most suspicious for a complex regional pain syndrome, however nuclear medicine tagged white cell scan is warranted if there is clinical concern for cellulitis with osteomyelitis. Dictated by: Magdalene Bello MD, PhD on 09/07/2016 at 15:39 Cardiac Echo Impressions . Echocardiogram Report Interpretation Summary: The left ventricle is mildly dilated. Left ventricular ejection fraction is estimated to be 40%. Apical and anteroseptal akinesis, inferoapical dyskinesis, c/w prior LAD infarct The right ventricle is mildly dilated. There is a pacemaker lead in the right ventricle. The left atrium is severely dilated. There is mild to moderate mitral regurgitation. There is no hemodynamically significant valvular aortic stenosis. There is moderate tricuspid regurgitation. The right ventricular systolic pressure is estimated at 51 mmHg assuming a right atrial pressure of 8 mm Hg. There is mild pulmonic regurgitation. There are large-sized bilateral pleural effusions noted. Electronically signed by: Yung Shahid on [facility] . US ABDOMEN DOPPLER, LIMITED IMPRESSION: 1. Cirrhotic appearance of the liver in no discrete focal hepatic abnormality is seen. 2. Enlarged portal vein otherwise normal hepatoportal Doppler assessment. 3. Splenomegaly suggesting portal hypertension. 4. Bilateral renal cortical thinning. 5. Moderate ascites. Dictated by: Frank NAVARRO Interpreted: Edwin Biggs MD on 09/05/2016 at 15 :08 Esophagogastroduodenoscopy. IMPRESSION: 1. Large esophageal varices, status post band ligation x4. 2. Small esophageal varices. Sindhu Alvarado MD 09/05/16 1824 US GUIDED PARACENTESIS, PRIMARY FINDINGS: Access site: Right lower quadrant Needle: One-Step centesis catheter with introducer needle. Fluid volume and description: 4.1 L slightly bloody tinged peritoneal fluid. Fluid sent for diagnostic testing: Fluid sent for cytology, multiple chemistry panels and therapeutic drainage. Medications: 1% lidocaine for local anaesthesia. Complications: None. IMPRESSION: Successful ultrasound-guided paracentesis. Dictated by: Frank NAVARRO Interpreted: Magdalene Bello MD on 09/06/2016 at 16:55 Assessment & Plan 80-year-old female past medical history of cryptogenic cirrhosis pancytopenia esophageal varices admitted for hematemesis and hematochezia. From ED C PICC line placement followed by GI upper and lower endoscopy for source identification. # Gastrointestinal bleed from esophageal varices. Acute Present on admission. Ongoing - GI following - EGD showed Large esophageal varices, status post band ligation x4 - No NG or OG tube placement - Has already received 3 units PRBCs, - Continue to follow H&H, transfuse if hemoglobin less than 8 - Completed 72h octreotide - -Repeat endoscopy and banding in 2 weeks per GI -Continue Protonix 40mg PO and Carafate 1g PO QID. Continue PPI. We will consider stopping PPI to see if platelet improves if platelets continue to drop as per GI - Advance diet -patient refuses TIPS # Cryptogenic cirrhosis. Chronic. Present on admission. Ongoing - Continue octreotide as above - Started Nadolol 40mg daily. Lowered dose to 20 mg per day. Lowered dose further to 10 mg pill day on 09/10. Child-Pug class B # Blood loss anemia. Present on admission. Acute on chronic. Ongoing - Transfuse threshold as above #BEBE -Creatinine slowly going up to 2.18 -Patient clinically dehydrated. will give albumin 25 g today -Follow-up BMP tomorrow -will continue aldactone and lasix # Pancytopenia. Present on admission. Acute. Ongoing - Hematology oncology following, recommendations appreciated - Transfuse platelets, replete if less than 50,000 - 4 units platelets thus far .2 more units requested today 09/09 for paracentesis - Per heme/onc recommendations: -Patient is not getting her promecta 25 mg MWF . Family member to bring medication from home. - Continue home Promacta when available #Abdominal ascites. Present on admission. Ongoing. Chronic. - At baseline receives bimonthly paracentesis taking approximately 8 L off each time - Paracentesis 09/06/2016, 4 L fluid removed. Requested repeat paracentesis today 09/09. Volume not adequate for therapeutic paracentesis -Initially considered Pleurex placement . Patient gets paracentesis only 2 times per month. her distension is not tense at the moment. Patient has thrombocytopenia/pancytopenia and other comorbidities. I feel She will be at increased risk of bleeding and getting infection from Pleurex than twice a month paracentesis. May consider Pleurx placement outpatient if she requires more frequent paracentesis. -Completed 3 day ceftriaxone for SBP prophylaxis -started aldactone 100 daily and lasix 40 mg daily #Initially suspected cellulitis of right wrist. Present on admission. Ruled out - Infectious disease following, recommendations are appreciated - CXR shows possible osteomyelitis - Nuclear medicine scan consistent with regional pain syndrome -Completed Ceftriaxone 2 g daily - Continue to monitor #Hypertension. Chronic. Present admission. Ongoing -Hold home furosemide 40 mg by mouth daily -Paracentesis as above #Hyperlipidemia. Chronic. Present admission. Ongoing - Hold home atorvastatin 20 mg by mouth daily #Diabetes type II. Chronic. Present admission. Ongoing - Correctional scale insulin - A1c 6.1 #Hypothyroidism. Chronic. Present on admission. Ongoing - resume home levothyroxine 200 g #BEBE on Chronic kidney disease. Present on admission. Ongoing - Avoid nephrotoxic agents - IV hydration 100 mL normal saline - Creatinine remains elevated - Continue to monitor Disposition: Anticipate additional 1-2 hospital days GI Prophylaxis: Proton Pump Inhibitor VTE Prophylaxis: SCDs VTE Mechanical Devices: Intermittant Pneumatic CD Resuscitation Status: DNR/DNI:Do Not Resuscitate/Intubate Rex Rodriguez MD Sep 10, 2016 12:38
--- NOTE | 2016-09-10 13:30 | NUR ---
[facility] signed
[2016-09-10 13:54] VITALS: BP 147/70; PULSE 55; RESP 18; O2SAT 97
--- NOTE | 2016-09-10 16:17 | PCM.PNMED ---
Subjective Date of Service Sep 10, 2016 Subjective no new complaints experience epigastric pain with regurgitation following meals no further melena Exam Vital Signs Vital Sign - Last Date Time Temp Pulse Resp B/P Pulse Ox O2 Delivery O2 Flow Rate FiO2 09/10/16 15:07 Supplement Oxygen 09/10/16 13:54 36.4 55 18 147/70 97 09/07/16 18:44 1.00 Intake and Output 09/09/16 09/09/16 09/10/16 Cumulative From/Thru 15:00 23:00 07:00 09/05/16 12:22 - 09/10/16 06:37 Intake Total 1197 ml 1198 ml 28706 ml Output Total 745 ml 900 ml 4570 ml Balance 452 ml 298 ml 6749 ml Intake Oral 836 ml 500 ml 3410 ml IV Total 361 ml 698 ml 6337 ml Packed Cells 680 ml FFP 200 ml Platelets 692 ml Output Urine Total 745 ml 900 ml 3280 ml Urine/Stool Mix 1290 ml # Voids 5 # Bowel Movements 6 3 23 Exam GEN- oriented to person, place and time HEENT- no icterus RESP-decreased breath sounds in bilateral bases [id number]-RRR Abdomen-distended, fluid wave present, non tender EXT- edema present Neuro- no asterixis Lab and Diagnostics Result Diagram: 09/10/16 0815 09/10/16 0815 X-Rays, CTs and MRIs . X-RAY PICC LINE PLACEMENT BY NURSE IMPRESSION: Tip of PICC lies at the cavoatrial junction. Dictated by: Mehdi Cummings M.D. on 09/05/2016 at 17:41 PROCEDURE: NM BONE SCAN THREE PHASE RADIOPHARMACEUTICAL: 26.3 mCi Tc-99m MDP IV. INDICATIONS: RIGHT WRIST PAIN TECHNIQUE: Multiple bone scintigrams were obtained after intravenous injection of Tc-99m MDP, including flow, blood pool, and delayed images centered to the region of interest. COMPARISON: [facility], CR, XR WRIST 3VW RT, 09/06/2016, 9:25. FINDINGS: Immediate blood flow images demonstrate diffuse increased radiotracer involving the distal right forearm, the right wrist and the first second third and fourth DIP joints. Intermediate blood pool images demonstrate diffuse increased radiotracer in the distal right forearm, right wrist and first, second or third and fourth DIP joints. Delayed images demonstrate diffuse, increased radiotracer uptake involving the carpal bones, distal radius, distal ulna and first, second, third and fourth DIP joints. Finding is most suspicious for complex regional pain syndrome, however finding is nonspecific and infectious process cannot be completely excluded. Recommend nuclear medicine tagged white cell scan if there is clinical concern for cellulitis with osteomyelitis. IMPRESSION: Abnormal radiotracer activity in all 3 phases involving the distal radius, distal ulna, the carpal bones of the wrist and DIP joints of the hand most suspicious for a complex regional pain syndrome, however nuclear medicine tagged white cell scan is warranted if there is clinical concern for cellulitis with osteomyelitis. Dictated by: Magdalene Bello MD, PhD on 09/07/2016 at 15:39 Cardiac Echo Impressions . Echocardiogram Report Interpretation Summary: The left ventricle is mildly dilated. Left ventricular ejection fraction is estimated to be 40%. Apical and anteroseptal akinesis, inferoapical dyskinesis, c/w prior LAD infarct The right ventricle is mildly dilated. There is a pacemaker lead in the right ventricle. The left atrium is severely dilated. There is mild to moderate mitral regurgitation. There is no hemodynamically significant valvular aortic stenosis. There is moderate tricuspid regurgitation. The right ventricular systolic pressure is estimated at 51 mmHg assuming a right atrial pressure of 8 mm Hg. There is mild pulmonic regurgitation. There are large-sized bilateral pleural effusions noted. Electronically signed by: Yung Shahid on [facility] . US ABDOMEN DOPPLER, LIMITED IMPRESSION: 1. Cirrhotic appearance of the liver in no discrete focal hepatic abnormality is seen. 2. Enlarged portal vein otherwise normal hepatoportal Doppler assessment. 3. Splenomegaly suggesting portal hypertension. 4. Bilateral renal cortical thinning. 5. Moderate ascites. Dictated by: Frank Rosa RRA Interpreted: Edwin Biggs MD on 09/05/2016 at 15 :08 Esophagogastroduodenoscopy. IMPRESSION: 1. Large esophageal varices, status post band ligation x4. 2. Small esophageal varices. Sindhu Alvarado MD 09/05/16 5377 US GUIDED PARACENTESIS, PRIMARY FINDINGS: Access site: Right lower quadrant Needle: One-Step centesis catheter with introducer needle. Fluid volume and description: 4.1 L slightly bloody tinged peritoneal fluid. Fluid sent for diagnostic testing: Fluid sent for cytology, multiple chemistry panels and therapeutic drainage. Medications: 1% lidocaine for local anaesthesia. Complications: None. IMPRESSION: Successful ultrasound-guided paracentesis. Dictated by: Frank Rosa RRA Interpreted: Magdalene Bello MD on 09/06/2016 at 16:55 Assessment & Plan Esopaheal variceal bleeding -H/H stable, no further overt bleeding -s/p EGD with band ligation -repeat EGD with band ligation as outpatient in 2 weeks -would avoid nadolol in setting of refractory ascites especiall with renal insufficiency Ascites -started on diuretics would follow BMP and adjust dose accordingly -paracentesis as needed with IV albumin replacement Cirrhosis -continue supportive care Renal insufficiency -follow BMP GI Prophylaxis: Proton Pump Inhibitor VTE Prophylaxis: SCDs VTE Mechanical Devices: Intermittant Pneumatic CD Resuscitation Status: DNR/DNI:Do Not Resuscitate/Intubate Sindhu Alvarado MD Sep 10, 2016 16:17
[2016-09-10] MEDS: ALPRAZolam 0.5 mg Tablet PO PRN (21:37)
[2016-09-10 21:40] VITALS: BP 150/74; PULSE 55; RESP 20; O2SAT 98
--- NOTE | 2016-09-11 05:22 | NUR ---
Pain Pt reporting pain 4/10 to back and abdomen. Medicated pt with oxycodone and xanax at HS per pt's request. Pt resting in bed after medication admin, no further c/o pain this shift. Call light within reach, frequent rounding.
[2016-09-11] MEDS: Sucralfate 1,000 mg Tablet PO SCH ×4 (06:24→21:15)
[2016-09-11 06:25] VITALS: BP 109/57; PULSE 54; RESP 20; O2SAT 99
[2016-09-11] MEDS: Insulin LISPRO 300 Unit/3 mL Inj SUBQ SCH ×4 (08:00→22:00)
[2016-09-11] MEDS: Pantoprazole 40 mg ER24 Tablet PO SCH (09:18)
--- NOTE | 2016-09-11 09:56 | PCM.PNMED ---
Subjective Date of Service Sep 11, 2016 Subjective no new complaints still experiencing post prandial epigastric pain which resolves on its own within 30 minutes no associated nausea or vomiting no improvement with PPI or sucralfate no further bleeding Exam Vital Signs Vital Sign - Last Date Time Temp Pulse Resp B/P Pulse Ox O2 Delivery O2 Flow Rate FiO2 09/11/16 06:25 36.6 54 20 109/57 99 Room Air 09/07/16 18:44 1.00 Intake and Output 09/10/16 09/10/16 09/11/16 Cumulative From/Thru 15:00 23:00 07:00 09/05/16 12:22 - 09/11/16 06:56 Intake Total 800 ml 450 ml 34002 ml Output Total 375 ml 350 ml 5295 ml Balance 425 ml 100 ml 7274 ml Intake Oral 700 ml 450 ml 4560 ml IV Total 100 ml 6437 ml Packed Cells 680 ml FFP 200 ml Platelets 692 ml Output Urine Total 375 ml 350 ml 4005 ml Urine/Stool Mix 1290 ml # Voids 5 # Bowel Movements 3 1 27 Exam GEN- oriented to person, place and time HEENT- no icterus RESP-decreased breath sounds in bilateral bases CVS-RRR Abdomen-distended, fluid wave present, non tender EXT- edema present Neuro- no asterixis Lab and Diagnostics Result Diagram: 09/10/16 0815 09/10/16 0815 X-Rays, CTs and MRIs . X-RAY PICC LINE PLACEMENT BY NURSE IMPRESSION: Tip of PICC lies at the cavoatrial junction. Dictated by: Mehdi Cummings M.D. on 09/05/2016 at 17:41 PROCEDURE: NM BONE SCAN THREE PHASE RADIOPHARMACEUTICAL: 26.3 mCi Tc-99m MDP IV. INDICATIONS: RIGHT WRIST PAIN TECHNIQUE: Multiple bone scintigrams were obtained after intravenous injection of Tc-99m MDP, including flow, blood pool, and delayed images centered to the region of interest. COMPARISON: [facility], CR, XR WRIST 3VW RT, 09/06/2016, 9:25. FINDINGS: Immediate blood flow images demonstrate diffuse increased radiotracer involving the distal right forearm, the right wrist and the first second third and fourth DIP joints. Intermediate blood pool images demonstrate diffuse increased radiotracer in the distal right forearm, right wrist and first, second or third and fourth DIP joints. Delayed images demonstrate diffuse, increased radiotracer uptake involving the carpal bones, distal radius, distal ulna and first, second, third and fourth DIP joints. Finding is most suspicious for complex regional pain syndrome, however finding is nonspecific and infectious process cannot be completely excluded. Recommend nuclear medicine tagged white cell scan if there is clinical concern for cellulitis with osteomyelitis. IMPRESSION: Abnormal radiotracer activity in all 3 phases involving the distal radius, distal ulna, the carpal bones of the wrist and DIP joints of the hand most suspicious for a complex regional pain syndrome, however nuclear medicine tagged white cell scan is warranted if there is clinical concern for cellulitis with osteomyelitis. Dictated by: Magdalene Bello MD, PhD on 09/07/2016 at 15:39 Cardiac Echo Impressions . Echocardiogram Report Interpretation Summary: The left ventricle is mildly dilated. Left ventricular ejection fraction is estimated to be 40%. Apical and anteroseptal akinesis, inferoapical dyskinesis, c/w prior LAD infarct The right ventricle is mildly dilated. There is a pacemaker lead in the right ventricle. The left atrium is severely dilated. There is mild to moderate mitral regurgitation. There is no hemodynamically significant valvular aortic stenosis. There is moderate tricuspid regurgitation. The right ventricular systolic pressure is estimated at 51 mmHg assuming a right atrial pressure of 8 mm Hg. There is mild pulmonic regurgitation. There are large-sized bilateral pleural effusions noted. Electronically signed by: Yung Shahid on [facility] . US ABDOMEN DOPPLER, LIMITED IMPRESSION: 1. Cirrhotic appearance of the liver in no discrete focal hepatic abnormality is seen. 2. Enlarged portal vein otherwise normal hepatoportal Doppler assessment. 3. Splenomegaly suggesting portal hypertension. 4. Bilateral renal cortical thinning. 5. Moderate ascites. Dictated by: Frank Rosa RRA Interpreted: Edwin Biggs MD on 09/05/2016 at 15 :08 Esophagogastroduodenoscopy. IMPRESSION: 1. Large esophageal varices, status post band ligation x4. 2. Small esophageal varices. Sindhu Alvarado MD 09/05/16 9995 US GUIDED PARACENTESIS, PRIMARY FINDINGS: Access site: Right lower quadrant Needle: One-Step centesis catheter with introducer needle. Fluid volume and description: 4.1 L slightly bloody tinged peritoneal fluid. Fluid sent for diagnostic testing: Fluid sent for cytology, multiple chemistry panels and therapeutic drainage. Medications: 1% lidocaine for local anaesthesia. Complications: None. IMPRESSION: Successful ultrasound-guided paracentesis. Dictated by: Frank Rosa RRA Interpreted: Magdalene Bello MD on 09/06/2016 at 16:55 Assessment & Plan Post prandial epigastric pain -unclear etiology for pain -trial of levsin PRN -cont PPI -recommend d/c sucralfate Esopaheal variceal bleeding -H/H for today pending, no further overt bleeding -s/p EGD with band ligation -repeat EGD with band ligation as outpatient in 2 weeks -would avoid nadolol in setting of refractory ascites especiall with renal insufficiency -if H/H stable and serum creatinine improved , could discharge and follow up with Dr Thakur as outpatient Ascites -started on diuretics would follow BMP and adjust dose accordingly -paracentesis as needed with IV albumin replacement Cirrhosis -continue supportive care Renal insufficiency -follow BMP GI Prophylaxis: Proton Pump Inhibitor VTE Prophylaxis: SCDs VTE Mechanical Devices: Intermittant Pneumatic CD Resuscitation Status: DNR/DNI:Do Not Resuscitate/Intubate Sindhu Alvarado MD Sep 11, 2016 09:56
[2016-09-11 11:45] LABS: BASOPHILS % (AUTO) 0.3 % (0-3); EOSINOPHILS % (AUTO) 2.3 % (0-5); MONOCYTES % (AUTO) 6.2 % (4-12); Mean Corpuscular Volume 92.3 fL (81-100); NEUTROPHILS % (AUTO) 80.8 % (40-74)
[2016-09-11 12:04] LABS: Platelet Count 29 bil/L (150-400)
[2016-09-11 12:09] LABS: INR 1.52 ratio
[2016-09-11 12:13] LABS: Magnesium 1.7 mg/dL (1.6-2.6)
--- NOTE | 2016-09-11 12:38 | NUR ---
Social Work Note: Discharge Data & Assessment: EMR reviewed. Patient was discussed in daily rounds and it is anticipated that patient will discharge today. Pt lives lives with her daughter and is currently independent in her room. No discharge needs identified at this time. SW to continue to follow if any needs arise. Plan: Patient will discharge home via POV. No discharge needs identified. SW to continue to follow. Laura Joiner LMSW, ALLIE
--- NOTE | 2016-09-11 12:57 | PCM.PNMED ---
Subjective Date of Service Sep 11, 2016 Subjective No tarry stool. Hemoglobin is stable. Kidney function slightly worse. Lowered diuretic dose. Gave 25g albumin yesterday. Exam Vital Signs Vital Sign - Last Date Time Temp Pulse Resp B/P Pulse Ox O2 Delivery O2 Flow Rate FiO2 09/11/16 09:00 Supplement Oxygen 09/11/16 06:25 36.6 54 20 109/57 99 09/07/16 18:44 1.00 Intake and Output 09/10/16 09/10/16 09/11/16 Cumulative From/Thru 15:00 23:00 07:00 09/05/16 12:22 - 09/11/16 06:56 Intake Total 800 ml 450 ml 30481 ml Output Total 375 ml 350 ml 5295 ml Balance 425 ml 100 ml 7274 ml Intake Oral 700 ml 450 ml 4560 ml IV Total 100 ml 6437 ml Packed Cells 680 ml FFP 200 ml Platelets 692 ml Output Urine Total 375 ml 350 ml 4005 ml Urine/Stool Mix 1290 ml # Voids 5 # Bowel Movements 3 1 Exam General: Elderly female in no acute distress laying in hospital but appropriately interactive. HEENT: Normocephalic, atraumatic. External ears without defect. Pupils equal, round, and reactive to light and accommodation. Pale sclera. Neck: No jugular venous distension. Cardiovascular: Regular rate and rhythm with soft systolic murmur heard at left and right 2nd intercostal/sternal border Pulmonary: Clear to auscultation bilaterally with no crackles. Normal respiratory effort with no use of accessory muscles. Abdomen: Distended abdomen, soft palpation 4 quadrants. Mildly tender to palpation. Significant ascites, Extremities: No clubbing, cyanosis. Lower extremity edema bilaterally to ankles. Right wrist slightly tender to palpation. not warm or red Skin: Normal temperature, turgor, and texture. Neurological: Cranial nerves grossly intact. Psychiatric: Normal mood and affect. Alert and oriented to person, place, and time. IVs and Medications Medications Reviewed: Medications were reviewed in detail Lab and Diagnostics Result Diagram: 09/11/16 1130 09/11/16 1130 X-Rays, CTs and MRIs . X-RAY PICC LINE PLACEMENT BY NURSE IMPRESSION: Tip of PICC lies at the cavoatrial junction. Dictated by: Mehdi Cummings M.D. on 09/05/2016 at 17:41 PROCEDURE: NM BONE SCAN THREE PHASE RADIOPHARMACEUTICAL: 26.3 mCi Tc-99m MDP IV. INDICATIONS: RIGHT WRIST PAIN TECHNIQUE: Multiple bone scintigrams were obtained after intravenous injection of Tc-99m MDP, including flow, blood pool, and delayed images centered to the region of interest. COMPARISON: [facility], CR, XR WRIST 3VW RT, 09/06/2016, 9:25. FINDINGS: Immediate blood flow images demonstrate diffuse increased radiotracer involving the distal right forearm, the right wrist and the first second third and fourth DIP joints. Intermediate blood pool images demonstrate diffuse increased radiotracer in the distal right forearm, right wrist and first, second or third and fourth DIP joints. Delayed images demonstrate diffuse, increased radiotracer uptake involving the carpal bones, distal radius, distal ulna and first, second, third and fourth DIP joints. Finding is most suspicious for complex regional pain syndrome, however finding is nonspecific and infectious process cannot be completely excluded. Recommend nuclear medicine tagged white cell scan if there is clinical concern for cellulitis with osteomyelitis. IMPRESSION: Abnormal radiotracer activity in all 3 phases involving the distal radius, distal ulna, the carpal bones of the wrist and DIP joints of the hand most suspicious for a complex regional pain syndrome, however nuclear medicine tagged white cell scan is warranted if there is clinical concern for cellulitis with osteomyelitis. Dictated by: Magdalene Bello MD, PhD on 09/07/2016 at 15:39 Cardiac Echo Impressions . Echocardiogram Report Interpretation Summary: The left ventricle is mildly dilated. Left ventricular ejection fraction is estimated to be 40%. Apical and anteroseptal akinesis, inferoapical dyskinesis, c/w prior LAD infarct The right ventricle is mildly dilated. There is a pacemaker lead in the right ventricle. The left atrium is severely dilated. There is mild to moderate mitral regurgitation. There is no hemodynamically significant valvular aortic stenosis. There is moderate tricuspid regurgitation. The right ventricular systolic pressure is estimated at 51 mmHg assuming a right atrial pressure of 8 mm Hg. There is mild pulmonic regurgitation. There are large-sized bilateral pleural effusions noted. Electronically signed by: Yung Shahid on Additional Diagnostics . US ABDOMEN DOPPLER, LIMITED IMPRESSION: 1. Cirrhotic appearance of the liver in no discrete focal hepatic abnormality is seen. 2. Enlarged portal vein otherwise normal hepatoportal Doppler assessment. 3. Splenomegaly suggesting portal hypertension. 4. Bilateral renal cortical thinning. 5. Moderate ascites. Dictated by: Frank NAVARRO Interpreted: Edwin Biggs MD on 09/05/2016 at 15 :08 Esophagogastroduodenoscopy. IMPRESSION: 1. Large esophageal varices, status post band ligation x4. 2. Small esophageal varices. Sindhu Alvarado MD 09/05/16 1824 US GUIDED PARACENTESIS, PRIMARY FINDINGS: Access site: Right lower quadrant Needle: One-Step centesis catheter with introducer needle. Fluid volume and description: 4.1 L slightly bloody tinged peritoneal fluid. Fluid sent for diagnostic testing: Fluid sent for cytology, multiple chemistry panels and therapeutic drainage. Medications: 1% lidocaine for local anaesthesia. Complications: None. IMPRESSION: Successful ultrasound-guided paracentesis. Dictated by: Frank NAVARRO Interpreted: Magdalene Bello MD on 09/06/2016 at 16:55 Assessment & Plan 80-year-old female past medical history of cryptogenic cirrhosis pancytopenia esophageal varices admitted for hematemesis and hematochezia. From ED C PICC line placement followed by GI upper and lower endoscopy for source identification. # Gastrointestinal bleed from esophageal varices. Acute Present on admission. Ongoing - GI following - EGD 09/05 showed Large esophageal varices, status post band ligation x4 - No NG or OG tube placement - received 3 units PRBCs, - Continue to follow H&H, transfuse if hemoglobin less than 8 - Completed 72h octreotide - -Repeat endoscopy and banding in [address] Thakur per GI -Continue Protonix 40mg PO . Discontinued Carafate 1g PO QID 09/11 per GI. Continue PPI. may consider stopping PPI to see if platelet improves if platelets drop as per GI - Advance diet -patient refuses TIPS # Cryptogenic cirrhosis. Chronic. Present on admission. Ongoing - Completed octreotide as above - Started Nadolol 40mg daily. Lowered dose to 20 mg per day. continues to be bradycardic . discontinued due to bradycardia per GI .Child-Pug class B # Blood loss anemia. Present on admission. Acute on chronic. Ongoing - Transfuse threshold as above #BEBE -Creatinine slowly going up to 2.24 -gave albumin 25 g 09/10 -Follow-up BMP tomorrow - Home aldactone 100 mg by mouth daily and lasix 40 mg daily resumed on 09/09. Ascites does not seem to be reaccumulating fast. Lowered Aldactone to 50 mg and Lasix 20 mg. Follow-up BMP in a.m. and adjust accordingly # Pancytopenia. Present on admission. Acute. Ongoing - Hematology oncology following, recommendations appreciated - Transfuse platelets, replete if less than 50,000 - 6 units platelets thus far . last transfusion 09/09 - Per heme/onc recommendations: -Patient is not getting her home promecta 25 mg MWF . Daughter brought medication from home today and started. #Abdominal ascites. Present on admission. Ongoing. Chronic. - At baseline receives bimonthly paracentesis taking approximately 8 L off each time - Paracentesis 09/06/2016, 4 L fluid removed. Requested repeat paracentesis today 09/09. Volume not adequate for therapeutic paracentesis -Initially considered Pleurex placement . Patient gets paracentesis only 2 times per month. her distension is not tense at the moment. Patient has thrombocytopenia/pancytopenia and other comorbidities. I feel She will be at increased risk of bleeding and getting infection from Pleurex than twice a month paracentesis. May consider Pleurx placement outpatient if she requires more frequent paracentesis. -Completed 3 day ceftriaxone for SBP prophylaxis -started aldactone 100 daily and lasix 40 mg daily. lowered dose as above #Initially suspected cellulitis of right wrist. Present on admission. Ruled out - Infectious disease following, recommendations are appreciated - CXR shows possible osteomyelitis - Nuclear medicine scan consistent with regional pain syndrome -Completed Ceftriaxone 2 g daily for SBP prophylaxis - Continue to monitor #Hypertension. Chronic. Present admission. Ongoing -Resume home furosemide #Hyperlipidemia. Chronic. Present admission. Ongoing - Hold home atorvastatin 20 mg by mouth daily #Diabetes type II. Chronic. Present admission. Ongoing - Correctional scale insulin - A1c 6.1 #Hypothyroidism. Chronic. Present on admission. Ongoing - resume home levothyroxine 200 g #BEBE on Chronic kidney disease. Present on admission. Ongoing - Avoid nephrotoxic agents - IV hydration 100 mL normal saline - Creatinine remains elevated - Continue to monitor Disposition: She may be discharged tomorrow if kidney function improves with lower dose of diuretics GI Prophylaxis: Proton Pump Inhibitor VTE Prophylaxis: SCDs VTE Mechanical Devices: Intermittant Pneumatic CD Resuscitation Status: DNR/DNI:Do Not Resuscitate/Intubate Marycarmen Rodriguezaku MD Sep 11, 2016 12:57
[2016-09-11 13:36] VITALS: BP 122/65; PULSE 55; RESP 18; O2SAT 97
[2016-09-11] MEDS: ELTROMBOPAG 25 MG PO SCH (15:46)
[2016-09-11 17:11] VITALS: BP 138/64; PULSE 57; RESP 20; O2SAT 98
--- NOTE | 2016-09-11 18:44 | NUR ---
Appetite / intake Patient has mild abdominal pain 0f 4-5/10 that is relieved with PO oxycodone. States her appetite is "better" and has moderate intake. Reports some mild, transient nausea at times. PO Carafate given as scheduled. Bed low and locked, call light in reach, care and rounding ongoing.
[2016-09-11 20:39] VITALS: BP 137/69; PULSE 54; RESP 20; O2SAT 98
[2016-09-11] MEDS: ALPRAZolam 0.5 mg Tablet PO PRN (21:15)
[2016-09-12 04:47] VITALS: BP 111/61; PULSE 52; RESP 20; O2SAT 96
[2016-09-12] MEDS: Sucralfate 1,000 mg Tablet PO SCH ×4 (05:14→20:47)
[2016-09-12 07:59] LABS: BASOPHILS % (AUTO) 0 % (0-3); EOSINOPHILS % (AUTO) 2.9 % (0-5); MONOCYTES % (AUTO) 12.8 % (4-12); Mean Corpuscular Hemoglobin 29.7 pg (27.0-35.0); Mean Corpuscular Volume 93.9 fL (81-100); NEUTROPHILS % (AUTO) 73.1 % (40-74)
[2016-09-12 08:03] LABS: Platelet Count 31 bil/L (150-400)
--- NOTE | 2016-09-12 08:16 | PROG NOTE ---
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 Cirrhosis is felt to be cryptogenic, with negative viral studies and no evidence of hemochromatosis or iron overload. Bone marrow studies were negative for myelofibrosis or myelodysplastic syndrome. She was hospitalized with an episode of acute hematemesis. Upper endoscopy showed large columns of varices arising from just above the GE junction. Four of these were successfully banded. She has completed a 72-hour infusion of octreotide and is on a daily PPI. She denies any active bleeding at this time. In particular, no further hematemesis. She is feeling a bit stronger. She still has significant abdominal ascites, which is chronic, and requires paracentesis about once every two weeks. She has received three days of ceftriaxone for SBP prophylaxis in the hospital. OBJECTIVE: Vitals: T 36.6, P 52, R 20, BP 111/61, O2 saturation 96% on room air. HEENT: Conjunctivae pale. Mucous membranes slightly dry. No oral lesions. Chest: Decreased at the bases. Cardiac exam: Bradycardic but regular with normal S1, S2. Abdomen: Moderately distended with ascites. Liver edge remains firm about three fingerbreadths below the right costal margin. Extremities: Bilateral inguinal hernias, 1+ lower extremity edema, 1+ distal pulses. LABORATORIES: WBC 3.1, hemoglobin 8.6, hematocrit 27.4%, platelets 29,000. BUN 56, creatinine 2.24, glucose 202. ASSESSMENT AND PLAN: 1. Asymptomatic anemia: The patient was transfused during this hospitalization, but is not currently symptomatic. She had clear evidence of esophageal varices bleeding, and underwent a banding procedure, banding four of her varices. Additional evaluation is pending in another 1-2 weeks. Continue close monitoring of hematologic parameters, with additional transfusion support if indicated. No indication for transfusion support at this moment, unless she were to undergo repeat paracentesis, in which case I would recommend transfusion with platelets prior to the procedure. 2. Pancytopenia in the setting of cryptogenic cirrhosis with splenomegaly and esophageal varices, exacerbated by renal insufficiency: Continue Promacta each Monday, Monday and Monday.
[2016-09-12] MEDS ORDERED: ELTROMBOPAG 25 MG PO SCH (08:30)
[2016-09-12] MEDS: Pantoprazole 40 mg ER24 Tablet PO SCH (09:23)
[2016-09-12] MEDS: Insulin LISPRO 300 Unit/3 mL Inj SUBQ SCH ×4 (09:24→22:10)
[2016-09-12] MEDS: ELTROMBOPAG 25 MG PO SCH (09:24)
--- NOTE | 2016-09-12 10:40 | NUR ---
ELIANA Signed @ [id number]
--- NOTE | 2016-09-12 12:35 | PCM.CONPAL ---
Date of Service September 12, 2016 Date of Hospital Admission: Sep 05, 2016 at 14:38 Date of Palliative Consult: September 12, 2016 Requesting Provider: Rex Rodriguez MD Reason Palliative Care Consult: Goals of Care Discussion Hospital Unit @time of consult: Medical/Pediatric Care Palliative Care Recommendation 80-year-old woman with long history of cryptogenic cirrhosis, recurrent ascites , GI bleed secondary to varices and now acute on chronic renal failure. Palliative medicine consult to assist in determination of goals of care. Summary of palliative recommendations: -Symptom management (Pain/other)- no significant distress. Management per hospitalist. -DPOA/Advanced Directives/POLST- reviewed her POLST with her. It indicated DO NOT RESUSCITATE/comfort measures which is not correct- she does want ongoing medical treatment, hospitalization if needed, etc. I assisted her in completing a new POLST today and copies are appended to her chart and placed in the palliative medicine office. Her daughter is her POA. -Family/emotional support- good support from her daughter was she lives. Limited additional outside social support or contact. Despite this, she feels her quality of life is acceptable. Patient Goals: 1. Patient wants to be told the truth about her illness, even if it is unpleasant. 2. Patient would like to be told prognosis when it can be predicted, to better guide treatment decisions. Additional Medical Diagnoses with primary management by Hospitalist team include : # Gastrointestinal bleed from esophageal varices. Acute Present on admission. Ongoing # Cryptogenic cirrhosis. Chronic. Present on admission. Ongoing # Blood loss anemia. Present on admission. Acute on chronic. Ongoing # Pancytopenia. Present on admission. Acute. Ongoing #Abdominal ascites. Present on admission. Ongoing. Chronic. #Initially suspected cellulitis of right wrist. Present on admission. Ruled out #Hypertension. Chronic. Present admission. Ongoing #Hyperlipidemia. Chronic. Present admission. Ongoing #Diabetes type II. Chronic. Present admission. Ongoing #Hypothyroidism. Chronic. Present on admission. Ongoing #BEBE on Chronic kidney disease. Present on admission. Ongoing Problems: End of Life Preferences DO NOT RESUSCITATE/DO NOT INTUBATE/limited interventions/hospitalization okay/ no artificial nutrition Goals of Care Continued supportive care and management of straightforward medical issues Says that she would generally want to avoid aggressive/invasive interventions, but IS willing to consider a Pleurx drain for her recurrent ascites Disposition Probably home with her daughter Resuscitation Status Resuscitation Status: DNR/DNI:Do Not Resuscitate/Intubate POLST Updates/Changes Previous POLST?: Yes POLST Last Review Date: September 12, 2016 Antibiotics: Use ABX if can Prolong Life Artificially Admin Nutrition: No Artifical Nutrition by Tube POLST Discussed with: Patient POLST Review Outcome: New Form Completed . Advanced Care Planning Address: POLST Pain: None Pt History History of Present Illness Per admission H&P: Patient started to vomit blood yesterday AM while while preparing for a bi- weekly therapeutic paracentesis at her Oncology office. Thereafter, she also reported marooned color stool and was transferred to ED for evaluation. Blood work demonstrated normocytic anemia. All the while, US ultrasound confirmed nodular liver with portal hypertension with vein diameter dilated 18mm, enlarged spleen, and moderate ascites. Upper endoscopy performed same day showed esophageal varices, however unrevealing in the fact that there were no blood in stomach. Patient received a total of 3 pRBC and 3 packs of 6units platelets and transferred to CCU for further monitoring. Patient denies any recent hx of hematemesis or hematochezia, though does admits to hemorrhoids in the past. No hx of ETOH abuse, she has DM II for over 15yrs and was obese a few years back. Denies hx of SBP. Review of records showed pancytopenic since 2011. This includes WBC mid-2 -3's thousands, Hgb 9.0's, and Plt low-40's. She is currently on Promacta. She recently had 2 pRBC transfusion (08/24) due to symptomatic anemia. Unrelated, she was recently started on antibiotic for a Right hand/wrist infection. Right hand swelling/pain started about 6wks ago when she had IV line placed for paracentesis. She has received 3 courses of antibiotics without improvement, most recent doxycycline. Right hand more swollen, increasing pain. Movement exacerbate pain. Palliative medicine consulted to assist patient in determination of goals of care in the setting of her multiple medical problems. Prior to visiting patient, I reviewed her records in the EMR in detail, spoke with her hospitalists (last Monday and again today) and with her bedside nurse. Bleeding has stabilized since admission. She continues with significant thrombocytopenia. She has recurrent ascites and had paracentesis last week. She has acute on chronic renal failure which has worsened over the last 48 hours. When I arrived to see her, she is lying in bed but awakens easily and is oriented and appropriate. Answers all questions clearly and appropriately. We reviewed the conditions that led to this admission, her treatments here, and her various medical diagnoses, particularly the renal failure, that call for her continued admission. Reviewed her history of liver disease and chronic ascites- she notes that she has been receiving twice a month paracentesis for about one year now and feels that that situation is stable. She had a number of questions about her renal failure and we discussed these. She notes that she follows every 3 months with a passenger service representative at the [facility], and she has never been told that she was in imminent need of dialysis. Generally, she feels that her health is stable and that her quality of life is stable and quite satisfactory. We talked about her wishes for ongoing medical treatment. She has a POLST at home (a copy of which is in her paper chart) and we reviewed its details- we will complete a new POLST for her prior to discharge as the current one is not quite correct in detailing her wishes. Past Medical History Significant PMH Noted: Cryptogenic cirrhosis Pancytopenia Esophageal varices Renal insufficiency Anemia PUD Reports: Diabetes mellitus, Hyperlipidemia Reports: Atrial fibrillation, Thyroid disease (Hypothyroidism) Per [facility] outpatient records problem list: CKD A. fib Blood clot of common bile duct Anemia Hyperlipidemia Peptic ulcer disease Chronic back pain CAD CHF Diabetes mellitus Hypothyroidism Social History Occupation: Retired; Social Support: Limited outside activities Social pretty much stays at home with her daughter Living Situation: Lives with her daughter in an apartment Daughter is her primary caregiver; her daughter works nights. Is available all day to help with the patient She has a walker which she uses occasionally; independent in the home in terms of all of her ADLs Palliative Performance Scale PPS Patient Status: Baseline PPS Ambulation: Reduced PPS Activity: Unable to do most activity PPS Self-Care: Full Self Care PPS Intake: Normal or reduced (notes that she has lost some weight over the last year and that her appetite is generally poor) PPS Conscious Level: Full Performance Scale: 60% ADLs ADL Patient Status: Baseline ADL Ambulation: Reduced ADL Dressing: Full ADL Feeding: Full ADL Hygene/bathing: Full ADL Transfers: Full POLST at Time of Admission Previous POLST?: Yes POLST Last Review Date: September 12, 2016 Cardiopulmonary Resuscitation: DNR: Do Not Attempt Resuscitation Medical Interventions: Comfort Measures Only Antibiotics: Use ABX if can Prolong Life Artificially Admin Nutrition: No Artifical Nutrition by Tube POLST Discussed with: Patient POLST Status: Changed-see new form Allergy Allergies Reviewed: Yes Medications Current Medications: Current Medications Patient Own Medication 1 ea MoWeFr PO; Start 09/12/16 at 08:30; Stop 09/12/16 at 08:30; Status DC Oxycodone HCl 5 mg Q4H PRN PO Last administered on 09/12/16 12:01; Admin Dose 5 MG; Start 09/10/16 at 12:35 Patient Own Medication 1 ea MoWeFr PO Last administered on 09/12/16 09:24; Admin Dose 1 EA; Start 09/11/16 at 15:35 Furosemide 20 mg DAILY PO Last administered on 09/12/16 09:23; Admin Dose 20 MG ; Start 09/12/16 at 08:30 Spironolactone 50 mg DAILY PO Last administered on 09/12/16 09:23; Admin Dose 50 MG; Start 09/12/16 at 08:30 Scheduled Atorvastatin Calcium (Atorvastatin Calcium) 20 Mg Tablet 20 MG PO DAILY Doxycycline Hyclate (Doxycycline Hyclate) 100 Mg Capsule 100 MG PO BID Eltrombopag Olamine (Promacta) 25 Mg Tablet 25 MG PO mon,wed, mon M,W,F Ferrous Sulfate (Ferrous Sulfate) 325 Mg Tablet 325 MG PO DAILY Folic Acid (Folic Acid) 0.4 Mg Tablet 0.4 MG PO DAILY Furosemide (Furosemide) 40 Mg Tablet 40 MG PO DAILY Insulin Glargine (Lantus U100 Insulin Vial) 100 Unit/Ml Vial 30-50 UNIT SUBQ QAM Levothyroxine (Levothyroxine) 200 Mcg Tablet 200 MCG PO DAILY Omeprazole Magnesium (Prilosec Otc) 20 Mg Tablet.dr 20 MG PO DAILY oxyCODONE (oxyCODONE) 5 Mg Tablet 2.5 MG PO BID Scheduled PRN Alprazolam (Alprazolam) 0.5 Mg Tablet 0.5 MG PO DAILY PRN PRN For Anxiety Cyclobenzaprine (Cyclobenzaprine) 10 Mg Tablet 10 MG PO DAILY PRN PRN For Pain Lactulose (Lactulose) 10 Gm/15 Ml Solution 15 ML PO BID PRN PRN For Constipation Objective Findings Exam Vital Sign - Last Date Time Temp Pulse Resp B/P Pulse Ox O2 Delivery O2 Flow Rate FiO2 09/12/16 09:23 Supplement Oxygen 09/12/16 04:47 36.6 52 20 111/61 96 09/07/16 18:44 1.00 Intake and Output 09/11/16 09/11/16 09/12/16 Cumulative From/Thru 15:00 23:00 07:00 09/05/16 12:22 - 09/12/16 06:18 Intake Total 900 ml 150 ml 38883 ml Output Total 650 ml 500 ml 6445 ml Balance 250 ml -350 ml 7174 ml Intake Oral 900 ml 150 ml 5610 ml IV Total 6437 ml Packed Cells 680 ml FFP 200 ml Platelets 692 ml Output Urine Total 650 ml 500 ml 5155 ml Urine/Stool Mix 1290 ml # Voids 5 # Bowel Movements 2 29 Objective Pleasant elderly woman lying in bed in no distress. Vital signs noted. Skin is warm and dry. Head and neck exam without acute focal findings. Lungs clear anterolaterally, heart tones regular with 2/6 systolic murmur heard at the base. No gallops or rubs. Abdomen is rounded/distended with ascites fluid wave ; not tense and no tenderness. Bowl tones active. Extremities with post edematous when clean and no pitting edema. Neurologic exam grossly intact. Lab/Diagnostics Lab and Imaging results reviewed in detail in EMR. Time spent Total time 75 minutes; >50% face to face with patient , providing counselling regarding plans and recommendations, and in care coordination with her medical teams. Of the above total time, 30 minutes spent reviewing advanced directive wishes, reviewing her POLST and helping her complete a new one copies to: Liang Smith MD, David F MD September 12, 2016 12:35
[2016-09-12 13:47] VITALS: BP 138/69; PULSE 57; RESP 20; O2SAT 99
--- NOTE | 2016-09-12 14:15 | PCM.PNMED ---
Subjective Date of Service September 12, 2016 Subjective Patient did well overnight; no new complaints; epigastric postprandial pain is improving but has not yet stopped. Patient continues on PPIs and sucralfate. Patient states she is having normal bowel movements without melena or hematochezia. No vomiting or nausea. Exam Vital Signs Vital Sign - Last Date Time Temp Pulse Resp B/P Pulse Ox O2 Delivery O2 Flow Rate FiO2 09/12/16 13:47 36.8 57 20 138/69 99 Room Air 09/07/16 18:44 1.00 Intake and Output 09/11/16 09/11/16 09/12/16 Cumulative From/Thru 15:00 23:00 07:00 09/05/16 12:22 - 09/12/16 06:18 Intake Total 900 ml 150 ml 47049 ml Output Total 650 ml 500 ml 6445 ml Balance 250 ml -350 ml 7174 ml Intake Oral 900 ml 150 ml 5610 ml IV Total 6437 ml Packed Cells 680 ml FFP 200 ml Platelets 692 ml Output Urine Total 650 ml 500 ml 5155 ml Urine/Stool Mix 1290 ml # Voids 5 # Bowel Movements 2 29 Exam General: Awake and alert and conversive HEENT: No icterus, lymphadenopathy and Cardio: Regular rate and rhythm Respiratory: Decreased breath sounds Abdomen: Mild- moderate distention; mild tender; small fluid wave Extremities: Positive for edema, moving all 4 extremities Neuro: Sensation is intact and patient is oriented without delirium. IVs and Medications Medications Reviewed: Medications were reviewed in detail Lab and Diagnostics Result Diagram: 09/12/16 0744 09/12/16 0744 X-Rays, CTs and MRIs . X-RAY PICC LINE PLACEMENT BY NURSE IMPRESSION: Tip of PICC lies at the cavoatrial junction. Dictated by: Mehdi Cummings M.D. on 09/05/2016 at 17:41 PROCEDURE: NM BONE SCAN THREE PHASE RADIOPHARMACEUTICAL: 26.3 mCi Tc-99m MDP IV. INDICATIONS: RIGHT WRIST PAIN TECHNIQUE: Multiple bone scintigrams were obtained after intravenous injection of Tc-99m MDP, including flow, blood pool, and delayed images centered to the region of interest. COMPARISON: [facility], CR, XR WRIST 3VW RT, 09/06/2016, 9:25. FINDINGS: Immediate blood flow images demonstrate diffuse increased radiotracer involving the distal right forearm, the right wrist and the first second third and fourth DIP joints. Intermediate blood pool images demonstrate diffuse increased radiotracer in the distal right forearm, right wrist and first, second or third and fourth DIP joints. Delayed images demonstrate diffuse, increased radiotracer uptake involving the carpal bones, distal radius, distal ulna and first, second, third and fourth DIP joints. Finding is most suspicious for complex regional pain syndrome, however finding is nonspecific and infectious process cannot be completely excluded. Recommend nuclear medicine tagged white cell scan if there is clinical concern for cellulitis with osteomyelitis. IMPRESSION: Abnormal radiotracer activity in all 3 phases involving the distal radius, distal ulna, the carpal bones of the wrist and DIP joints of the hand most suspicious for a complex regional pain syndrome, however nuclear medicine tagged white cell scan is warranted if there is clinical concern for cellulitis with osteomyelitis. Dictated by: Magdalene Bello MD, PhD on 09/07/2016 at 15:39 Cardiac Echo Impressions . Echocardiogram Report Interpretation Summary: The left ventricle is mildly dilated. Left ventricular ejection fraction is estimated to be 40%. Apical and anteroseptal akinesis, inferoapical dyskinesis, c/w prior LAD infarct The right ventricle is mildly dilated. There is a pacemaker lead in the right ventricle. The left atrium is severely dilated. There is mild to moderate mitral regurgitation. There is no hemodynamically significant valvular aortic stenosis. There is moderate tricuspid regurgitation. The right ventricular systolic pressure is estimated at 51 mmHg assuming a right atrial pressure of 8 mm Hg. There is mild pulmonic regurgitation. There are large-sized bilateral pleural effusions noted. Electronically signed by: Yung Shahid on [facility] . US ABDOMEN DOPPLER, LIMITED IMPRESSION: 1. Cirrhotic appearance of the liver in no discrete focal hepatic abnormality is seen. 2. Enlarged portal vein otherwise normal hepatoportal Doppler assessment. 3. Splenomegaly suggesting portal hypertension. 4. Bilateral renal cortical thinning. 5. Moderate ascites. Dictated by: Frank Rosa RRA Interpreted: Edwin Biggs MD on 09/05/2016 at 15 :08 Esophagogastroduodenoscopy. IMPRESSION: 1. Large esophageal varices, status post band ligation x4. 2. Small esophageal varices. Sindhu Alvarado MD 09/05/16 1824 US GUIDED PARACENTESIS, PRIMARY FINDINGS: Access site: Right lower quadrant Needle: One-Step centesis catheter with introducer needle. Fluid volume and description: 4.1 L slightly bloody tinged peritoneal fluid. Fluid sent for diagnostic testing: Fluid sent for cytology, multiple chemistry panels and therapeutic drainage. Medications: 1% lidocaine for local anaesthesia. Complications: None. IMPRESSION: Successful ultrasound-guided paracentesis. Dictated by: Frank NAVARRO Interpreted: Magdalene Bello MD on 09/06/2016 at 16:55 Assessment & Plan Post prandial epigastric pain -unclear etiology for pain -Levsin when necessary; recommend stopping sucralfate -Continue Protonix while inpatient up to 40 mg by mouth twice a day Esopaheal variceal bleeding -H&H stable -s/p EGD with band ligation -repeat EGD with band ligation as outpatient in 2 weeks -Avoid nadolol in setting of refractory ascites especiall with renal insufficiency -Once patient's creatinine is improved, anticipate discharge Ascites -Currently on Lasix 20 and Aldactone 50 -Follow BMP -Paracentesis as needed with IV albumin replacement Cirrhosis -continue supportive care Renal insufficiency -Defer to primary -Into to follow BMP GI Prophylaxis: Proton Pump Inhibitor VTE Prophylaxis: SCDs VTE Mechanical Devices: Intermittant Pneumatic CD Resuscitation Status: DNR/DNI:Do Not Resuscitate/Intubate Attending Statement patient not seen or examined by me today labs reviewed Partha Grossman DO September 12, 2016 14:15 Sindhu Alvarado MD September 13, 2016 20:27
--- NOTE | 2016-09-12 16:13 | PCM.PNMED ---
Subjective Date of Service September 12, 2016 Subjective Patient notes she is feeling okay at time of my evaluation. Continues to demonstrate significant ascites but states this appears to be her baseline. She denies any palpitations shortness of breath or chest pains in spite of her lack tried abnormalities and other medical conditions. As any fever sweats or chills overnight. No other acute complaints at this time. Still feeling very weak but optimistic she will be able to return home shortly. Exam Vital Signs Vital Sign - Last Date Time Temp Pulse Resp B/P Pulse Ox O2 Delivery O2 Flow Rate FiO2 09/12/16 13:47 36.8 57 20 138/69 99 Room Air 09/07/16 18:44 1.00 Intake and Output 09/11/16 09/11/16 09/12/16 Cumulative From/Thru 15:00 23:00 07:00 09/05/16 12:22 - 09/12/16 06:18 Intake Total 900 ml 150 ml 38563 ml Output Total 650 ml 500 ml 6445 ml Balance 250 ml -350 ml 7174 ml Intake Oral 900 ml 150 ml 5610 ml IV Total 6437 ml Packed Cells 680 ml FFP 200 ml Platelets 692 ml Output Urine Total 650 ml 500 ml 5155 ml Urine/Stool Mix 1290 ml # Voids 5 # Bowel Movements 2 29 General: Alert, Oriented X3, Cooperative, Mild Distress Mouth: Mucous Membranes Dry Chest & Lungs: Clear to auscultation & percussion Cardiovascular: Regular Rate/Rhythm Abdomen: Non-tender, Distended, Normoactive bowel tones, Soft Extremities: No cyanosis/clubbing/edma bilat Neurological: Grossly Neurologically Intact IVs and Medications Medications Reviewed: Medications were reviewed in detail Lab and Diagnostics Result Diagram: 09/12/16 0744 09/12/16 0744 X-Rays, CTs and MRIs . X-RAY PICC LINE PLACEMENT BY NURSE IMPRESSION: Tip of PICC lies at the cavoatrial junction. Dictated by: Mehdi Cummings M.D. on 09/05/2016 at 17:41 PROCEDURE: NM BONE SCAN THREE PHASE RADIOPHARMACEUTICAL: 26.3 mCi Tc-99m MDP IV. INDICATIONS: RIGHT WRIST PAIN TECHNIQUE: Multiple bone scintigrams were obtained after intravenous injection of Tc-99m MDP, including flow, blood pool, and delayed images centered to the region of interest. COMPARISON: [facility], CR, XR WRIST 3VW RT, 09/06/2016, 9:25. FINDINGS: Immediate blood flow images demonstrate diffuse increased radiotracer involving the distal right forearm, the right wrist and the first second third and fourth DIP joints. Intermediate blood pool images demonstrate diffuse increased radiotracer in the distal right forearm, right wrist and first, second or third and fourth DIP joints. Delayed images demonstrate diffuse, increased radiotracer uptake involving the carpal bones, distal radius, distal ulna and first, second, third and fourth DIP joints. Finding is most suspicious for complex regional pain syndrome, however finding is nonspecific and infectious process cannot be completely excluded. Recommend nuclear medicine tagged white cell scan if there is clinical concern for cellulitis with osteomyelitis. IMPRESSION: Abnormal radiotracer activity in all 3 phases involving the distal radius, distal ulna, the carpal bones of the wrist and DIP joints of the hand most suspicious for a complex regional pain syndrome, however nuclear medicine tagged white cell scan is warranted if there is clinical concern for cellulitis with osteomyelitis. Dictated by: Magdalene Bello MD, PhD on 09/07/2016 at 15:39 Cardiac Echo Impressions . Echocardiogram Report Interpretation Summary: The left ventricle is mildly dilated. Left ventricular ejection fraction is estimated to be 40%. Apical and anteroseptal akinesis, inferoapical dyskinesis, c/w prior LAD infarct The right ventricle is mildly dilated. There is a pacemaker lead in the right ventricle. The left atrium is severely dilated. There is mild to moderate mitral regurgitation. There is no hemodynamically significant valvular aortic stenosis. There is moderate tricuspid regurgitation. The right ventricular systolic pressure is estimated at 51 mmHg assuming a right atrial pressure of 8 mm Hg. There is mild pulmonic regurgitation. There are large-sized bilateral pleural effusions noted. Electronically signed by: Yung Shahid on [facility] . US ABDOMEN DOPPLER, LIMITED IMPRESSION: 1. Cirrhotic appearance of the liver in no discrete focal hepatic abnormality is seen. 2. Enlarged portal vein otherwise normal hepatoportal Doppler assessment. 3. Splenomegaly suggesting portal hypertension. 4. Bilateral renal cortical thinning. 5. Moderate ascites. Dictated by: Frank Rosa RRA Interpreted: Edwin Biggs MD on 09/05/2016 at 15 :08 Esophagogastroduodenoscopy. IMPRESSION: 1. Large esophageal varices, status post band ligation x4. 2. Small esophageal varices. Sindhu Alvarado MD 09/05/16 [id number] US GUIDED PARACENTESIS, PRIMARY FINDINGS: Access site: Right lower quadrant Needle: One-Step centesis catheter with introducer needle. Fluid volume and description: 4.1 L slightly bloody tinged peritoneal fluid. Fluid sent for diagnostic testing: Fluid sent for cytology, multiple chemistry panels and therapeutic drainage. Medications: 1% lidocaine for local anaesthesia. Complications: None. IMPRESSION: Successful ultrasound-guided paracentesis. Dictated by: Frank Rosa RRA Interpreted: Magdalene Bello MD on 09/06/2016 at 16:55 Assessment & Plan 80-year-old female past medical history of cryptogenic cirrhosis pancytopenia esophageal varices admitted for hematemesis and hematochezia. From ED C PICC line placement followed by GI upper and lower endoscopy for source identification. # Gastrointestinal bleed from esophageal varices. Acute Present on admission. Ongoing - GI following, appreciate their consultation - EGD 09/05 showed Large esophageal varices, status post band ligation x4 - No NG or OG tube placement - received 3 units PRBCs, - Continue to follow H&H, transfuse if hemoglobin less than 8 - Completed 72h octreotide - -Repeat endoscopy and banding in [address] Thakur per GI -Continue Protonix 40mg PO . Discontinued Carafate 1g PO QID 09/11 per GI. Continue PPI. may consider stopping PPI to see if platelet improves if platelets drop as per GI - Advance diet -patient refuses TIPS # Cryptogenic cirrhosis. Chronic. Present on admission. Ongoing - Completed octreotide as above - Started Nadolol 40mg daily. Lowered dose to 20 mg per day. continues to be bradycardic . discontinued due to bradycardia per GI .Child-Pug class B # Blood loss anemia. Present on admission. Acute on chronic. Ongoing - Transfuse threshold as above #BEBE -Creatinine slowly going up to 2.24 -gave albumin 25 g 09/10 -Follow-up BMP tomorrow - Home aldactone 100 mg by mouth daily and lasix 40 mg daily resumed on 09/09. Ascites does not seem to be reaccumulating fast. Lowered Aldactone to 50 mg and Lasix 20 mg. Follow-up BMP in a.m. and adjust accordingly # Pancytopenia. Present on admission. Acute. Ongoing - Hematology oncology following, recommendations appreciated - Transfuse platelets, replete if less than 50,000 - 6 units platelets thus far . last transfusion 09/09 - Per heme/onc recommendations: -Patient is not getting her home promecta 25 mg MWF . Daughter brought medication from home today and started. #Abdominal ascites. Present on admission. Ongoing. Chronic. - At baseline receives bimonthly paracentesis taking approximately 8 L off each time - Paracentesis 09/06/2016, 4 L fluid removed. Requested repeat paracentesis today 09/09. Volume not adequate for therapeutic paracentesis -Initially considered Pleurex placement . Patient gets paracentesis only 2 times per month. her distension is not tense at the moment. Patient has thrombocytopenia/pancytopenia and other comorbidities. I feel She will be at increased risk of bleeding and getting infection from Pleurex than twice a month paracentesis. May consider Pleurx placement outpatient if she requires more frequent paracentesis. -Completed 3 day ceftriaxone for SBP prophylaxis -started aldactone 100 daily and lasix 40 mg daily. lowered dose as above #Initially suspected cellulitis of right wrist. Present on admission. Ruled out - Infectious disease following, recommendations are appreciated - CXR shows possible osteomyelitis - Nuclear medicine scan consistent with regional pain syndrome -Completed Ceftriaxone 2 g daily for SBP prophylaxis - Continue to monitor #Hypertension. Chronic. Present admission. Ongoing -Resume home furosemide #Hyperlipidemia. Chronic. Present admission. Ongoing - Hold home atorvastatin 20 mg by mouth daily #Diabetes type II. Chronic. Present admission. Ongoing - Correctional scale insulin - A1c 6.1 #Hypothyroidism. Chronic. Present on admission. Ongoing - resume home levothyroxine 200 g #BEBE on Chronic kidney disease. Present on admission. Ongoing - Avoid nephrotoxic agents - IV hydration 100 mL normal saline - Creatinine remains elevated - Continue to monitor, renal function continues to be upper trending at this time Anticipate discharge home as soon as tomorrow with improving renal function and continue medical stability. Palliative care was additionally consulted and we appreciate their extensive conversation with patient regarding her goals of care. Certainly does not wish to withdraw all interventions which may prolong life but is certainly reasonable in regard to prognosis and benefits vs side effects of the various possible interventions available to her at this time. Pain Evaluation: Adequate Pain Control GI Prophylaxis: Proton Pump Inhibitor VTE Prophylaxis: SCDs VTE Mechanical Devices: Intermittant Pneumatic CD Resuscitation Status: DNR/DNI:Do Not Resuscitate/Intubate Time spent 25 minutes Tenzin Gonsales DO September 12, 2016 16:13
--- NOTE | 2016-09-12 18:57 | PROG NOTE ---
[address] [address] PROGRESS NOTE PATIENT: FAMILIA SHELLEY : 1935 MR#: [id number] ADMIT: 09/05/2016 JOB ID: [id number] DATE: 09/12/2016 REASON FOR FOLLOWUP: Possible septic right wrist. INTERVAL HISTORY: The patient tells me that over the past few days since I have last seen her, her wrist has steadily improved. She is having less pain and increased function of the right wrist, though it is still a bit tender with extension. Overall though, she thinks the course is one of improvement. She denies fevers, chills, or sweats. She has no pulmonary or GI symptoms of note. PHYSICAL EXAMINATION: Temperature 36.8, pulse 57, respiratory rate 20, blood pressure 138/69. She is saturating well on room air. Examination of the lungs reveals they are relatively clear. Her abdomen is notable for distention due to ascites, but it is not tender. Her right wrist does have almost no warmth or tenderness at this point, and an increased range of motion, though still not complete range of motion. No skin rash noted. LABORATORIES: Include a white count of 3100 today, platelet count 31,000. Creatinine 2.38, which is creeping up. LFTs are normal. No new micro is available. The H. Pylori study is negative. C. diff stool also was done on September 08 and that was negative. A MRSA screen of the nares was negative. No additional imaging of the wrist is available. The last thing we had was the bone scan which suggests complex regional pain syndrome. IMPRESSION: I see little evidence for septic wrist in this patient. 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 The patient said this all started with an insertion of an IV into her wrist while she was at an outside facility and I think that is a plausible explanation as there are reports of reflex sympathetic dystrophy starting after IV placement in the extremities. RECOMMENDATIONS: 1. The patient is now off antibiotics and I think it is reasonable to leave her that way. 2. I would continue to follow her off antibiotics and if her wrist should start to swell or become more painful, at that time, I would get a tagged white cell scan and then ask Hand Surgery to aspirate or biopsy the wrist to obtain appropriate cultures which should include AFB, fungal and routine cultures. 3. As long as the wrist continues to slowly get better, I would not perform any other diagnostic modalities, nor would I offer any additional antibiotics. 4. ID will go ahead and sign off at this time.
[2016-09-12 19:46] VITALS: BP 149/58; PULSE 69; RESP 20; O2SAT 98
[2016-09-12] MEDS: ALPRAZolam 0.5 mg Tablet PO PRN (22:12)
--- NOTE | 2016-09-13 04:29 | NUR ---
Pain: Pt c/o back pain this am x1, medication administered; resting in bed with eyes closed, RN will continue to monitor. No other complaints this shift, pt slept most of the night, pleasant and cooperative with care.
[2016-09-13 04:35] LABS: BASOPHILS % (AUTO) 0.3 % (0-3); EOSINOPHILS % (AUTO) 3.9 % (0-5); MONOCYTES % (AUTO) 8.8 % (4-12); Mean Corpuscular Hemoglobin 29.3 pg (27.0-35.0); Mean Corpuscular Volume 93.8 fL (81-100); NEUTROPHILS % (AUTO) 74.3 % (40-74)
[2016-09-13 04:39] LABS: Platelet Count 27 bil/L (150-400)
[2016-09-13 05:43] VITALS: BP 132/66; PULSE 56; RESP 20; O2SAT 98
[2016-09-13] MEDS: Sucralfate 1,000 mg Tablet PO SCH ×4 (06:18→22:39)
--- NOTE | 2016-09-13 06:19 | NUR ---
Critical Platelets: This am labs, platelets 27.
[2016-09-13] MEDS: Insulin LISPRO 300 Unit/3 mL Inj SUBQ SCH ×4 (08:00→22:00)
[2016-09-13] MEDS: Pantoprazole 40 mg ER24 Tablet PO SCH (09:01)
--- NOTE | 2016-09-13 10:05 | PCM.PALLBR ---
Palliative Care Recommendation 80-year-old woman with long history of cryptogenic cirrhosis, recurrent ascites , GI bleed secondary to varices and now acute on chronic renal failure. Palliative medicine consult to assist in determination of goals of care. Summary of palliative recommendations: Symptom management (Pain/other)- no significant distress. Management per hospitalist. Family/emotional support- good support from her daughter Lucas Stratton, with whom she lives. Limited additional outside social support or contact. Despite this, she feels her quality of life is acceptable. DPOA/Advanced Directives/POLST- 1. On 09/12, Dr. Sosa discussed with pt her wishes for ongoing medical treatment. She has a POLST at home (a copy of which is in her paper chart) and we reviewed its details- he helped her complete a new POLST. She wants DNR/DNI but also wants ongoing medical treatment, hospitalization if needed, etc. Copies of POLST are appended to her chart and placed in the palliative medicine office. Her daughter Lucas Stratton is her POA-->Contact tel is [phone]. Further discussion with patient: On 09/12, Dr. Sosa reviewed with patient the conditions that led to this admission, her treatments here, and her various medical diagnoses, particularly the renal failure, that call for her ongoing hospitalization. He also reviewed her history of liver disease and chronic ascites- patient notes that she has been receiving twice a month paracentesis for about one year now and feels that that situation is stable.She had a number of questions about her renal failure and these were also discussed. She said every 3 months she sees a railroad signal operator Dr. Solitario at the [facility], and she has never been told that she was in imminent need of dialysis. Generally, she feels that her health is stable and that her quality of life is stable and quite satisfactory. 09/13: Dr. Greene spoke to Dr. Barron who stated that patient's platelet count "lives around 25-35K" and he orders 1 unite of platelets prior to every paracentesis, regardless of the platelet count. Apparently paracentesis is about 5-8 liters taken off every [address] Sosa was wondering if a pleurex catheter had been considered, and Dr. Hubbard of GI at [facility] has said a pleurex is not recommended due to high risk infection. Patient Goals: 1. Patient wants to be told the truth about her illness, even if it is unpleasant. 2. Patient would like to be told prognosis when it can be predicted, to better guide treatment decisions. Additional Medical Diagnoses with primary management by Hospitalist team include : # Gastrointestinal bleed from esophageal varices. Acute Present on admission. Ongoing # Cryptogenic cirrhosis. Chronic. Present on admission. Ongoing # Blood loss anemia. Present on admission. Acute on chronic. Ongoing # Pancytopenia. Present on admission. Acute. Ongoing #Abdominal ascites. Present on admission. Ongoing. Chronic. #Initially suspected cellulitis of right wrist. Present on admission. Ruled out #Hypertension. Chronic. Present admission. Ongoing #Hyperlipidemia. Chronic. Present admission. Ongoing #Diabetes type II. Chronic. Present admission. Ongoing #Hypothyroidism. Chronic. Present on admission. Ongoing #BEBE on Chronic kidney disease. Present on admission. Ongoing Problems: End of Life Preferences DO NOT RESUSCITATE/DO NOT INTUBATE/limited interventions/hospitalization okay/ no artificial nutrition Goals of Care Continued supportive care and management of straightforward medical issues Says that she would generally want to avoid aggressive/invasive interventions, but IS willing to consider a Pleurx drain for her recurrent ascites Disposition Probably home with her daughter Resuscitation Status Resuscitation Status: DNR/DNI:Do Not Resuscitate/Intubate POLST Updates/Changes Previous POLST?: Yes POLST Last Review Date: September 12, 2016 Antibiotics: Use ABX if can Prolong Life Artificially Admin Nutrition: No Artifical Nutrition by Tube POLST Discussed with: Patient POLST Review Outcome: New Form Completed Total time 35 minutes; >50% face to face with patient and/or family, providing counselling regarding plans and recommendations, and in care coordination with his/her medical teams. copies to: Harsh Terrazas MD Palliative Brief Note Date of Service September 13, 2016 . Patient Identification: Ms. Vi Wynne is a 80-year-old female with past medical history of cryptogenic cirrhosis, pancytopenia - requiring blood transfusions q 2 weeks of 5-8Liters ascites, esophageal varices, renal insufficiency, with intact pacer/defibrillator admitted to [facility] 09/05 for hematemesis and maroon color stools. Just prior to ED arrival she was seeing oncologist Dr. Barron for biweekly paracentesis when she had acute onset of "burning" in her esophagus followed by hematemesis of bright red blood. Palliative medicine consulted to assist patient in determination of goals of care in the setting of her multiple medical problems. Prior to visiting patient, Dr. Greene reviewed her records in the EMR in detail , and spoke with her hospitalist Dr. Gonsales and her oncologist Dr. De Souza. Hospital Course: Bleeding has stabilized since admission. She continues with significant thrombocytopenia (platetets 27K on 09/13). She has recurrent ascites and had paracentesis last week. She has acute on chronic renal failure which has worsened over the last 48 hours. When I arrived to see her, she is sitting up at side of bed, eating lunch. She is oriented and appropriate. Answers all questions clearly and appropriately. We reviewed the conditions that led to this admission, her treatments here, and her various medical diagnoses, particularly the renal failure, that call for her continued admission. Reviewed her history of liver disease and chronic ascites- she notes that she has been receiving twice a month paracentesis for about one year now and feels that that situation is stable. She had a number of questions about her renal failure and we discussed these. She notes that she follows every 3 months with a railroad signal operator Dr. Solitario at the [facility], and she has never been told that she was in imminent need of dialysis. Generally, she feels that her health is stable and that her quality of life is stable and quite satisfactory. Krysta Greene MD September 13, 2016 10:05
[2016-09-13 13:50] VITALS: BP 134/68; PULSE 57; RESP 20; O2SAT 99
--- NOTE | 2016-09-13 14:37 | PCM.PNMED ---
Subjective Date of Service September 13, 2016 Subjective Patient seen and examined at bedside in the company of her daughter. States she is feeling stable at least no worse than the day before. Still feels relatively distended but is not affecting her breathing or causing her any acute pain. Any chest pains or any other discomfort. He also notes a normal stooling pattern no evidence of blood or dark tarry stools. Exam Vital Signs Vital Sign - Last Date Time Temp Pulse Resp B/P Pulse Ox O2 Delivery O2 Flow Rate FiO2 09/13/16 13:50 36.9 57 20 134/68 99 Room Air 09/07/16 18:44 1.00 Intake and Output 09/12/16 09/12/16 09/13/16 Cumulative From/Thru 15:00 23:00 07:00 09/05/16 12:22 - 09/13/16 06:08 Intake Total 950 ml 0 ml 60666 ml Output Total 500 ml 600 ml 7545 ml Balance 450 ml -600 ml 7024 ml Intake Oral 950 ml 0 ml 6560 ml IV Total 6437 ml Packed Cells 680 ml FFP 200 ml Platelets 692 ml Output Urine Total 500 ml 600 ml 6255 ml Urine/Stool Mix 1290 ml # Voids 5 # Bowel Movements 0 0 29 Exam General: Alert, Oriented X3, Cooperative, no acute Distress Mouth: Mucous Membranes Dry Abdomen: Non-tender, very Distended with fluid wave present, Normoactive bowel tones, Soft Extremities: No cyanosis/clubbing/edema bilat Neurological: Grossly Neurologically Intact IVs and Medications Medications Reviewed: Medications were reviewed in detail Lab and Diagnostics Result Diagram: 09/13/16 0415 09/13/16 0415 X-Rays, CTs and MRIs . X-RAY PICC LINE PLACEMENT BY NURSE IMPRESSION: Tip of PICC lies at the cavoatrial junction. Dictated by: Mehdi Cummings M.D. on 09/05/2016 at 17:41 PROCEDURE: NM BONE SCAN THREE PHASE RADIOPHARMACEUTICAL: 26.3 mCi Tc-99m MDP IV. INDICATIONS: RIGHT WRIST PAIN TECHNIQUE: Multiple bone scintigrams were obtained after intravenous injection of Tc-99m MDP, including flow, blood pool, and delayed images centered to the region of interest. COMPARISON: [facility], CR, XR WRIST 3VW RT, 09/06/2016, 9:25. FINDINGS: Immediate blood flow images demonstrate diffuse increased radiotracer involving the distal right forearm, the right wrist and the first second third and fourth DIP joints. Intermediate blood pool images demonstrate diffuse increased radiotracer in the distal right forearm, right wrist and first, second or third and fourth DIP joints. Delayed images demonstrate diffuse, increased radiotracer uptake involving the carpal bones, distal radius, distal ulna and first, second, third and fourth DIP joints. Finding is most suspicious for complex regional pain syndrome, however finding is nonspecific and infectious process cannot be completely excluded. Recommend nuclear medicine tagged white cell scan if there is clinical concern for cellulitis with osteomyelitis. IMPRESSION: Abnormal radiotracer activity in all 3 phases involving the distal radius, distal ulna, the carpal bones of the wrist and DIP joints of the hand most suspicious for a complex regional pain syndrome, however nuclear medicine tagged white cell scan is warranted if there is clinical concern for cellulitis with osteomyelitis. Dictated by: Magdalene Bello MD, PhD on 09/07/2016 at 15:39 Cardiac Echo Impressions . Echocardiogram Report Interpretation Summary: The left ventricle is mildly dilated. Left ventricular ejection fraction is estimated to be 40%. Apical and anteroseptal akinesis, inferoapical dyskinesis, c/w prior LAD infarct The right ventricle is mildly dilated. There is a pacemaker lead in the right ventricle. The left atrium is severely dilated. There is mild to moderate mitral regurgitation. There is no hemodynamically significant valvular aortic stenosis. There is moderate tricuspid regurgitation. The right ventricular systolic pressure is estimated at 51 mmHg assuming a right atrial pressure of 8 mm Hg. There is mild pulmonic regurgitation. There are large-sized bilateral pleural effusions noted. Electronically signed by: Yung Shahid on [facility] . US ABDOMEN DOPPLER, LIMITED IMPRESSION: 1. Cirrhotic appearance of the liver in no discrete focal hepatic abnormality is seen. 2. Enlarged portal vein otherwise normal hepatoportal Doppler assessment. 3. Splenomegaly suggesting portal hypertension. 4. Bilateral renal cortical thinning. 5. Moderate ascites. Dictated by: Frank Rosa RRA Interpreted: Edwin Biggs MD on 09/05/2016 at 15 :08 Esophagogastroduodenoscopy. IMPRESSION: 1. Large esophageal varices, status post band ligation x4. 2. Small esophageal varices. Sindhu Alvarado MD 09/05/16 2024 US GUIDED PARACENTESIS, PRIMARY FINDINGS: Access site: Right lower quadrant Needle: One-Step centesis catheter with introducer needle. Fluid volume and description: 4.1 L slightly bloody tinged peritoneal fluid. Fluid sent for diagnostic testing: Fluid sent for cytology, multiple chemistry panels and therapeutic drainage. Medications: 1% lidocaine for local anaesthesia. Complications: None. IMPRESSION: Successful ultrasound-guided paracentesis. Dictated by: Frank Rosa RRA Interpreted: Magdalene Bello MD on 09/06/2016 at 16:55 Assessment & Plan 80-year-old female past medical history of cryptogenic cirrhosis pancytopenia esophageal varices admitted for hematemesis and hematochezia. From ED C PICC line placement followed by GI upper and lower endoscopy for source identification. # Gastrointestinal bleed from esophageal varices. Acute Present on admission. Ongoing - GI following, appreciate their consultation - EGD 09/05 showed Large esophageal varices, status post band ligation x4 - No NG or OG tube placement - received 3 units PRBCs, - Continue to follow H&H, transfuse if hemoglobin less than 8 - Completed 72h octreotide - -Repeat endoscopy and banding in [address] Thakur per GI -Continue Protonix 40mg PO . Discontinued Carafate 1g PO QID 09/11 per GI. Continue PPI. may consider stopping PPI to see if platelet improves if platelets drop as per GI - Advance diet -patient refuses TIPS - H&H currently stable, no evidence of acute GI bleeding at this time, obtain observation and anticipate discharge home tomorrow if blood levels remain stable overnight. # Cryptogenic cirrhosis. Chronic. Present on admission. Ongoing - Completed octreotide as above - Started Nadolol 40mg daily. Lowered dose to 20 mg per day. continues to be bradycardic . discontinued due to bradycardia per GI .Child-Pug class B # Blood loss anemia. Present on admission. Acute on chronic. Ongoing - Transfuse threshold as above #BEBE -Creatinine was downward trending overnight -gave albumin 25 g 09/10 -Follow-up BMP tomorrow - Home aldactone 100 mg by mouth daily and lasix 40 mg daily resumed on 09/09. Ascites does not seem to be reaccumulating fast. Lowered Aldactone to 50 mg and Lasix 20 mg. Follow-up BMP in a.m. and adjust accordingly # Pancytopenia. Present on admission. Acute. Ongoing - Hematology oncology following, recommendations appreciated - Transfuse platelets, replete if less than 50,000 - 6 units platelets thus far . last transfusion 09/09 - Per heme/onc recommendations: -Patient is not getting her home promecta 25 mg MWF . Daughter brought medication from home today and started. - Anticipate need for platelet transfusion should paracentesis be considered tomorrow. Follow-up and labs. #Abdominal ascites. Present on admission. Ongoing. Chronic. - At baseline receives bimonthly paracentesis taking approximately 8 L off each time - Paracentesis 09/06/2016, 4 L fluid removed. Requested repeat paracentesis today 09/09. Volume not adequate for therapeutic paracentesis -Initially considered Pleurex placement . Patient gets paracentesis only 2 times per month. her distension is not tense at the moment. Patient has thrombocytopenia/pancytopenia and other comorbidities. I feel She will be at increased risk of bleeding and getting infection from Pleurex than twice a month paracentesis. May consider Pleurx placement outpatient if she requires more frequent paracentesis. -Completed 3 day ceftriaxone for SBP prophylaxis -started aldactone 100 daily and lasix 40 mg daily. lowered dose as above - Follow-up ultrasound tomorrow a.m., consider paracentesis followed by expectant discharge the patient remains medically stable. #Initially suspected cellulitis of right wrist. Present on admission. Ruled out - Infectious disease following, recommendations are appreciated - CXR shows possible osteomyelitis - Nuclear medicine scan consistent with regional pain syndrome -Completed Ceftriaxone 2 g daily for SBP prophylaxis - Continue to monitor #Hypertension. Chronic. Present admission. Ongoing -Resume home furosemide #Hyperlipidemia. Chronic. Present admission. Ongoing - Hold home atorvastatin 20 mg by mouth daily #Diabetes type II. Chronic. Present admission. Ongoing - Correctional scale insulin - A1c 6.1 #Hypothyroidism. Chronic. Present on admission. Ongoing - resume home levothyroxine 200 g #BEBE on Chronic kidney disease. Present on admission. Ongoing - Avoid nephrotoxic agents - IV hydration 100 mL normal saline - Creatinine remains elevated - Continue to monitor, renal function continues to be upper trending at this time Anticipate discharge home tomorrow , possibly following paracentesis based on a.m. ultrasound . Pain Evaluation: Adequate Pain Control GI Prophylaxis: Proton Pump Inhibitor VTE Prophylaxis: SCDs VTE Mechanical Devices: Intermittant Pneumatic CD Resuscitation Status: DNR/DNI:Do Not Resuscitate/Intubate Time spent 25 minutes Tenzin Gonsales DO September 13, 2016 14:37
--- NOTE | 2016-09-13 15:02 | NUR ---
SW - Continued Discharge Planning Data: Pt is on day 8 of hospitalization for GI bleed. EMR reviewed. Per interdisciplinary rounds pt will likely be here at least 2 more days. Palliative Care consult is pending and pt is stating she is not ready for hospice. SW choiced pt for HH RN services and pt stated preference is [facility]. SW called [facility] to refer, gave access. Face to face is in chart to be signed. Pt likely to discharge home via POV with HH RN services SW will continue to follow for needs Assessment: Pt who is independent at baseline and would benefit from HH RN. Plan:Pt likely to discharge home via POV with [facility] RN services. Access given and face to face to be signed in folder. Palliative consult pending. GERALDO will continue to follow for needs VELIA Harvey
[2016-09-13 16:18] VITALS: BP 135/66; PULSE 60; RESP 23; O2SAT 100
--- NOTE | 2016-09-13 18:47 | NUR ---
Student Nurse Note Patient refusing to wear non-skid socks. States she "doesn't like feet bound while in bed or sleeping."
--- NOTE | 2016-09-13 20:07 | PCM.PNMED ---
Subjective Date of Service September 13, 2016 Subjective no new complaints tolerating po, no nausea or vomiting post prandial epigastric pain she states is improved she does report early satiety secondary to ascites over past 2 days denies any melena , or hematochezia Exam Vital Signs Vital Sign - Last Date Time Temp Pulse Resp B/P Pulse Ox O2 Delivery O2 Flow Rate FiO2 09/13/16 16:18 36.9 60 23 135/66 100 Room Air 09/07/16 18:44 1.00 Intake and Output 09/12/16 09/12/16 09/13/16 Cumulative From/Thru 15:00 23:00 07:00 09/05/16 12:22 - 09/13/16 06:08 Intake Total 950 ml 0 ml 53079 ml Output Total 500 ml 600 ml 7545 ml Balance 450 ml -600 ml 7024 ml Intake Oral 950 ml 0 ml 6560 ml IV Total 6437 ml Packed Cells 680 ml FFP 200 ml Platelets 692 ml Output Urine Total 500 ml 600 ml 6255 ml Urine/Stool Mix 1290 ml # Voids 5 # Bowel Movements 0 0 29 Exam GEN- oriented to person, place and time HEENT- no icterus RESP-decreased breath sounds in bilateral bases CVS-RRR Abdomen-distended, fluid wave present, non tender EXT- edema present Neuro- no asterixis Lab and Diagnostics Result Diagram: 09/13/1641409/13/16414 X-Rays, CTs and MRIs . X-RAY PICC LINE PLACEMENT BY NURSE IMPRESSION: Tip of PICC lies at the cavoatrial junction. Dictated by: Mehdi Cummings M.D. on 09/05/2016 at 17:41 PROCEDURE: NM BONE SCAN THREE PHASE RADIOPHARMACEUTICAL: 26.3 mCi Tc-99m MDP IV. INDICATIONS: RIGHT WRIST PAIN TECHNIQUE: Multiple bone scintigrams were obtained after intravenous injection of Tc-99m MDP, including flow, blood pool, and delayed images centered to the region of interest. COMPARISON: [facility], CR, XR WRIST 3VW RT, 09/06/2016, 9:25. FINDINGS: Immediate blood flow images demonstrate diffuse increased radiotracer involving the distal right forearm, the right wrist and the first second third and fourth DIP joints. Intermediate blood pool images demonstrate diffuse increased radiotracer in the distal right forearm, right wrist and first, second or third and fourth DIP joints. Delayed images demonstrate diffuse, increased radiotracer uptake involving the carpal bones, distal radius, distal ulna and first, second, third and fourth DIP joints. Finding is most suspicious for complex regional pain syndrome, however finding is nonspecific and infectious process cannot be completely excluded. Recommend nuclear medicine tagged white cell scan if there is clinical concern for cellulitis with osteomyelitis. IMPRESSION: Abnormal radiotracer activity in all 3 phases involving the distal radius, distal ulna, the carpal bones of the wrist and DIP joints of the hand most suspicious for a complex regional pain syndrome, however nuclear medicine tagged white cell scan is warranted if there is clinical concern for cellulitis with osteomyelitis. Dictated by: Magdalene Bello MD, PhD on 09/07/2016 at 15:39 Cardiac Echo Impressions . Echocardiogram Report Interpretation Summary: The left ventricle is mildly dilated. Left ventricular ejection fraction is estimated to be 40%. Apical and anteroseptal akinesis, inferoapical dyskinesis, c/w prior LAD infarct The right ventricle is mildly dilated. There is a pacemaker lead in the right ventricle. The left atrium is severely dilated. There is mild to moderate mitral regurgitation. There is no hemodynamically significant valvular aortic stenosis. There is moderate tricuspid regurgitation. The right ventricular systolic pressure is estimated at 51 mmHg assuming a right atrial pressure of 8 mm Hg. There is mild pulmonic regurgitation. There are large-sized bilateral pleural effusions noted. Electronically signed by: Yung Shahid on [facility] . US ABDOMEN DOPPLER, LIMITED IMPRESSION: 1. Cirrhotic appearance of the liver in no discrete focal hepatic abnormality is seen. 2. Enlarged portal vein otherwise normal hepatoportal Doppler assessment. 3. Splenomegaly suggesting portal hypertension. 4. Bilateral renal cortical thinning. 5. Moderate ascites. Dictated by: Frank Rosa RRA Interpreted: Edwin Biggs MD on 09/05/2016 at 15 :08 Esophagogastroduodenoscopy. IMPRESSION: 1. Large esophageal varices, status post band ligation x4. 2. Small esophageal varices. Sindhu Alvarado MD 09/05/16 3817 US GUIDED PARACENTESIS, PRIMARY FINDINGS: Access site: Right lower quadrant Needle: One-Step centesis catheter with introducer needle. Fluid volume and description: 4.1 L slightly bloody tinged peritoneal fluid. Fluid sent for diagnostic testing: Fluid sent for cytology, multiple chemistry panels and therapeutic drainage. Medications: 1% lidocaine for local anaesthesia. Complications: None. IMPRESSION: Successful ultrasound-guided paracentesis. Dictated by: Frank NAVARRO Interpreted: Magdalene Bello MD on 09/06/2016 at 16:55 Assessment & Plan Post prandial epigastric pain -unclear etiology for pain, not present today -trial of levsin PRN -cont PPI -recommend d/c sucralfate Esopaheal variceal bleeding -H/H stable, no further overt bleeding -s/p EGD with band ligation -repeat EGD with band ligation as outpatient in 2 weeks -would avoid nadolol in setting of refractory ascites especiall with renal insufficiency -if H/H stable and serum creatinine improved , could discharge and follow up with Dr Thakur as outpatient Ascites -on diuretics would follow BMP and adjust dose accordingly -paracentesis as needed with IV albumin replacement if symptomatic -low sodium diet Cirrhosis -continue supportive care Renal insufficiency -follow BMP GI Prophylaxis: Proton Pump Inhibitor VTE Prophylaxis: SCDs VTE Mechanical Devices: Intermittant Pneumatic CD Resuscitation Status: DNR/DNI:Do Not Resuscitate/Intubate Sindhu Alvarado MD September 13, 2016 20:07
[2016-09-13 20:34] VITALS: BP 118/64; PULSE 60; RESP 20; O2SAT 98
[2016-09-13] MEDS: ALPRAZolam 0.5 mg Tablet PO PRN (22:38)
[2016-09-14 05:30] LABS: BASOPHILS % (AUTO) 0.4 % (0-3); MONOCYTES % (AUTO) 8.4 % (4-12); Mean Corpuscular Hemoglobin 29.7 pg (27.0-35.0)
[2016-09-14 05:31] LABS: Platelet Count 28 bil/L (150-400)
[2016-09-14 05:53] VITALS: BP 135/55; PULSE 72; RESP 20; O2SAT 97
[2016-09-14] MEDS: Insulin LISPRO 300 Unit/3 mL Inj SUBQ SCH ×3 (08:00→16:43)
[2016-09-14] MEDS: Sucralfate 1,000 mg Tablet PO SCH ×3 (09:12→16:40)
[2016-09-14] MEDS: Pantoprazole 40 mg ER24 Tablet PO SCH (09:12)
--- NOTE | 2016-09-14 09:35 | DRSVH ---
PROCEDURE: US ABDOMEN, LIMITED ([id number]) INDICATIONS: ascities, consideration for paracentesis. TECHNIQUE: Real-time focused scanning was performed of the abdomen, with image documentation. COMPARISON: [facility], , ABDOMEN LTD, 09/09/2016, 13:26. FINDINGS: Moderate amount of ascites is present within all 4 quadrants of the abdomen. IMPRESSION: Moderate ascites. Dictated by: Frank Rosa RRStevie Interpreted: Edwin Biggs MD on 09/14/2016 at 9:34 Transcribed by: ASHLEY on 09/14/2016 at 9:35 Approved by: Edwin Biggs M.D. on 09/14/2016 at 11:19
[2016-09-14] MEDS ORDERED: 0.9% Sodium Chloride 250 ML IV ONE (13:15)
--- NOTE | 2016-09-14 14:34 | NUR ---
Off unit Pt off unit at 1420 to FELISHA for u/s guided paracentesis. Report called to FAMILIA Han. Pt to receive platelets with paracentesis. Addendum: 09/14/16 at 1723 by VIANEY VERDE RN Pt back on unit at 1640. Per report from FAMILIA Han pt had 1.5L taken off and tolerated well. Platelets still infusing via PICC line, pt tolerating well. DC orders rec'd, pt eager to dc.
[2016-09-14 14:41] VITALS: BP 128/52; PULSE 58; RESP 14; O2SAT 97
[2016-09-14] MEDS ORDERED: OXYC5TAB72 PO (15:02)
[2016-09-14] MEDS ORDERED: FURO40TA4 PO (15:02)
[2016-09-14] MEDS ORDERED: SPIR25TA PO (15:02)
--- NOTE | 2016-09-14 15:06 | PCM.DIMED ---
Discharge Instructions Date of Service September 14, 2016 Dates of Hospitalization Sep 05, 2016 at 14:38 Discharge Diagnosis Discharge Diagnosis # Gastrointestinal bleed from esophageal varices. Acute Present on admission. Resolved Continue Omeprazole # Cryptogenic cirrhosis. Chronic. Present on admission. Chronic condition # Blood loss anemia. Present on admission. Acute on chronic. S/P blood transfusion. #Acute Kidney injury: Improved. Lasix dose decreased on discharge/. # Pancytopenia. Present on admission. Acute. Ongoing. Continue to follow with Dr. Barron #Abdominal ascites. Present on admission. Ongoing. Chronic.Status post Paracentesis on day of discharge. Follow up PRN for symptomatic treatment. #Initially suspected cellulitis of right wrist. Present on admission. Ruled out #Hypertension. Chronic. Present admission. Ongoing #Hyperlipidemia. Chronic. Present admission. Ongoing #Diabetes type II. Chronic. Present admission. Ongoing #Hypothyroidism. Chronic. Present on admission. Ongoing Diet No restrictions, Diabetic Activity No restrictions Call your provider Fever or Chills, Shortness of breath Patient Instructions Follow-up Provider: Moo Barron MD Follow-up with PCP in: 2 weeks Tenzin Gonsales DO September 14, 2016 15:06
--- NOTE | 2016-09-14 15:16 | PCM.DC.MED ---
Discharge Summary Date of Service September 14, 2016 Dates of Hospitalization Date of Hospital Admission Sep 05, 2016 at 14:38 Date of Discharge: September 14, 2016 Providers: Admitting Physician: Abigail Castanon DO Primary Care Physician: Liang Smith MD Attending Physician: Abigail Castanon DO Diagnosis at Time of Discharge Diagnosis at Time of Discharge # Gastrointestinal bleed from esophageal varices. Acute Present on admission. Resolved Continue Omeprazole # Cryptogenic cirrhosis. Chronic. Present on admission. Chronic condition # Blood loss anemia. Present on admission. Acute on chronic. S/P blood transfusion. #Acute Kidney injury: Improved. Lasix dose decreased on discharge/. # Pancytopenia. Present on admission. Acute. Ongoing. Continue to follow with Dr. Barron #Abdominal ascites. Present on admission. Ongoing. Chronic.Status post Paracentesis on day of discharge. Follow up PRN for symptomatic treatment. #Initially suspected cellulitis of right wrist. Present on admission. Ruled out #Hypertension. Chronic. Present admission. Ongoing #Hyperlipidemia. Chronic. Present admission. Ongoing #Diabetes type II. Chronic. Present admission. Ongoing #Hypothyroidism. Chronic. Present on admission. Ongoing Consultations Hem/Onco: Moo Barron GI: Dr. Alvarado ID: Dr. Cohen Procedures XRay, CTs & MRIs . X-RAY PICC LINE PLACEMENT BY NURSE IMPRESSION: Tip of PICC lies at the cavoatrial junction. Dictated by: Mehdi Cummings M.D. on 09/05/2016 at 17:41 PROCEDURE: NM BONE SCAN THREE PHASE RADIOPHARMACEUTICAL: 26.3 mCi Tc-99m MDP IV. INDICATIONS: RIGHT WRIST PAIN TECHNIQUE: Multiple bone scintigrams were obtained after intravenous injection of Tc-99m MDP, including flow, blood pool, and delayed images centered to the region of interest. COMPARISON: [facility], CR, XR WRIST 3VW RT, 09/06/2016, 9:25. FINDINGS: Immediate blood flow images demonstrate diffuse increased radiotracer involving the distal right forearm, the right wrist and the first second third and fourth DIP joints. Intermediate blood pool images demonstrate diffuse increased radiotracer in the distal right forearm, right wrist and first, second or third and fourth DIP joints. Delayed images demonstrate diffuse, increased radiotracer uptake involving the carpal bones, distal radius, distal ulna and first, second, third and fourth DIP joints. Finding is most suspicious for complex regional pain syndrome, however finding is nonspecific and infectious process cannot be completely excluded. Recommend nuclear medicine tagged white cell scan if there is clinical concern for cellulitis with osteomyelitis. IMPRESSION: Abnormal radiotracer activity in all 3 phases involving the distal radius, distal ulna, the carpal bones of the wrist and DIP joints of the hand most suspicious for a complex regional pain syndrome, however nuclear medicine tagged white cell scan is warranted if there is clinical concern for cellulitis with osteomyelitis. Dictated by: Magdalene Bello MD, PhD on 09/07/2016 at 15:39 Cardiac Echo Impression . Echocardiogram Report Interpretation Summary: The left ventricle is mildly dilated. Left ventricular ejection fraction is estimated to be 40%. Apical and anteroseptal akinesis, inferoapical dyskinesis, c/w prior LAD infarct The right ventricle is mildly dilated. There is a pacemaker lead in the right ventricle. The left atrium is severely dilated. There is mild to moderate mitral regurgitation. There is no hemodynamically significant valvular aortic stenosis. There is moderate tricuspid regurgitation. The right ventricular systolic pressure is estimated at 51 mmHg assuming a right atrial pressure of 8 mm Hg. There is mild pulmonic regurgitation. There are large-sized bilateral pleural effusions noted. Electronically signed by: Yung Shahid on Other [facility] . US ABDOMEN DOPPLER, LIMITED IMPRESSION: 1. Cirrhotic appearance of the liver in no discrete focal hepatic abnormality is seen. 2. Enlarged portal vein otherwise normal hepatoportal Doppler assessment. 3. Splenomegaly suggesting portal hypertension. 4. Bilateral renal cortical thinning. 5. Moderate ascites. Dictated by: Frank Rosa RR Interpreted: Ediwn Biggs MD on 09/05/2016 at 15 :08 Esophagogastroduodenoscopy. IMPRESSION: 1. Large esophageal varices, status post band ligation x4. 2. Small esophageal varices. Sindhu Alvarado MD 09/05/16 [id number] US GUIDED PARACENTESIS, PRIMARY FINDINGS: Access site: Right lower quadrant Needle: One-Step centesis catheter with introducer needle. Fluid volume and description: 4.1 L slightly bloody tinged peritoneal fluid. Fluid sent for diagnostic testing: Fluid sent for cytology, multiple chemistry panels and therapeutic drainage. Medications: 1% lidocaine for local anaesthesia. Complications: None. IMPRESSION: Successful ultrasound-guided paracentesis. Dictated by: Frank Rosa A Interpreted: Magdalene Bello MD on 09/06/2016 at 16:55 Brief History Per admission H&P: "Patient started to vomit blood yesterday AM while while preparing for a bi- weekly therapeutic paracentesis at her Oncology office. Thereafter, she also reported marooned color stool and was transferred to ED for evaluation. Blood work demonstrated normocytic anemia. All the while, US ultrasound confirmed nodular liver with portal hypertension with vein diameter dilated 18mm, enlarged spleen, and moderate ascites. Upper endoscopy performed same day showed esophageal varices, however unrevealing in the fact that there were no blood in stomach. Patient received a total of 3 pRBC and 3 packs of 6units platelets and transferred to CCU for further monitoring. Patient denies any recent hx of hematemesis or hematochezia, though does admits to hemorrhoids in the past. No hx of ETOH abuse, she has DM II for over 15yrs and was obese a few years back. Denies hx of SBP. Review of records showed pancytopenic since 2011. This includes WBC mid-2 -3's thousands, Hgb 9.0's, and Plt low-40's. She is currently on Promacta. She recently had 2 pRBC transfusion (08/24) due to symptomatic anemia. Unrelated, she was recently started on antibiotic for a Right hand/wrist infection. Right hand swelling/pain started about 6wks ago when she had IV line placed for paracentesis. She has received 3 courses of antibiotics without improvement, most recent doxycycline. Right hand more swollen, increasing pain. Movement exacerbate pain. Palliative medicine consulted to assist patient in determination of goals of care in the setting of her multiple medical problems. Prior to visiting patient, I reviewed her records in the EMR in detail, spoke with her hospitalists (last Monday and again today) and with her bedside nurse. Bleeding has stabilized since admission. She continues with significant thrombocytopenia. She has recurrent ascites and had paracentesis last week. She has acute on chronic renal failure which has worsened over the last 48 hours. When I arrived to see her, she is lying in bed but awakens easily and is oriented and appropriate. Answers all questions clearly and appropriately. We reviewed the conditions that led to this admission, her treatments here, and her various medical diagnoses, particularly the renal failure, that call for her continued admission. Reviewed her history of liver disease and chronic ascites- she notes that she has been receiving twice a month paracentesis for about one year now and feels that that situation is stable. She had a number of questions about her renal failure and we discussed these. She notes that she follows every 3 months with a finished cigar maker at the [facility], and she has never been told that she was in imminent need of dialysis. Generally, she feels that her health is stable and that her quality of life is stable and quite satisfactory. We talked about her wishes for ongoing medical treatment. She has a POLST at home (a copy of which is in her paper chart) and we reviewed its details- we will complete a new POLST for her prior to discharge as the current one is not quite correct in detailing her wishes." Hospital Course # Gastrointestinal bleed from esophageal varices. Acute Present on admission. Ongoing Condition thankfull resolved, though given underlying hematolgic condition continued transfusions likely to be necessary. Pt was kept on PPI on discharge at previous dosage. Sucrafate previously utilized discontinued. See below for hospital course related to this problem: - GI following, appreciate their consultation - EGD 09/05 showed Large esophageal varices, status post band ligation x4 - No NG or OG tube placement - received 3 units PRBCs, - Continue to follow H&H, transfuse if hemoglobin less than 8 - Completed 72h octreotide - -Repeat endoscopy and banding in [address] Thakur per GI -Continue Protonix 40mg PO . Discontinued Carafate 1g PO QID 09/11 per GI. Continue PPI. may consider stopping PPI to see if platelet improves if platelets drop as per GI - Advance diet -patient refuses TIPS - H&H currently stable, no evidence of acute GI bleeding at this time, obtain observation and anticipate discharge home tomorrow if blood levels remain stable overnight. - Pt did remain stable, no transfusion required prior to DC. # Cryptogenic cirrhosis. Chronic. Present on admission. Ongoing - Completed octreotide as above - Started Nadolol 40mg daily. Lowered dose to 20 mg per day. continues to be bradycardic . discontinued due to bradycardia per GI .Child-Pug class B # Blood loss anemia. Present on admission. Acute on chronic. Ongoing - Transfuse threshold as above Pt discharged in hemodynamically stable condition. #BEBE on CKD Improved through hospitlaization though remained impaired. Lasix dosage decreased in response, lowered to 20mg daily in addition to Aldactone. # Pancytopenia. Present on admission. Acute. Ongoing Pt stable but with profoundly lowered PLT levels. DC'd in hemodynamically stable condition. Transfusions provided during hospitalization provded little relief, continued to be downward trending, then stabilizing around a level of 30. #Abdominal ascites. Present on admission. Ongoing. Chronic. Paracentesis provided on day of DC follow FU abd US with infusion of PLTs provided during procedure. PT DC'd home with plan for future therapeutic taps as needed. See below for hospital course related to this problem: - At baseline receives bimonthly paracentesis taking approximately 8 L off each time - Paracentesis 09/06/2016, 4 L fluid removed. Requested repeat paracentesis today 09/09. Volume not adequate for therapeutic paracentesis -Initially considered Pleurex placement . Patient gets paracentesis only 2 times per month. her distension is not tense at the moment. Patient has thrombocytopenia/pancytopenia and other comorbidities. I feel She will be at increased risk of bleeding and getting infection from Pleurex than twice a month paracentesis. May consider Pleurx placement outpatient if she requires more frequent paracentesis. -Completed 3 day ceftriaxone for SBP prophylaxis -started aldactone 100 daily and lasix 40 mg daily. lowered dose as above - Follow-up ultrasound tomorrow a.m., consider paracentesis followed by expectant discharge the patient remains medically stable. #Initially suspected cellulitis of right wrist. Present on admission. Ruled out - Infectious disease following, recommendations are appreciated - CXR shows possible osteomyelitis - Nuclear medicine scan consistent with regional pain syndrome -Completed Ceftriaxone 2 g daily for SBP prophylaxis - Continue to monitor #Hypertension. Chronic. Present admission. Ongoing -Resume home furosemide at decreased dose of 20mg daily #Hyperlipidemia. Chronic. Present admission. Ongoing - Restarted atorvastatin 20 mg by mouth daily #Diabetes type II. Chronic. Present admission. Ongoing - Correctional scale insulin - A1c 6.1 #Hypothyroidism. Chronic. Present on admission. Ongoing - resumed home levothyroxine 200 g Exam Vital Signs (Last) Date Time Temp Pulse Resp B/P Pulse Ox O2 Delivery O2 Flow Rate FiO2 09/14/16 14:41 58 14 128/52 97 Room Air 09/14/16 05:53 36.8 Exam General: Alert, Oriented X3, Cooperative, no acute Distress Mouth: Mucous Membranes Dry Abdomen: Non-tender, very Distended with fluid wave present, Normoactive bowel tones, Soft Extremities: No cyanosis/clubbing/edema bilat Neurological: Grossly Neurologically Intact Test 09/05/16 12:08 09/06/16 04:45 09/06/16 16:38 09/07/16 04:50 Troponin T < 0.010ug/L (0.0-0.011) Hold Calvo Top Tube Received (Received) Lactic Acid Level 0.5mmol/L (0.4-2.0) Body Fluid Source Peritoneal fluid Body Fluid Color Yellow (Clear) Body Fluid Appearance Hazy Body Fluid WBC 8/mm3 Body Fluid RBC 28855/mm3 Body Fluid Polynuclear WBCs 9% Body Fluid Lymphocytes 33% Body Fluid Monocytes 58% Body Fluid Eosinophils 0% Body Fluid Basophils 0% Body Fluid Albumin 0.3g/dL (.) Body Fluid Lactate Dehydrogenase 27U/L Peritoneal Fluid Glucose 146mg/dL Band Neutrophils % 0% (1-5) Hemoglobin A1c 6.1% (4.8-5.6) Test 09/08/16 02:00 09/09/16 07:50 09/11/16 11:30 09/13/16 04:15 Procalcitonin 0.22ng/mL (0.00-0.08) Phosphorus Level 3.9mg/dL (2.5-4.9) Ammonia 35ug/dL (18-53) Prothrombin Time 16.4sec (8.1-12.5) Prothromb Time International Ratio 1.52ratio Magnesium Level 1.7mg/dL (1.6-2.6) Total Bilirubin 0.6mg/dL (0.0-1.2) Aspartate Amino Transf (AST/SGOT) 11U/L (0-50) Alanine Aminotransferase (ALT/SGPT) 5U/L (0-32) Alkaline Phosphatase 69U/L (25-165) Total Protein 6.7g/dL (6.4-8.4) Albumin 3.3g/dL (3.4-5.0) Test 09/14/16 05:00 White Blood Count 2.7th/mm3 (3.8-10.1) Red Blood Count 2.83mil/mm3 (3.90-5.20) Hemoglobin 8.4g/dL (12.0-15.6) Hematocrit 26.6% (35.0-46.0) Mean Corpuscular Volume 94.0fL (81-100) Mean Corpuscular Hemoglobin 29.7pg (27.0-35.0) Mean Corpuscular Hemoglobin Concent 31.6% (32.0-37.0) Red Cell Distribution Width 17.6% (12.3-15.4) Platelet Count 28bil/L (150-400) Neutrophils (%) (Auto) 74.0% (40-74) Lymphocytes (%) (Auto) 12.8% (14-46) Monocytes (%) (Auto) 8.4% (4-12) Eosinophils (%) (Auto) 4.0% (0-5) Basophils (%) (Auto) 0.4% (0-3) Sodium Level 135mEq/L (134-144) Potassium Level 5.1mEq/L (3.5-5.2) Chloride Level 105mEq/L (97-108) Carbon Dioxide Level 19mmol/L (18-29) Blood Urea Nitrogen 59mg/dL (8-27) Creatinine 2.24mg/dL (0.57-1.00) Estimat Glomerular Filtration Rate 30mL/min (>59) Glucose Level 105mg/dL (60-99) Calcium Level 8.3mg/dL (8.5-10.1) Discharge Medications Discharge Medications Atorvastatin Calcium (Atorvastatin Calcium) 20 Mg Tablet 20 MG PO DAILY ( Reported) Doxycycline Hyclate (Doxycycline Hyclate) 100 Mg Capsule 100 MG PO BID (Reported ) Eltrombopag Olamine (Promacta) 25 Mg Tablet 25 MG PO mon,wed, fri (Reported) M,W,F Ferrous Sulfate (Ferrous Sulfate) 325 Mg Tablet 325 MG PO DAILY (Reported) Folic Acid (Folic Acid) 0.4 Mg Tablet 0.4 MG PO DAILY (Reported) Furosemide (Furosemide) 40 Mg Tablet 20 MG PO DAILY Prescribed by: TENZIN GONSALES DO Insulin Glargine (Lantus U100 Insulin Vial) 100 Unit/Ml Vial 30-50 UNIT SUBQ QAM (Reported) Levothyroxine (Levothyroxine) 200 Mcg Tablet 200 MCG PO DAILY (Reported) Omeprazole Magnesium (Prilosec Otc) 20 Mg Tablet.dr 20 MG PO DAILY (Reported) Spironolactone (Aldactone) 25 Mg Tablet 50 MG PO DAILY Prescribed by: TENZIN GONSALES DO oxyCODONE (oxyCODONE) 5 Mg Tablet 2.5 MG PO BID Prescribed by: TENZIN GONSALES DO As needed Alprazolam (Alprazolam) 0.5 Mg Tablet 0.5 MG PO DAILY PRN PRN For Anxiety ( Reported) Cyclobenzaprine (Cyclobenzaprine) 10 Mg Tablet 10 MG PO DAILY PRN PRN For Pain ( Reported) Lactulose (Lactulose) 10 Gm/15 Ml Solution 15 ML PO BID PRN PRN For Constipation (Reported) Followup Plan Disposition: Home with family Discharge Diet: No restrictions, Diabetic Discharge Activity: No restrictions Follow-up Provider: Moo Barorn MD Follow-up with PCP in: 2 weeks Time spent 50 minutes Tenzin Gonsales DO September 14, 2016 15:16 Tenzin Gonsales DO September 14, 2016 15:16
[2016-09-14 15:20] VITALS: BP 128/52; PULSE 57; RESP 14; O2SAT 97
[2016-09-14 15:35] VITALS: BP 128/56; PULSE 62; RESP 14; O2SAT 98
--- NOTE | 2016-09-14 15:58 | DRSVH ---
PROCEDURE: US GUIDED PARACENTESIS, PRIMARY ([id number]) INDICATIONS: ascities, recurrent TECHNIQUE: The indications, alternatives, benefits, risks, and complications of the procedure were explained to the patient. Written informed consent was obtained and placed in the chart. The abdomen and pelvis were examined sonographically, and an appropriate site was chosen for paracentesis. The skin was pre pared and draped in the usual sterile fashion, and 1% lidocaine was infiltrated from the skin down th rough the peritoneal surface. A 19-gauge catheter-covered needle was then introduced into the perito keo space, the catheter was advanced and the needle was withdrawn, and thereafter peritoneal fluid w as withdrawn. The catheter was then removed and a dressing was applied. The fluid was discarded if the clinician did not order diagnostic testing of the fluid. COMPARISON: None. FINDINGS: Access site: Right lower quadrant Needle: One-Step centesis catheter with introducer needle. Fluid volume and description: 1.5 L of clear peritoneal fluid. Fluid sent for diagnostic testing: Therapeutic drainage. Medications: 1% lidocaine for local anaesthesia. Complications: None. IMPRESSION: Successful ultrasound-guided paracentesis. Dictated by: Frank NAVARRO Interpreted: Edwin Biggs MD on 09/14/2016 at 15:57 Transcribed by: ASHLEY on 09/14/2016 at 15:58 Approved by: Edwin Biggs M.D. on 09/14/2016 at 17:17
[2016-09-14] MEDS: ELTROMBOPAG 25 MG PO SCH (16:40)
[2016-09-14 16:44] VITALS: BP 144/66; PULSE 63; RESP 18; O2SAT 100
--- NOTE | 2016-09-14 18:36 | NUR ---
DISCHARGE Pt discharged this evening at 1830, accompanied off unit in w/c by ZAMZAM. Pt A&O, denies any pain/discomfort and in no apparent distress. Vital signs stable. IV PICC dc'd by IV therapy and all belongings returned. All instructions for prescriptions, follow up, diet, activity reviewed with patient who reports understanding.
--- NOTE | 2016-10-12 14:55 | NUR ---
Palliative care note D/A: Phone call to pt at her home ). She indicates she is doing better. Has good days and bad days but overall, things are improving somewhat. Pt sounds somewhat SOB. Note that she has had recent follow up with oncology. P: No further need for PC follow up. Alena NAIK, CCM
== END 2016-09-14 18:38 | disposition home or self-care (01) | DRG 432 ==
LOC: SED 12:18 → CCU 14:38 → PCC 09-07 08:45 → MPC 09-07 17:48
PROVIDERS: ADMIT Neuromusculoskeletal Medicine & OMM; ATTEND Neuromusculoskeletal Medicine & OMM
PROC: 30243R1 Transfusion of Nonautologous Platelets into Central Vein, Percutaneous Approach (ICD-10-PCS; 2016-09-05)
PROC: 06L34CZ Occlusion of Esophageal Vein with Extraluminal Device, Percutaneous Endoscopic Approach (ICD-10-PCS; principal; 2016-09-05 12:30)
PROC: 0W9G3ZX Drainage of Peritoneal Cavity, Percutaneous Approach, Diagnostic (ICD-10-PCS; 2016-09-06)
PROC: 30243N1 Transfusion of Nonautologous Red Blood Cells into Central Vein, Percutaneous Approach (ICD-10-PCS; 2016-09-06)
PROC: 30243R1 Transfusion of Nonautologous Platelets into Central Vein, Percutaneous Approach (ICD-10-PCS; 2016-09-06)
PROC: 30243R1 Transfusion of Nonautologous Platelets into Central Vein, Percutaneous Approach (ICD-10-PCS; 2016-09-07)
PROC: 30243R1 Transfusion of Nonautologous Platelets into Central Vein, Percutaneous Approach (ICD-10-PCS; 2016-09-09)
PROC: 0W9G3ZZ Drainage of Peritoneal Cavity, Percutaneous Approach (ICD-10-PCS; 2016-09-14)
PROC: 30243R1 Transfusion of Nonautologous Platelets into Central Vein, Percutaneous Approach (ICD-10-PCS; 2016-09-14)
DX: K74.69 Other cirrhosis of liver (principal); I85.11 Secondary esophageal varices with bleeding; D62 Acute posthemorrhagic anemia; R18.8 Other ascites; D61.818 Other pancytopenia; N17.9 Acute kidney failure, unspecified; G90.511 Complex regional pain syndrome I of right upper limb; E11.9 Type 2 diabetes mellitus without complications; Z79.4 Long term (current) use of insulin; D69.6 Thrombocytopenia, unspecified; E78.5 Hyperlipidemia, unspecified; E03.9 Hypothyroidism, unspecified; I12.9 Hypertensive chronic kidney disease with stage 1 through stage 4 chronic kidney disease, or unspecified chronic kidney disease; N18.9 Chronic kidney disease, unspecified; Z66 Do not resuscitate; Z95.810 Presence of automatic (implantable) cardiac defibrillator